=== PATIENT | male | born 1960 ===

== ENCOUNTER 2024-03-31 02:23 | Outpatient (BNV) | payer MEDICARE, MEDICAID, SELFPAY | END 2024-04-21 10:45 | PROVIDERS: Admitting Provider Psychiatry & Neurology Psychiatry; Visit Provider Radiology Diagnostic Radiology | DX: G44.309 Post-traumatic headache, unspecified, not intractable (principal) | CPT/HCPCS: 70450; 72125 ==

== ENCOUNTER 2024-03-31 02:23 | Inpatient (IN) | payer MEDICARE, MEDICAID, SELFPAY ==
--- NOTE | ~2024-03-31 | CT_ITS ---
EXAMINATION: CT HEAD WITHOUT CONTRAST CLINICAL INFORMATION: fall COMPARISON: None available. TECHNIQUE: Contiguous axial imaging was performed from the skull base to vertex without intravenous administration of contrast. This CT examination was performed using dose optimization techniques as appropriate, variously including the following: *Automated exposure control *Adjustment of mA and/or kV according to patient size (this includes techniques or standardized protocols for targeted exams where dose is matched to indication/reason for exam; i.e. extremities or head) *Use of iterative reconstruction technique DLP: 850 mGy-cm FINDINGS: Bony calvarium is intact. Skull base is intact. Probable old traumatic deformities, nasal bones. No acute intracranial hemorrhage, mass effect, midline shift, hydrocephalus or herniation. Heaton-white matter differentiation is normal. Posterior cranial fossa contents demonstrate no acute intracranial hemorrhage or mass effect. Bilateral multifocal patchy deep periventricular white matter hypodensities and slightly old appearing infarcts, basal ganglia, centrum semiovale and campbell radiata. Polypoid mucosal thickening, paranasal sinuses, more conspicuous on the right maxillary sinus. Increased density secretions, right maxillary sinus and right abnormal air cells. Tympanic cavities and mastoid air cells are aerated. CT/CT head/brain wo IV con IMPRESSION: No acute fracture, bony calvarium. No acute intracranial hemorrhage. Small vessel occlusive disease. Superimposed acute stroke/nonhemorrhagic ischemia cannot be excluded. Polypoid paranasal sinus disease. Blood products versus fungal infection, paranasal sinuses. Electronically signed by: Florencio Carrillo MD 04/21/2024 11:35 AM EDT
--- NOTE | ~2024-03-31 | XR_ITS ---
EXAMINATION: XR SHOULDER, RIGHT CLINICAL INFORMATION: Fall. Right shoulder pain COMPARISON: None available. TECHNIQUE: AP external rotation, Grashey, scapular Y, and axillary views of the right shoulder. FINDINGS: Diffuse osteopenia. Glenohumeral and acromioclavicular joint space and alignment are normal in appearance. Visualized right ribs and lung are normal in appearance. No dystrophic soft tissue calcifications. XR/XR shoulder RT min 2V IMPRESSION: No acute abnormalities. Electronically signed by: Jigar Benjamin MD 04/03/2024 07:30 AM EDT
--- NOTE | ~2024-03-31 | XR_ITS ---
EXAMINATION: XR CHEST CLINICAL INFORMATION: Chest pain and shortness of breath. COMPARISON: None available. TECHNIQUE: Frontal view of the chest was obtained. FINDINGS: Asymmetric elevation of the right hemidiaphragm. Mild subsegmental atelectasis in the right lower lung. No consolidation, pleural effusion or pneumothorax. Normal appearance of the cardiomediastinal silhouette. No acute osseous findings. XR/XR chest 1V IMPRESSION: Asymmetric elevation of the right hemidiaphragm with mild subsegmental atelectasis in the right lower lung. Electronically signed by: Keyanna Olea MD 04/13/2024 08:56 PM EDT
--- NOTE | ~2024-03-31 | CT_ITS ---
EXAMINATION: CT HEAD WITHOUT CONTRAST CLINICAL INFORMATION: Cognitive changes, hearing changes COMPARISON: None available. TECHNIQUE: Contiguous axial imaging was performed from the skull base to vertex without intravenous administration of contrast. This CT examination was performed using dose optimization techniques as appropriate, variously including the following: *Automated exposure control *Adjustment of mA and/or kV according to patient size (this includes techniques or standardized protocols for targeted exams where dose is matched to indication/reason for exam; i.e. extremities or head) *Use of iterative reconstruction technique DLP: 627 mGy-cm RESULTS: There is no evidence of acute intracranial hemorrhage, acute large vessel infarct, midline shift or mass effect. The braswell-white differentiation is preserved. There are patchy periventricular and subcortical white matter changes, which are nonspecific, but likely represent chronic microangiopathic change in a patient of this age. The ventricles and sulci are within normal limits in size and configuration. There is no evidence of hydrocephalus. There are no extraaxial collections. Osseous structures are intact. Paranasal sinuses and mastoid air cells are well aerated. CT/CT head/brain wo IV con IMPRESSION: 1. No acute intracranial pathology. 2. Mild chronic microangiopathic ischemic changes. Electronically signed by: Yanci Ramirez MD 04/15/2024 11:23 PM EDT
--- NOTE | ~2024-03-31 | CT_ITS ---
EXAMINATION: CT CERVICAL SPINE WITHOUT CONTRAST CLINICAL INFORMATION: Status post fall COMPARISON: None available. TECHNIQUE: Contiguous axial images from the skull base to the T1 using 2 mm collimation with bone and soft tissue algorithm. Sagittal and coronal reformatted images acquired. This CT examination was performed using dose optimization techniques as appropriate, variously including the following: *Automated exposure control *Adjustment of mA and/or kV according to patient size (this includes techniques or standardized protocols for targeted exams where dose is matched to indication/reason for exam; i.e. extremities or head) *Use of iterative reconstruction technique DLP: 374 mGy-cm FINDINGS: No acute cortical disruption or gross malalignment related to trauma. Marginal osteophyte formation, endplate sclerosis, subchondral cyst formation and decreased disc height C3 C7 more conspicuous at C5-6 and to a lesser extent C4-5. No prevertebral compartment hematoma. Degenerative changes in the periodontal C1 region. Grade 1 retrolisthesis C5-6 on a degenerative basis. Grade 1 anterolisthesis C3-4 on a degenerative basis. Vascular calcifications, carotid artery systems. There is a 9 mm soft tissue density in the midline of the infrahyoid thyrohyoid membrane. CT/CT cervical spine wo IV con IMPRESSION: Multilevel spondylosis without acute fracture or trauma-related listhesis. Thyroglossal duct cyst, infrahyoid. . Electronically signed by: Florencio Carrillo MD 04/21/2024 12:02 PM EDT
--- NOTE | ~2024-03-31 | XR_ITS ---
EXAMINATION: XR HIP, LEFT CLINICAL INFORMATION: Fall, left hip pain COMPARISON: None available. TECHNIQUE: Two views of the left hip. FINDINGS: No acetabular or pubic disruption seen. The femoral head and neck appear to be intact. No intertrochanteric disruption. Slight narrowing of the superior left hip joint space. XR/XR hip LT min 2V IMPRESSION: No acute fracture seen. Slight superior left hip joint space narrowing. Electronically signed by: Rocco Vila MD 04/21/2024 04:18 PM EDT
[2024-03-31 02:45] VITALS: BP 159/71; PULSE 82; RESP 16; TEMP 36.6; O2SAT 96
[2024-03-31] MEDS: traZODone HCL 50 MG TABLET PO ×2 (03:43→21:26)
[2024-03-31] MEDS: hydrOXYzine HCL 25 MG TABLET PO ×2 (03:43→21:27)
[2024-03-31 04:02] VITALS: BMI 28.0
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
[2024-03-31 08:00] VITALS: BP 140/85; PULSE 92; RESP 16; TEMP 36.6; O2SAT 98
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
[2024-03-31] MEDS: Acetaminophen 325 MG TABLET 650 MG PO (13:48)
[2024-03-31] MEDS: Famotidine 20 MG TABLET PO ×2 (16:21→21:16)
[2024-03-31] MEDS: Divalproex Sodium 250 MG TABLET.DR PO ×2 (16:22→21:16)
[2024-03-31 20:00] VITALS: BP 87/47; PULSE 101; RESP 16; TEMP 36.8; O2SAT 95
[2024-04-01] MEDS: OLANZapine 5 MG TABLET PO (01:31)
[2024-04-01] MEDS: Acetaminophen 325 MG TABLET 650 MG PO (01:31)
[2024-04-01] MEDS: traZODone HCL 50 MG TABLET PO (01:31)
[2024-04-01 08:00] VITALS: BP 112/70; PULSE 88; RESP 18; TEMP -12.3; TEMP 9.8; O2SAT 99
--- NOTE | 2024-04-01 09:04 | HO.PSYCHPN ---
Subjective Subjective Date of Service: 04/01/24 Reason For Visit: f32.A Subjective Notes: Conditional Voluntary Interim History: Reviewed with Dr. Rios. In bed most of shift. Patient declined to meet today due to feeling tired. Patient stated, I did not sleep well last night so I am just going to catch up on sleep. Can we meet tomorrow . Start: Melatonin 6mg PO bedtime Medication Compliance: Yes Side effects from medications: No Attending Groups: No Review of Systems Review of Systems Chronic hip, back, neck, shoulder pain Chronic nausea, no vomiting Chronic diffuse abd pain No acute medical complaints Constitutional: Reports as per HPI Eyes: Reports as per HPI Reports as per HPI Cardiovascular: Reports as per HPI Respiratory: Reports as per HPI Gastrointestinal: Reports as per HPI Genitourinary: Reports as per HPI Musculoskeletal: Reports as per HPI Skin/Breast: Reports as per HPI Reports as per HPI Psychiatric: Reports as per HPI Endocrine: Reports as per HPI Hematologic/Lymphatic: Reports as per HPI Allergic/Immunologic: Reports as per HPI Mental Status Exam Mental Status Exam Narrative: Pt is alert and oriented; behavior is cooperative and calm; dressed in casual attire; mood not assessed; eye contact appropriate; Speech is normal rate, volume and not pressured; thought process is organized; Thought content is on tx; SI/HI/AH/VH not expressed Diagnostics Vital Signs (24Hr): Vital Signs - 24 hr 03/31/24 20:00 Temperature 98.2 F Pulse Rate 101 H Respiratory Rate 16 Blood Pressure 87/47 L Pulse Oximetry 95 BMI result Body Mass Index 28.0 Labs 04/01/24 08:35 Medications Medications Current Medications Acetaminophen (Acetaminophen 325 Mg Tablet) 650 mg PO Q6H PRN PRN Reason: Headache/Pain Mild Scale (1-3) Last Admin: 04/01/24 01:31 Dose: 650 mg Al Hydroxide/Mg Hydroxide (Magnesium Hydrox/Alum Hydrox 30 Ml Oral.Susp) 30 ml PO Q6H PRN PRN Reason: Heartburn/Nausea Divalproex Sodium (Divalproex Sodium 250 Mg Tablet.) 250 mg PO BID [facility] Last Admin: 03/31/24 21:16 Dose: 250 mg Famotidine (Famotidine 20 Mg Tablet) 20 mg PO BID [facility] Last Admin: 03/31/24 21:16 Dose: 20 mg Hydroxyzine HCl (Hydroxyzine Hcl 25 Mg Tablet) 25 mg PO Q6H PRN PRN Reason: Anxiety Last Admin: 03/31/24 21:27 Dose: 25 mg Magnesium Hydroxide (Milk Of Magnesia 30 Ml Oral.Susp) 30 ml PO DAILY PRN PRN Reason: Constipation Nicotine Polacrilex (Nicotine Polacrilex 2 Mg Gum) 2 mg BUCCAL Q2H PRN PRN Reason: Nicotine Cravings Olanzapine (Olanzapine 5 Mg Tablet) 5 mg PO Q4H PRN PRN Reason: agitiation Last Admin: 04/01/24 01:31 Dose: 5 mg Ondansetron HCl (Ondansetron Odt 4 Mg Tab.Rapdis) 4 mg TRANSLINGU Q6H PRN PRN Reason: Nausea and Vomiting Trazodone HCl (Trazodone Hcl 50 Mg Tablet) 50 mg PO BEDTIME MRX1 PRN PRN Reason: Insomnia Last Admin: 04/01/24 01:31 Dose: 50 mg Allergies Allergies Allergy/AdvReac Type Severity Reaction Status Date / Time No Known Allergies Allergy Verified 03/31/24 03:15 Assessment & Plan Assessment & Plan (1) MDD (major depressive disorder), recurrent episode: Status: Acute Code(s): F33.9 - Major depressive disorder, recurrent, unspecified (2) PTSD (post-traumatic stress disorder): Status: Acute Code(s): F43.10 - Post-traumatic stress disorder, unspecified Plan Patient is a 63-year-old male who was brought in by ambulance to [facility] ER due to suicidal ideation and homicidal ideation secondary to getting into an argument with his roommate. Plan: CV 15 minute safety checks Start: Depakote 250mg PO BID Zyprexa 5mg PO Q4HR PRN Referral to outpatient psychiatric providers Encourage groups Discharge planning 04/01: In bed most of shift. Patient declined to meet today due to feeling tired. Patient stated, I did not sleep well last night so I am just going to catch up on sleep. Can we meet tomorrow . Start: Melatonin 6mg PO bedtime Patient educated on: medication risk/benefits Reason for continued inpatient stay Substantial Risk for: harm to self and med/psych decompensation Time Spent With Patient Time: Total time managing care of this patient today _15___ minutes.
[2024-04-01 09:09] LABS: Alanine Aminotransferase 48 U/L (0-40); Albumin Level 3.1 g/dL (3.5-5.0); Alkaline Phosphatase 70 U/L (39-117); Anion Gap 10 (12-20); Aspartate Amino Transferase 44 U/L (5-37); Bilirubin Total 0.4 mg/dL (0.0-1.0); Blood Urea Nitrogen 11 mg/dL (9-16); Calcium 8.6 mg/dL (8.4-10.2); Carbon Dioxide 26 mmol/L (22-29); Chloride 110 mmol/L (96-108); Cholesterol 120 mg/dL (<200); Creatinine Clr Calc Pharmacy 88.1; Estimated Glomerular Filt Rate > 60; Glucose Fasting 93 mg/dL (60-99); HDL Cholesterol 40 mg/dL (>40); Iron 180 mcg/dL (45-160); LDL Cholesterol Calculated 67 mg/dL (<100); Percent Iron Saturation 88 % (15-50); Potassium 3.4 mmol/L (3.3-5.1); Sodium 143 mmol/L (135-145); Total Iron Binding Capacity 205 mcg/dL (228-428); Triglycerides 67 mg/dL (<150); Unsaturated Iron Binding < 25 ug/dL
[2024-04-01 09:22] LABS: Thyroid Stimulating Hormone 1.98 uIU/mL (0.32-4.0)
[2024-04-01] MEDS: Famotidine 20 MG TABLET PO ×2 (09:25→22:21)
[2024-04-01] MEDS: Divalproex Sodium 250 MG TABLET.DR PO ×2 (09:25→22:21)
[2024-04-01 09:41] LABS: Folate 4.2 ng/mL (> or = 4.0); Vitamin B12 788 pg/mL (200-900)
[2024-04-01 20:00] VITALS: BP 117/71; PULSE 86; RESP 16; TEMP 36.5; O2SAT 98
[2024-04-01] MEDS: Melatonin 3 MG TABLET 6 MG PO (22:21)
[2024-04-02 08:15] VITALS: BP 112/60; PULSE 78; TEMP 36.4; O2SAT 96
--- NOTE | 2024-04-02 08:44 | P.PNPSI_ITS ---
Subjective Subjective Date of Service: 04/02/24 Reason For Visit: f32.A Subjective Notes: Conditional Voluntary Interim History: Reviewed with Dr. Rios. Pt continues to report depression and suicidal ideation. Pt stated, I'm still thinking about suicide. I would be more hopeful if I had somewhere safe to go after here . pt denies HI/VH/AH. Labs to be drawn tomorrow. Medication Compliance: Yes Side effects from medications: No Attending Groups: No Review of Systems Review of Systems Chronic hip, back, neck, shoulder pain Chronic nausea, no vomiting Chronic diffuse abd pain No acute medical complaints Constitutional: Reports as per HPI Eyes: Reports as per HPI Reports as per HPI Cardiovascular: Reports as per HPI Respiratory: Reports as per HPI Gastrointestinal: Reports as per HPI Genitourinary: Reports as per HPI Musculoskeletal: Reports as per HPI Skin/Breast: Reports as per HPI Reports as per HPI Psychiatric: Reports as per HPI Endocrine: Reports as per HPI Hematologic/Lymphatic: Reports as per HPI Allergic/Immunologic: Reports as per HPI Mental Status Exam Mental Status Exam Narrative: Pt is alert and oriented; behavior is cooperative and calm; dressed in casual attire; mood described as depressed ; eye contact appropriate; Speech is normal rate, volume and not pressured; thought process is organized; Thought content is on tx; denies HI/AH/VH. Pt reports suicidal ideation with no plan. Diagnostics Vital Signs (24Hr): Vital Signs - 24 hr 04/01/24 20:00 04/02/24 08:15 Temperature 97.7 F 97.6 F Pulse Rate 86 78 Respiratory Rate 16 Blood Pressure 117/71 112/60 Pulse Oximetry 98 96 Oxygen Delivery Method Room Air Room Air BMI result Body Mass Index 28.0 Labs 04/01/24 08:35 Labs: Laboratory Results - last 48 hr 04/01/24 08:35 Sodium 143 Potassium 3.4 Chloride 110 H Carbon Dioxide 26 Anion Gap 10 L BUN 11 Creatinine 0.68 Estim Creat Clear Calc 88.1 Estimated GFR > 60 Fasting Glucose 93 Calcium 8.6 Iron 180 H TIBC 205 L % Saturation 88 H Unsat Iron Binding < 25 Total Bilirubin 0.4 AST 44 H ALT 48 H Alkaline Phosphatase 70 Total Protein 5.0 L Albumin 3.1 L Triglycerides 67 Cholesterol 120 LDL Cholesterol, Calc 67 HDL Cholesterol 40 L Vitamin B12 788 Folate 4.2 TSH 1.98 Medications Medications Current Medications Acetaminophen (Acetaminophen 325 Mg Tablet) 650 mg PO Q6H PRN PRN Reason: Headache/Pain Mild Scale (1-3) Last Admin: 04/01/24 01:31 Dose: 650 mg Al Hydroxide/Mg Hydroxide (Magnesium Hydrox/Alum Hydrox 30 Ml Oral.Susp) 30 ml PO Q6H PRN PRN Reason: Heartburn/Nausea Divalproex Sodium (Divalproex Sodium 250 Mg Tablet.Dr) 250 mg PO BID [facility] Last Admin: 04/01/24 22:21 Dose: 250 mg Famotidine (Famotidine 20 Mg Tablet) 20 mg PO BID [facility] Last Admin: 04/01/24 22:21 Dose: 20 mg Hydroxyzine HCl (Hydroxyzine Hcl 25 Mg Tablet) 25 mg PO Q6H PRN PRN Reason: Anxiety Last Admin: 03/31/24 21:27 Dose: 25 mg Magnesium Hydroxide (Milk Of Magnesia 30 Ml Oral.Susp) 30 ml PO DAILY PRN PRN Reason: Constipation Melatonin (Melatonin 3 Mg Tablet) 6 mg PO BEDTIME [facility] Last Admin: 04/01/24 22:21 Dose: 6 mg Nicotine Polacrilex (Nicotine Polacrilex 2 Mg Gum) 2 mg BUCCAL Q2H PRN PRN Reason: Nicotine Cravings Olanzapine (Olanzapine 5 Mg Tablet) 5 mg PO Q4H PRN PRN Reason: agitiation Last Admin: 04/01/24 01:31 Dose: 5 mg Ondansetron HCl (Ondansetron Odt 4 Mg Tab.Rapdis) 4 mg TRANSLINGU Q6H PRN PRN Reason: Nausea and Vomiting Trazodone HCl (Trazodone Hcl 50 Mg Tablet) 50 mg PO BEDTIME MRX1 PRN PRN Reason: Insomnia Last Admin: 04/01/24 01:31 Dose: 50 mg Allergies Allergies Allergy/AdvReac Type Severity Reaction Status Date / Time No Known Allergies Allergy Verified 03/31/24 03:15 Assessment & Plan Assessment & Plan (1) MDD (major depressive disorder), recurrent episode: Status: Acute Code(s): F33.9 - Major depressive disorder, recurrent, unspecified (2) PTSD (post-traumatic stress disorder): Status: Acute Code(s): F43.10 - Post-traumatic stress disorder, unspecified Plan Patient is a 63-year-old male who was brought in by ambulance to [facility] due to suicidal ideation and homicidal ideation secondary to getting into an argument with his roommate. Plan: CV 15 minute safety checks Start: Depakote 250mg PO BID Zyprexa 5mg PO Q4HR PRN Referral to outpatient psychiatric providers Encourage groups Discharge planning 04/01: In bed most of shift. Patient declined to meet today due to feeling tired. Patient stated, I did not sleep well last night so I am just going to catch up on sleep. Can we meet tomorrow . Start: Melatonin 6mg PO bedtime 04/02: Pt continues to report depression and suicidal ideation. Pt stated, I'm still thinking about suicide. I would be more hopeful if I had somewhere safe to go after here . pt denies HI/VH/AH. Labs to be drawn tomorrow. Patient educated on: diagnosis, medication risk/benefits and therapeutic strategies Reason for continued inpatient stay Substantial Risk for: harm to self and med/psych decompensation Time Spent With Patient Time: Total time managing care of this patient today _20___ minutes.
[2024-04-02] MEDS: Famotidine 20 MG TABLET PO ×2 (09:54→21:44)
[2024-04-02] MEDS: Divalproex Sodium 250 MG TABLET.DR PO ×2 (09:54→21:44)
[2024-04-02 20:00] VITALS: BP 134/67; PULSE 88; TEMP 36.4; O2SAT 99
[2024-04-02] MEDS: Melatonin 3 MG TABLET 6 MG PO (21:44)
[2024-04-02] MEDS: Acetaminophen 325 MG TABLET 650 MG PO (21:49)
--- NOTE | 2024-04-03 00:14 | PC.NURSE ---
PT REPORTED THAT HE WAS PACING THE HALLWAY. PT HAS A WALKER BUT REFUSES TO USE IT. HE REPORTS LOSING HIS BALANCE AND SLIPPING. PT LANDED ON HIS RIGHT ARM. REPORTS 9/10 RIGHT SHOULDER PAIN AND IS HAVING DIFFICULTY MOVING HIS SHOULDER. PT REPORTS HE DID NOT HIT HIS HEAD. VITAL SIGNS 125/76, 78 BPM, 97% O2 SAT. ALERT AND ORIENTED X4. MD HANS MELGOZA CONTACTED AND ADVISED RN TO CONTACT HOSPITALIST. MD PULIDO NOTIFIED. XRAY OF RIGHT SHOULDER ORDERED.
[2024-04-03 00:15] VITALS: BP 125/76; PULSE 78; RESP 16; TEMP 36.8; O2SAT 97
[2024-04-03 08:00] VITALS: BP 120/67; PULSE 80; TEMP 36.9; O2SAT 99
[2024-04-03] MEDS: Acetaminophen 325 MG TABLET 650 MG PO ×3 (08:22→20:20)
[2024-04-03] MEDS: Famotidine 20 MG TABLET PO ×2 (08:23→20:20)
[2024-04-03] MEDS: Divalproex Sodium 250 MG TABLET.DR PO ×2 (08:23→20:20)
[2024-04-03] MEDS: OLANZapine 5 MG TABLET PO (08:24)
[2024-04-03 08:40] LABS: Ammonia 38 umol/L (13-55)
[2024-04-03 08:51] LABS: Alanine Aminotransferase 54 U/L (0-40); Albumin Level 3.8 g/dL (3.5-5.0); Alkaline Phosphatase 78 U/L (39-117); Aspartate Amino Transferase 43 U/L (5-37); Bilirubin Direct 0.1 mg/dL (0.0-0.5); Bilirubin Total 0.3 mg/dL (0.0-1.0); Total Protein 6.2 g/dL (6.5-8.0)
[2024-04-03 09:04] LABS: Valproate 50.2 mcg/mL (50.0-100.0)
--- NOTE | 2024-04-03 10:59 | HO.PSYCHPN ---
Subjective Subjective Date of Service: 04/03/24 Reason For Visit: f32.A Interim History: met with patient; discussed with team pt reports he's depressed and with SI (though not with active plan/intent)...he says he's in a real dark place. Discussed meds and he agrees to changes including increase of depakote Mental Status Exam Mental Status Exam Narrative: Pt is alert and oriented; behavior is cooperative and calm; dressed in casual attire; mood described as depressed ; eye contact appropriate; Speech is normal rate, volume and not pressured; thought process is organized; Thought content is on tx; denies HI/AH/VH. Pt reports suicidal ideation with no plan. Diagnostics Vital Signs (24Hr): Vital Signs - 24 hr 04/02/24 20:00 04/03/24 00:15 04/03/24 08:00 Temperature 97.6 F 98.2 F 98.4 F Pulse Rate 88 78 80 Respiratory Rate 16 Blood Pressure 134/67 125/76 120/67 Pulse Oximetry 99 97 99 Oxygen Delivery Method Room Air Room Air BMI result Body Mass Index 28.0 Labs 04/01/24 08:35 Labs: Laboratory Results - last 48 hr 04/03/24 08:20 Total Bilirubin 0.3 Direct Bilirubin 0.1 AST 43 H ALT 54 H Alkaline Phosphatase 78 Ammonia 38 Total Protein 6.2 L Albumin 3.8 Valproic Acid 50.2 Imaging Radiology Impressions: ITS Impressions Shoulder X-Ray 04/03/24 00:35 IMPRESSION: No acute abnormalities. Electronically signed by: Jigar Benjamin MD 04/03/2024 07:30 AM EDT Medications Medications Current Medications Acetaminophen (Acetaminophen 325 Mg Tablet) 650 mg PO Q6H PRN PRN Reason: Headache/Pain Mild Scale (1-3) Last Admin: 04/03/24 08:22 Dose: 650 mg Al Hydroxide/Mg Hydroxide (Magnesium Hydrox/Alum Hydrox 30 Ml Oral.Susp) 30 ml PO Q6H PRN PRN Reason: Heartburn/Nausea Divalproex Sodium (Divalproex Sodium 250 Mg Tablet.Dr) 250 mg PO BID [facility] Last Admin: 04/03/24 08:23 Dose: 250 mg Famotidine (Famotidine 20 Mg Tablet) 20 mg PO BID [facility] Last Admin: 04/03/24 08:23 Dose: 20 mg Hydroxyzine HCl (Hydroxyzine Hcl 25 Mg Tablet) 25 mg PO Q6H PRN PRN Reason: Anxiety Last Admin: 03/31/24 21:27 Dose: 25 mg Magnesium Hydroxide (Milk Of Magnesia 30 Ml Oral.Susp) 30 ml PO DAILY PRN PRN Reason: Constipation Melatonin (Melatonin 3 Mg Tablet) 6 mg PO BEDTIME [facility] Last Admin: 04/02/24 21:44 Dose: 6 mg Nicotine Polacrilex (Nicotine Polacrilex 2 Mg Gum) 2 mg BUCCAL Q2H PRN PRN Reason: Nicotine Cravings Olanzapine (Olanzapine 5 Mg Tablet) 5 mg PO Q4H PRN PRN Reason: agitiation Last Admin: 04/03/24 08:24 Dose: 5 mg Ondansetron HCl (Ondansetron Odt 4 Mg Tab.Rapdis) 4 mg TRANSLINGU Q6H PRN PRN Reason: Nausea and Vomiting Trazodone HCl (Trazodone Hcl 50 Mg Tablet) 50 mg PO BEDTIME MRX1 PRN PRN Reason: Insomnia Last Admin: 04/01/24 01:31 Dose: 50 mg Allergies Allergies Allergy/AdvReac Type Severity Reaction Status Date / Time No Known Allergies Allergy Verified 03/31/24 03:15 Assessment & Plan Assessment & Plan (1) MDD (major depressive disorder), recurrent episode: Status: Acute Code(s): F33.9 - Major depressive disorder, recurrent, unspecified (2) PTSD (post-traumatic stress disorder): Status: Acute Code(s): F43.10 - Post-traumatic stress disorder, unspecified Plan Patient is a 63-year-old male who was brought in by ambulance to [facility] ER due to suicidal ideation and homicidal ideation secondary to getting into an argument with his roommate. Plan: CV 15 minute safety checks Start: Depakote 250mg PO BID Zyprexa 5mg PO Q4HR PRN Referral to outpatient psychiatric providers Encourage groups Discharge planning 04/01: In bed most of shift. Patient declined to meet today due to feeling tired. Patient stated, I did not sleep well last night so I am just going to catch up on sleep. Can we meet tomorrow . Start: Melatonin 6mg PO bedtime 04/02: Pt continues to report depression and suicidal ideation. Pt stated, I'm still thinking about suicide. I would be more hopeful if I had somewhere safe to go after here . pt denies HI/VH/AH. Labs to be drawn tomorrow. 04/03 pt reports he's depressed and with SI (though not with active plan/intent)...he says he's in a real dark place. Discussed meds and he agrees to changes including increase of depakote -pt was started on Depakote for mood; he remains depressed and scientific writer considered increasing Depakote, however dx is MDD. Patient educated on: diagnosis and medication risk/benefits Informed Consent: understands, does not understand and further education needed Reason for continued inpatient stay Substantial Risk for: rapid decompensation Time Spent With Patient Time: Total time managing care of this patient today ____ minutes.
[2024-04-03 20:00] VITALS: BP 101/57; PULSE 73; RESP 16; TEMP 36.6; O2SAT 95
[2024-04-03] MEDS: Melatonin 3 MG TABLET 6 MG PO (20:20)
[2024-04-04 08:00] VITALS: BP 153/85; PULSE 66; RESP 18; TEMP 36.4; O2SAT 97
[2024-04-04] MEDS: Divalproex Sodium 250 MG TABLET.DR PO ×2 (08:17→21:08)
[2024-04-04] MEDS: Ibuprofen 600 MG TABLET PO ×2 (08:18→15:33)
[2024-04-04] MEDS: Famotidine 20 MG TABLET PO ×2 (08:18→21:08)
--- NOTE | 2024-04-04 15:22 | P.PNPSI_ITS ---
Subjective Subjective Date of Service: 04/04/24 Reason For Visit: f32.A Interim History: Met with patient; discussed with team Patient says that his mood is a little better. But he says it is because he is stoned on the medications he is on. He says he feels a little drowsy from them too. Mental Status Exam Mental Status Exam Narrative: Pt is alert and oriented; behavior is cooperative and calm; dressed in casual attire; mood described as little better ; eye contact appropriate; Speech is normal rate, volume and not pressured; thought process is organized; Thought content is on tx; denies HI/AH/VH. Pt reports suicidal ideation with no plan. Diagnostics Vital Signs (24Hr): Vital Signs - 24 hr 04/03/24 20:00 04/04/24 08:00 Temperature 97.9 F 97.6 F Pulse Rate 73 66 Respiratory Rate 16 18 Blood Pressure 101/57 L 153/85 H Pulse Oximetry 95 97 Oxygen Delivery Method Room Air Room Air BMI result Body Mass Index 28.0 Labs 04/01/24 08:35 Labs: Laboratory Results - last 48 hr 04/03/24 08:20 Total Bilirubin 0.3 Direct Bilirubin 0.1 AST 43 H ALT 54 H Alkaline Phosphatase 78 Ammonia 38 Total Protein 6.2 L Albumin 3.8 Valproic Acid 50.2 Imaging Radiology Impressions: ITS Impressions Shoulder X-Ray 04/03/24 00:35 IMPRESSION: No acute abnormalities. Electronically signed by: Jigar Benjamin MD 04/03/2024 07:30 AM EDT Medications Medications Current Medications Acetaminophen (Acetaminophen 325 Mg Tablet) 650 mg PO Q6H PRN PRN Reason: Headache/Pain Mild Scale (1-3) Last Admin: 04/03/24 20:20 Dose: 650 mg Al Hydroxide/Mg Hydroxide (Magnesium Hydrox/Alum Hydrox 30 Ml Oral.Susp) 30 ml PO Q6H PRN PRN Reason: Heartburn/Nausea Divalproex Sodium (Divalproex Sodium 250 Mg Tablet.Dr) 250 mg PO BID [facility] Last Admin: 04/04/24 08:17 Dose: 250 mg Famotidine (Famotidine 20 Mg Tablet) 20 mg PO BID [facility] Last Admin: 04/04/24 08:18 Dose: 20 mg Hydroxyzine HCl (Hydroxyzine Hcl 25 Mg Tablet) 25 mg PO Q6H PRN PRN Reason: Anxiety Last Admin: 03/31/24 21:27 Dose: 25 mg Ibuprofen (Ibuprofen 600 Mg Tablet) 600 mg PO Q6H PRN PRN Reason: moderate pain Last Admin: 04/04/24 08:18 Dose: 600 mg Magnesium Hydroxide (Milk Of Magnesia 30 Ml Oral.Susp) 30 ml PO DAILY PRN PRN Reason: Constipation Melatonin (Melatonin 3 Mg Tablet) 6 mg PO BEDTIME [facility] Last Admin: 04/03/24 20:20 Dose: 6 mg Nicotine Polacrilex (Nicotine Polacrilex 2 Mg Gum) 2 mg BUCCAL Q2H PRN PRN Reason: Nicotine Cravings Olanzapine (Olanzapine 5 Mg Tablet) 5 mg PO Q4H PRN PRN Reason: agitiation Last Admin: 04/03/24 08:24 Dose: 5 mg Ondansetron HCl (Ondansetron Odt 4 Mg Tab.Rapdis) 4 mg TRANSLINGU Q6H PRN PRN Reason: Nausea and Vomiting Trazodone HCl (Trazodone Hcl 50 Mg Tablet) 50 mg PO BEDTIME MRX1 PRN PRN Reason: Insomnia Last Admin: 04/01/24 01:31 Dose: 50 mg Allergies Allergies Allergy/AdvReac Type Severity Reaction Status Date / Time No Known Allergies Allergy Verified 03/31/24 03:15 Assessment & Plan Assessment & Plan (1) MDD (major depressive disorder), recurrent episode: Status: Acute Code(s): F33.9 - Major depressive disorder, recurrent, unspecified (2) PTSD (post-traumatic stress disorder): Status: Acute Code(s): F43.10 - Post-traumatic stress disorder, unspecified Plan Patient is a 63-year-old male who was brought in by ambulance to [facility] due to suicidal ideation and homicidal ideation secondary to getting into an argument with his roommate. Plan: CV 15 minute safety checks Start: Depakote 250mg PO BID Zyprexa 5mg PO Q4HR PRN Referral to outpatient psychiatric providers Encourage groups Discharge planning 04/01: In bed most of shift. Patient declined to meet today due to feeling tired. Patient stated, I did not sleep well last night so I am just going to catch up on sleep. Can we meet tomorrow . Start: Melatonin 6mg PO bedtime 04/02: Pt continues to report depression and suicidal ideation. Pt stated, I'm still thinking about suicide. I would be more hopeful if I had somewhere safe to go after here . pt denies HI/VH/AH. Labs to be drawn tomorrow. 04/03 pt reports he's depressed and with SI (though not with active plan/intent)...he says he's in a real dark place. 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 04/04 Patient says that his mood is a little better. But he says it is because he is stoned on the medications he is on. He says he feels a little drowsy from them too. -will defer medication management to returning provider Patient educated on: diagnosis and medication risk/benefits Informed Consent: understands, does not understand and further education needed Reason for continued inpatient stay Substantial Risk for: rapid decompensation Time Spent With Patient Time: Total time managing care of this patient today ____ minutes.
[2024-04-04 20:00] VITALS: BP 121/56; PULSE 75; RESP 16; TEMP 36.1
[2024-04-04] MEDS: Acetaminophen 325 MG TABLET 650 MG PO (21:07)
[2024-04-04] MEDS: Melatonin 3 MG TABLET 6 MG PO (21:08)
[2024-04-05 08:00] VITALS: BP 126/73; PULSE 74; RESP 16; TEMP 36.5; O2SAT 96
[2024-04-05] MEDS: Divalproex Sodium 250 MG TABLET.DR PO ×2 (08:16→22:04)
[2024-04-05] MEDS: OLANZapine 5 MG TABLET PO ×2 (08:16→23:41)
[2024-04-05] MEDS: Famotidine 20 MG TABLET PO ×2 (08:16→22:03)
[2024-04-05] MEDS: Ibuprofen 600 MG TABLET PO ×2 (08:16→22:04)
--- NOTE | 2024-04-05 11:00 | HO.PSYCHPN ---
Subjective Subjective Date of Service: 04/05/24 Reason For Visit: f32.A Subjective Notes: Conditional Voluntary Interim History: Reviewed with Dr. Rios. Pt reports feeling down and anxious d/t thinking about the future and not know what will happen. Pt reports suicidal ideation with no plan d/t not having anywhere to go . He feels medications are helping with his mood. denies HI/VH/AH. Medication Compliance: Yes Side effects from medications: No Review of Systems Review of Systems Chronic hip, back, neck, shoulder pain Chronic nausea, no vomiting Chronic diffuse abd pain No acute medical complaints Constitutional: Reports as per HPI Eyes: Reports as per HPI Reports as per HPI Cardiovascular: Reports as per HPI Respiratory: Reports as per HPI Gastrointestinal: Reports as per HPI Genitourinary: Reports as per HPI Musculoskeletal: Reports as per HPI Skin/Breast: Reports as per HPI Reports as per HPI Psychiatric: Reports as per HPI Endocrine: Reports as per HPI Hematologic/Lymphatic: Reports as per HPI Allergic/Immunologic: Reports as per HPI Mental Status Exam Mental Status Exam Narrative: Pt is alert and oriented; behavior is cooperative and calm; dressed in casual attire; mood described as little better ; eye contact appropriate; Speech is normal rate, volume and not pressured; thought process is organized; Thought content is on tx; denies HI/AH/VH. Pt reports suicidal ideation with no plan. Diagnostics Vital Signs (24Hr): Vital Signs - 24 hr 04/04/24 20:00 04/05/24 08:00 Temperature 97 F 97.7 F Pulse Rate 75 74 Respiratory Rate 16 16 Blood Pressure 121/56 L 126/73 Pulse Oximetry 96 Oxygen Delivery Method Room Air Room Air BMI result Body Mass Index 28.0 Labs 04/01/24 08:35 Imaging Radiology Impressions: ITS Impressions Shoulder X-Ray 04/03/24 00:35 IMPRESSION: No acute abnormalities. Electronically signed by: Jigar Benjamin MD 04/03/2024 07:30 AM EDT Medications Medications Current Medications Acetaminophen (Acetaminophen 325 Mg Tablet) 650 mg PO Q6H PRN PRN Reason: Headache/Pain Mild Scale (1-3) Last Admin: 04/04/24 21:07 Dose: 650 mg Al Hydroxide/Mg Hydroxide (Magnesium Hydrox/Alum Hydrox 30 Ml Oral.Susp) 30 ml PO Q6H PRN PRN Reason: Heartburn/Nausea Divalproex Sodium (Divalproex Sodium 250 Mg Tablet.Dr) 250 mg PO BID [facility] Last Admin: 04/05/24 08:16 Dose: 250 mg Famotidine (Famotidine 20 Mg Tablet) 20 mg PO BID [facility] Last Admin: 04/05/24 08:16 Dose: 20 mg Hydroxyzine HCl (Hydroxyzine Hcl 25 Mg Tablet) 25 mg PO Q6H PRN PRN Reason: Anxiety Last Admin: 03/31/24 21:27 Dose: 25 mg Ibuprofen (Ibuprofen 600 Mg Tablet) 600 mg PO Q6H PRN PRN Reason: moderate pain Last Admin: 04/05/24 08:16 Dose: 600 mg Magnesium Hydroxide (Milk Of Magnesia 30 Ml Oral.Susp) 30 ml PO DAILY PRN PRN Reason: Constipation Melatonin (Melatonin 3 Mg Tablet) 6 mg PO BEDTIME [facility] Last Admin: 04/04/24 21:08 Dose: 6 mg Nicotine Polacrilex (Nicotine Polacrilex 2 Mg Gum) 2 mg BUCCAL Q2H PRN PRN Reason: Nicotine Cravings Olanzapine (Olanzapine 5 Mg Tablet) 5 mg PO Q4H PRN PRN Reason: agitiation Last Admin: 04/05/24 08:16 Dose: 5 mg Ondansetron HCl (Ondansetron Odt 4 Mg Tab.Rapdis) 4 mg TRANSLINGU Q6H PRN PRN Reason: Nausea and Vomiting Trazodone HCl (Trazodone Hcl 50 Mg Tablet) 50 mg PO BEDTIME MRX1 PRN PRN Reason: Insomnia Last Admin: 04/01/24 01:31 Dose: 50 mg Allergies Allergies Allergy/AdvReac Type Severity Reaction Status Date / Time No Known Allergies Allergy Verified 03/31/24 03:15 Assessment & Plan Assessment & Plan (1) MDD (major depressive disorder), recurrent episode: Status: Acute Code(s): F33.9 - Major depressive disorder, recurrent, unspecified (2) PTSD (post-traumatic stress disorder): Status: Acute Code(s): F43.10 - Post-traumatic stress disorder, unspecified Plan Patient is a 63-year-old male who was brought in by ambulance to [facility] due to suicidal ideation and homicidal ideation secondary to getting into an argument with his roommate. Plan: CV 15 minute safety checks Start: Depakote 250mg PO BID Zyprexa 5mg PO Q4HR PRN Referral to outpatient psychiatric providers Encourage groups Discharge planning 04/01: In bed most of shift. Patient declined to meet today due to feeling tired. Patient stated, I did not sleep well last night so I am just going to catch up on sleep. Can we meet tomorrow . Start: Melatonin 6mg PO bedtime 04/02: Pt continues to report depression and suicidal ideation. Pt stated, I'm still thinking about suicide. I would be more hopeful if I had somewhere safe to go after here . pt denies HI/VH/AH. Labs to be drawn tomorrow. 04/03 pt reports he's depressed and with SI (though not with active plan/intent)...he says he's in a real dark place. 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 04/04 Patient says that his mood is a little better. But he says it is because he is stoned on the medications he is on. He says he feels a little drowsy from them too. -will defer medication management to returning provider 04/05: Pt reports feeling down and anxious d/t thinking about the future and not know what will happen. Pt reports suicidal ideation with no plan d/t not having anywhere to go . He feels medications are helping with his mood. denies HI/VH/AH. Patient educated on: diagnosis, medication risk/benefits and therapeutic strategies Reason for continued inpatient stay Substantial Risk for: harm to self and med/psych decompensation Time Spent With Patient Time: Total time managing care of this patient today _20___ minutes.
[2024-04-05 20:00] VITALS: BP 118/66; PULSE 86; TEMP 36.6; O2SAT 97
[2024-04-05] MEDS: traZODone HCL 50 MG TABLET PO (22:03)
[2024-04-05] MEDS: Melatonin 3 MG TABLET 6 MG PO (22:04)
[2024-04-05] MEDS: hydrOXYzine HCL 25 MG TABLET PO (23:41)
[2024-04-06 08:19] VITALS: BP 132/64; PULSE 79; TEMP 36.6; O2SAT 96
[2024-04-06] MEDS: Ibuprofen 600 MG TABLET PO ×2 (09:33→21:04)
[2024-04-06] MEDS: Divalproex Sodium 250 MG TABLET.DR PO ×2 (09:33→21:02)
[2024-04-06] MEDS: Famotidine 20 MG TABLET PO ×2 (09:33→21:02)
--- NOTE | 2024-04-06 14:01 | P.PNPSI_ITS ---
Subjective Subjective Date of Service: 04/06/24 Reason For Visit: f32.A Subjective Notes: Conditional Voluntary Interim History: Reviewed with Dr. Rios. Active on unit. pt reports feeling okay but anxious ; he continues to reports suicidal ideation with no plan. Pt stated, I'm worried I won't get into any where. I've been disappointed before with not getting placement . Pt reports difficulty sleeping. Start: Mirtazapine 7.5mg PO bedtime. denies HI/VH/AH. Medication Compliance: Yes Side effects from medications: No Attending Groups: No Review of Systems Review of Systems Chronic hip, back, neck, shoulder pain Chronic nausea, no vomiting Chronic diffuse abd pain No acute medical complaints Constitutional: Reports as per HPI Eyes: Reports as per HPI Reports as per HPI Cardiovascular: Reports as per HPI Respiratory: Reports as per HPI Gastrointestinal: Reports as per HPI Genitourinary: Reports as per HPI Musculoskeletal: Reports as per HPI Skin/Breast: Reports as per HPI Reports as per HPI Psychiatric: Reports as per HPI Endocrine: Reports as per HPI Hematologic/Lymphatic: Reports as per HPI Allergic/Immunologic: Reports as per HPI Mental Status Exam Mental Status Exam Narrative: Pt is alert and oriented; behavior is cooperative and calm; dressed in casual attire; mood described as little better ; eye contact appropriate; Speech is normal rate, volume and not pressured; thought process is organized; Thought content is on tx; denies HI/AH/VH. Pt reports suicidal ideation with no plan. Diagnostics Vital Signs (24Hr): Vital Signs - 24 hr 04/05/24 20:00 04/06/24 08:19 Temperature 97.9 F 97.8 F Pulse Rate 86 79 Blood Pressure 118/66 132/64 Pulse Oximetry 97 96 Oxygen Delivery Method Room Air Room Air BMI result Body Mass Index 28.0 Labs 04/01/24 08:35 Imaging Radiology Impressions: ITS Impressions Shoulder X-Ray 04/03/24 00:35 IMPRESSION: No acute abnormalities. Electronically signed by: Jigar Benjamin MD 04/03/2024 07:30 AM EDT Medications Medications Current Medications Acetaminophen (Acetaminophen 325 Mg Tablet) 650 mg PO Q6H PRN PRN Reason: Headache/Pain Mild Scale (1-3) Last Admin: 04/04/24 21:07 Dose: 650 mg Al Hydroxide/Mg Hydroxide (Magnesium Hydrox/Alum Hydrox 30 Ml Oral.Susp) 30 ml PO Q6H PRN PRN Reason: Heartburn/Nausea Divalproex Sodium (Divalproex Sodium 250 Mg Tablet.Dr) 250 mg PO BID [facility] Last Admin: 04/06/24 09:33 Dose: 250 mg Famotidine (Famotidine 20 Mg Tablet) 20 mg PO BID [facility] Last Admin: 04/06/24 09:33 Dose: 20 mg Hydroxyzine HCl (Hydroxyzine Hcl 25 Mg Tablet) 25 mg PO Q6H PRN PRN Reason: Anxiety Last Admin: 04/05/24 23:41 Dose: 25 mg Ibuprofen (Ibuprofen 600 Mg Tablet) 600 mg PO Q6H PRN PRN Reason: moderate pain Last Admin: 04/06/24 09:33 Dose: 600 mg Magnesium Hydroxide (Milk Of Magnesia 30 Ml Oral.Susp) 30 ml PO DAILY PRN PRN Reason: Constipation Melatonin (Melatonin 3 Mg Tablet) 6 mg PO BEDTIME [facility] Last Admin: 04/05/24 22:04 Dose: 6 mg Nicotine Polacrilex (Nicotine Polacrilex 2 Mg Gum) 2 mg BUCCAL Q2H PRN PRN Reason: Nicotine Cravings Olanzapine (Olanzapine 5 Mg Tablet) 5 mg PO Q4H PRN PRN Reason: agitiation Last Admin: 04/05/24 23:41 Dose: 5 mg Ondansetron HCl (Ondansetron Odt 4 Mg Tab.Rapdis) 4 mg TRANSLINGU Q6H PRN PRN Reason: Nausea and Vomiting Trazodone HCl (Trazodone Hcl 50 Mg Tablet) 50 mg PO BEDTIME MRX1 PRN PRN Reason: Insomnia Last Admin: 04/05/24 22:03 Dose: 50 mg Allergies Allergies Allergy/AdvReac Type Severity Reaction Status Date / Time No Known Allergies Allergy Verified 03/31/24 03:15 Assessment & Plan Assessment & Plan (1) MDD (major depressive disorder), recurrent episode: Status: Acute Code(s): F33.9 - Major depressive disorder, recurrent, unspecified (2) PTSD (post-traumatic stress disorder): Status: Acute Code(s): F43.10 - Post-traumatic stress disorder, unspecified Plan Patient is a 63-year-old male who was brought in by ambulance to [facility] due to suicidal ideation and homicidal ideation secondary to getting into an argument with his roommate. Plan: CV 15 minute safety checks Start: Depakote 250mg PO BID Zyprexa 5mg PO Q4HR PRN Referral to outpatient psychiatric providers Encourage groups Discharge planning 04/01: In bed most of shift. Patient declined to meet today due to feeling tired. Patient stated, I did not sleep well last night so I am just going to catch up on sleep. Can we meet tomorrow . Start: Melatonin 6mg PO bedtime 04/02: Pt continues to report depression and suicidal ideation. Pt stated, I'm still thinking about suicide. I would be more hopeful if I had somewhere safe to go after here . pt denies HI/VH/AH. Labs to be drawn tomorrow. 04/03 pt reports he's depressed and with SI (though not with active plan/intent)...he says he's in a real dark place. 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 04/04 Patient says that his mood is a little better. But he says it is because he is stoned on the medications he is on. He says he feels a little drowsy from them too. -will defer medication management to returning provider 04/05: Pt reports feeling down and anxious d/t thinking about the future and not know what will happen. Pt reports suicidal ideation with no plan d/t not having anywhere to go . He feels medications are helping with his mood. denies HI/VH/AH. 04/06:Active on unit. pt reports feeling okay but anxious ; he continues to reports suicidal ideation with no plan. Pt stated, I'm worried I won't get into any where. I've been disappointed before with not getting placement . Pt reports difficulty sleeping. Start: Mirtazapine 7.5mg PO bedtime. denies HI/VH/AH. Patient educated on: diagnosis, medication risk/benefits and therapeutic strategies Reason for continued inpatient stay Substantial Risk for: harm to self and med/psych decompensation Time Spent With Patient Time: Total time managing care of this patient today _20___ minutes.
[2024-04-06] MEDS: Acetaminophen 325 MG TABLET 650 MG PO (14:14)
[2024-04-06 20:00] VITALS: BP 138/77; PULSE 76; TEMP 36.4; O2SAT 99
[2024-04-06] MEDS: Mirtazapine 7.5 MG TABLET PO (21:02)
[2024-04-06] MEDS: Melatonin 3 MG TABLET 6 MG PO (21:02)
[2024-04-06] MEDS: hydrOXYzine HCL 25 MG TABLET PO (21:04)
[2024-04-07 08:03] VITALS: BP 114/59; PULSE 67; TEMP 36.6; O2SAT 98
[2024-04-07] MEDS: Divalproex Sodium 250 MG TABLET.DR PO ×2 (08:35→20:47)
[2024-04-07] MEDS: Famotidine 20 MG TABLET PO ×2 (08:35→20:46)
[2024-04-07] MEDS: Ibuprofen 600 MG TABLET PO ×2 (09:05→20:47)
--- NOTE | 2024-04-07 15:03 | HO.PSYCHPN ---
Subjective Subjective Date of Service: 04/07/24 Reason For Visit: f32.A Subjective Notes: Conditional Voluntary Interim History: Reviewed with Dr. Rios. pt reports feeling not great today; patient stated, I'm really missing my best friend today, who was like my brother. I don't have anything anymore . Patient continues to report suicidal ideation with no plan. Patient reports waking up a few times last night. denies HI/VH/AH. Continue current treatment plan. Medication Compliance: Yes Side effects from medications: No Review of Systems Review of Systems Chronic hip, back, neck, shoulder pain Chronic nausea, no vomiting Chronic diffuse abd pain No acute medical complaints Constitutional: Reports as per HPI Eyes: Reports as per HPI Reports as per HPI Cardiovascular: Reports as per HPI Respiratory: Reports as per HPI Gastrointestinal: Reports as per HPI Genitourinary: Reports as per HPI Musculoskeletal: Reports as per HPI Skin/Breast: Reports as per HPI Reports as per HPI Psychiatric: Reports as per HPI Endocrine: Reports as per HPI Hematologic/Lymphatic: Reports as per HPI Allergic/Immunologic: Reports as per HPI Mental Status Exam Mental Status Exam Narrative: Pt is alert and oriented; behavior is cooperative and calm; dressed in casual attire; mood described as sad ; eye contact appropriate; Speech is normal rate, volume and not pressured; thought process is organized; Thought content is on tx; denies HI/AH/VH. Pt reports suicidal ideation with no plan. Diagnostics Vital Signs (24Hr): Vital Signs - 24 hr 04/06/24 20:00 04/07/24 08:03 Temperature 97.6 F 97.8 F Pulse Rate 76 67 Blood Pressure 138/77 114/59 L Pulse Oximetry 99 98 Oxygen Delivery Method Room Air Room Air BMI result Body Mass Index 28.0 Labs 04/01/24 08:35 Imaging Radiology Impressions: ITS Impressions Shoulder X-Ray 04/03/24 00:35 IMPRESSION: No acute abnormalities. Electronically signed by: Jigar Benjamin MD 04/03/2024 07:30 AM EDT Medications Medications Current Medications Acetaminophen (Acetaminophen 325 Mg Tablet) 650 mg PO Q6H PRN PRN Reason: Headache/Pain Mild Scale (1-3) Last Admin: 04/06/24 14:14 Dose: 650 mg Al Hydroxide/Mg Hydroxide (Magnesium Hydrox/Alum Hydrox 30 Ml Oral.Susp) 30 ml PO Q6H PRN PRN Reason: Heartburn/Nausea Divalproex Sodium (Divalproex Sodium 250 Mg Tablet.Dr) 250 mg PO BID [facility] Last Admin: 04/07/24 08:35 Dose: 250 mg Famotidine (Famotidine 20 Mg Tablet) 20 mg PO BID [facility] Last Admin: 04/07/24 08:35 Dose: 20 mg Hydroxyzine HCl (Hydroxyzine Hcl 25 Mg Tablet) 25 mg PO Q6H PRN PRN Reason: Anxiety Last Admin: 04/06/24 21:04 Dose: 25 mg Ibuprofen (Ibuprofen 600 Mg Tablet) 600 mg PO Q6H PRN PRN Reason: moderate pain Last Admin: 04/07/24 09:05 Dose: 600 mg Magnesium Hydroxide (Milk Of Magnesia 30 Ml Oral.Susp) 30 ml PO DAILY PRN PRN Reason: Constipation Melatonin (Melatonin 3 Mg Tablet) 6 mg PO BEDTIME [facility] Last Admin: 04/06/24 21:02 Dose: 6 mg Mirtazapine (Mirtazapine 7.5 Mg Tablet) 7.5 mg PO BEDTIME [facility] Last Admin: 04/06/24 21:02 Dose: 7.5 mg Nicotine Polacrilex (Nicotine Polacrilex 2 Mg Gum) 2 mg BUCCAL Q2H PRN PRN Reason: Nicotine Cravings Olanzapine (Olanzapine 5 Mg Tablet) 5 mg PO Q4H PRN PRN Reason: agitiation Last Admin: 04/05/24 23:41 Dose: 5 mg Ondansetron HCl (Ondansetron Odt 4 Mg Tab.Rapdis) 4 mg TRANSLINGU Q6H PRN PRN Reason: Nausea and Vomiting Trazodone HCl (Trazodone Hcl 50 Mg Tablet) 50 mg PO BEDTIME MRX1 PRN PRN Reason: Insomnia Last Admin: 04/05/24 22:03 Dose: 50 mg Allergies Allergies Allergy/AdvReac Type Severity Reaction Status Date / Time No Known Allergies Allergy Verified 03/31/24 03:15 Assessment & Plan Assessment & Plan (1) MDD (major depressive disorder), recurrent episode: Status: Acute Code(s): F33.9 - Major depressive disorder, recurrent, unspecified (2) PTSD (post-traumatic stress disorder): Status: Acute Code(s): F43.10 - Post-traumatic stress disorder, unspecified Plan Patient is a 63-year-old male who was brought in by ambulance to [facility] ER due to suicidal ideation and homicidal ideation secondary to getting into an argument with his roommate. Plan: CV 15 minute safety checks Start: Depakote 250mg PO BID Zyprexa 5mg PO Q4HR PRN Referral to outpatient psychiatric providers Encourage groups Discharge planning 04/01: In bed most of shift. Patient declined to meet today due to feeling tired. Patient stated, I did not sleep well last night so I am just going to catch up on sleep. Can we meet tomorrow . Start: Melatonin 6mg PO bedtime 04/02: Pt continues to report depression and suicidal ideation. Pt stated, I'm still thinking about suicide. I would be more hopeful if I had somewhere safe to go after here . pt denies HI/VH/AH. Labs to be drawn tomorrow. 04/03 pt reports he's depressed and with SI (though not with active plan/intent)...he says he's in a real dark place. 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 04/04 Patient says that his mood is a little better. But he says it is because he is stoned on the medications he is on. He says he feels a little drowsy from them too. -will defer medication management to returning provider 04/05: Pt reports feeling down and anxious d/t thinking about the future and not know what will happen. Pt reports suicidal ideation with no plan d/t not having anywhere to go . He feels medications are helping with his mood. denies HI/VH/AH. 04/06:Active on unit. pt reports feeling okay but anxious ; he continues to reports suicidal ideation with no plan. Pt stated, I'm worried I won't get into any where. I've been disappointed before with not getting placement . Pt reports difficulty sleeping. Start: Mirtazapine 7.5mg PO bedtime. denies HI/VH/AH. 04/07: pt reports feeling not great today; patient stated, I'm really missing my best friend today, who was like my brother. I don't have anything anymore . Patient continues to report suicidal ideation with no plan. Patient reports waking up a few times last night. denies HI/VH/AH. Continue current treatment plan. Patient educated on: diagnosis, medication risk/benefits and therapeutic strategies Reason for continued inpatient stay Substantial Risk for: harm to self and med/psych decompensation Time Spent With Patient Time: Total time managing care of this patient today _20___ minutes.
[2024-04-07 20:00] VITALS: BP 116/59; PULSE 88; TEMP 36.6; O2SAT 98
[2024-04-07] MEDS: Melatonin 3 MG TABLET 6 MG PO (20:15)
[2024-04-07] MEDS: Mirtazapine 7.5 MG TABLET PO (20:46)
[2024-04-07] MEDS: traZODone HCL 50 MG TABLET PO (20:47)
[2024-04-07] MEDS: OLANZapine 5 MG TABLET PO (20:59)
[2024-04-08] MEDS: Ibuprofen 600 MG TABLET PO ×2 (06:18→18:25)
[2024-04-08 07:00] VITALS: BMI 31.1
[2024-04-08 08:00] VITALS: BP 132/62; PULSE 65; RESP 18; TEMP 36.6; O2SAT 97
[2024-04-08] MEDS: Famotidine 20 MG TABLET PO ×2 (08:42→20:21)
[2024-04-08] MEDS: Divalproex Sodium 250 MG TABLET.DR PO ×2 (08:42→20:21)
[2024-04-08] MEDS: OLANZapine 5 MG TABLET PO ×2 (08:52→18:28)
[2024-04-08] MEDS: hydrOXYzine HCL 25 MG TABLET PO ×2 (08:52→18:27)
--- NOTE | 2024-04-08 12:28 | P.PNPSI_ITS ---
Subjective Subjective Date of Service: 04/08/24 Reason For Visit: f32.A Subjective Notes: Conditional Voluntary Interim History: Reviewed with Dr. Rios. pt reports feeling okay today; patient stated, I'm waiting to see if I get to go to the [facility]. It seems like a good place . Patient reports passive suicidal ideation with no plan. he continues to reports waking up a few times last night. denies HI/VH/AH. Increase: Mirtazapine to 15mg PO bedtime Medication Compliance: Yes Side effects from medications: No Attending Groups: Intermittent Review of Systems Review of Systems Chronic hip, back, neck, shoulder pain Chronic nausea, no vomiting Chronic diffuse abd pain No acute medical complaints Constitutional: Reports as per HPI Eyes: Reports as per HPI Reports as per HPI Cardiovascular: Reports as per HPI Respiratory: Reports as per HPI Gastrointestinal: Reports as per HPI Genitourinary: Reports as per HPI Musculoskeletal: Reports as per HPI Skin/Breast: Reports as per HPI Reports as per HPI Psychiatric: Reports as per HPI Endocrine: Reports as per HPI Hematologic/Lymphatic: Reports as per HPI Allergic/Immunologic: Reports as per HPI Mental Status Exam Mental Status Exam Narrative: Pt is alert and oriented; behavior is cooperative and calm; dressed in casual attire; mood described as okay ; eye contact appropriate; Speech is normal rate, volume and not pressured; thought process is organized; Thought content is on tx; denies HI/AH/VH. Pt reports passive suicidal ideation with no plan. Diagnostics Vital Signs (24Hr): Vital Signs - 24 hr 04/07/24 20:00 04/08/24 08:00 Temperature 97.8 F 97.8 F Pulse Rate 88 65 Respiratory Rate 18 Blood Pressure 116/59 L 132/62 Pulse Oximetry 98 97 Oxygen Delivery Method Room Air Room Air BMI result Body Mass Index 28.0 Labs 04/01/24 08:35 Imaging Radiology Impressions: ITS Impressions Shoulder X-Ray 04/03/24 00:35 IMPRESSION: No acute abnormalities. Electronically signed by: Jigar Benjamin MD 04/03/2024 07:30 AM EDT Medications Medications Current Medications Acetaminophen (Acetaminophen 325 Mg Tablet) 650 mg PO Q6H PRN PRN Reason: Headache/Pain Mild Scale (1-3) Last Admin: 04/06/24 14:14 Dose: 650 mg Al Hydroxide/Mg Hydroxide (Magnesium Hydrox/Alum Hydrox 30 Ml Oral.Susp) 30 ml PO Q6H PRN PRN Reason: Heartburn/Nausea Divalproex Sodium (Divalproex Sodium 250 Mg Tablet.Dr) 250 mg PO BID [facility] Last Admin: 04/08/24 08:42 Dose: 250 mg Famotidine (Famotidine 20 Mg Tablet) 20 mg PO BID [facility] Last Admin: 04/08/24 08:42 Dose: 20 mg Hydroxyzine HCl (Hydroxyzine Hcl 25 Mg Tablet) 25 mg PO Q6H PRN PRN Reason: Anxiety Last Admin: 04/08/24 08:52 Dose: 25 mg Ibuprofen (Ibuprofen 600 Mg Tablet) 600 mg PO Q6H PRN PRN Reason: moderate pain Last Admin: 04/08/24 06:18 Dose: 600 mg Magnesium Hydroxide (Milk Of Magnesia 30 Ml Oral.Susp) 30 ml PO DAILY PRN PRN Reason: Constipation Melatonin (Melatonin 3 Mg Tablet) 6 mg PO BEDTIME [facility] Last Admin: 04/07/24 20:15 Dose: 6 mg Mirtazapine (Mirtazapine 7.5 Mg Tablet) 7.5 mg PO BEDTIME [facility] Last Admin: 04/07/24 20:46 Dose: 7.5 mg Nicotine Polacrilex (Nicotine Polacrilex 2 Mg Gum) 2 mg BUCCAL Q2H PRN PRN Reason: Nicotine Cravings Olanzapine (Olanzapine 5 Mg Tablet) 5 mg PO Q4H PRN PRN Reason: AH or agitiation Ondansetron HCl (Ondansetron Odt 4 Mg Tab.Rapdis) 4 mg TRANSLINGU Q6H PRN PRN Reason: Nausea and Vomiting Trazodone HCl (Trazodone Hcl 50 Mg Tablet) 50 mg PO BEDTIME MRX1 PRN PRN Reason: Insomnia Last Admin: 04/07/24 20:47 Dose: 50 mg Allergies Allergies Allergy/AdvReac Type Severity Reaction Status Date / Time No Known Allergies Allergy Verified 03/31/24 03:15 Assessment & Plan Assessment & Plan (1) MDD (major depressive disorder), recurrent episode: Status: Acute Code(s): F33.9 - Major depressive disorder, recurrent, unspecified (2) PTSD (post-traumatic stress disorder): Status: Acute Code(s): F43.10 - Post-traumatic stress disorder, unspecified Plan Patient is a 63-year-old male who was brought in by ambulance to [facility] ER due to suicidal ideation and homicidal ideation secondary to getting into an argument with his roommate. Plan: CV 15 minute safety checks Start: Depakote 250mg PO BID Zyprexa 5mg PO Q4HR PRN Referral to outpatient psychiatric providers Encourage groups Discharge planning 04/01: In bed most of shift. Patient declined to meet today due to feeling tired. Patient stated, I did not sleep well last night so I am just going to catch up on sleep. Can we meet tomorrow . Start: Melatonin 6mg PO bedtime 04/02: Pt continues to report depression and suicidal ideation. Pt stated, I'm still thinking about suicide. I would be more hopeful if I had somewhere safe to go after here . pt denies HI/VH/AH. Labs to be drawn tomorrow. 04/03 pt reports he's depressed and with SI (though not with active plan/intent)...he says he's in a real dark place. 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 04/04 Patient says that his mood is a little better. But he says it is because he is stoned on the medications he is on. He says he feels a little drowsy from them too. -will defer medication management to returning provider 04/05: Pt reports feeling down and anxious d/t thinking about the future and not know what will happen. Pt reports suicidal ideation with no plan d/t not having anywhere to go . He feels medications are helping with his mood. denies HI/VH/AH. 04/06:Active on unit. pt reports feeling okay but anxious ; he continues to reports suicidal ideation with no plan. Pt stated, I'm worried I won't get into any where. I've been disappointed before with not getting placement . Pt reports difficulty sleeping. Start: Mirtazapine 7.5mg PO bedtime. denies HI/VH/AH. 04/07: pt reports feeling not great today; patient stated, I'm really missing my best friend today, who was like my brother. I don't have anything anymore . Patient continues to report suicidal ideation with no plan. Patient reports waking up a few times last night. denies HI/VH/AH. Continue current treatment plan. 04/08: pt reports feeling okay today; patient stated, I'm waiting to see if I get to go to the [facility]. It seems like a good place . Patient reports passive suicidal ideation with no plan. he continues to reports waking up a few times last night. denies HI/VH/AH. Increase: Mirtazapine to 15mg PO bedtime Patient educated on: diagnosis, medication risk/benefits and therapeutic strategies Reason for continued inpatient stay Substantial Risk for: harm to self and med/psych decompensation Time Spent With Patient Time: Total time managing care of this patient today _20___ minutes.
[2024-04-08 19:44] VITALS: BP 142/81; PULSE 90; RESP 18; TEMP 36.8; O2SAT 97
[2024-04-08] MEDS: Melatonin 3 MG TABLET 6 MG PO (20:21)
[2024-04-08] MEDS: traZODone HCL 50 MG TABLET PO (20:21)
[2024-04-08] MEDS: Mirtazapine 15 MG TABLET PO (20:21)
[2024-04-09 08:31] VITALS: BP 156/70; PULSE 68; TEMP 36.5; O2SAT 97
[2024-04-09 09:45] LABS: Ammonia 35 umol/L (13-55)
[2024-04-09 09:52] LABS: Valproate 39.9 mcg/mL (50.0-100.0)
[2024-04-09 09:57] LABS: Alanine Aminotransferase 53 U/L (0-40); Albumin Level 3.7 g/dL (3.5-5.0); Alkaline Phosphatase 79 U/L (39-117); Aspartate Amino Transferase 44 U/L (5-37); Bilirubin Direct 0.2 mg/dL (0.0-0.5); Bilirubin Total 0.3 mg/dL (0.0-1.0); Total Protein 6.1 g/dL (6.5-8.0)
[2024-04-09] MEDS: Famotidine 20 MG TABLET PO ×2 (10:11→20:42)
[2024-04-09] MEDS: Divalproex Sodium 250 MG TABLET.DR PO ×2 (10:11→20:42)
[2024-04-09] MEDS: Ibuprofen 600 MG TABLET PO ×2 (12:04→20:53)
--- NOTE | 2024-04-09 12:54 | P.PNPSI_ITS ---
Subjective Subjective Date of Service: 04/09/24 Reason For Visit: f32.A Subjective Notes: Conditional Voluntary Interim History: Reviewed with Dr. Rios. pt reports feeling okay today. Pt reports he only woke up twice rather than 3 times last night . He reports chronic passive suicidal ideation; pt stated, I have always felt suicidal but I reach out for help before acting on it . denies HI/VH/AH. Medication Compliance: Yes Side effects from medications: No Attending Groups: Intermittent Review of Systems Review of Systems Chronic hip, back, neck, shoulder pain Chronic nausea, no vomiting Chronic diffuse abd pain No acute medical complaints Constitutional: Reports as per HPI Eyes: Reports as per HPI Reports as per HPI Cardiovascular: Reports as per HPI Respiratory: Reports as per HPI Gastrointestinal: Reports as per HPI Genitourinary: Reports as per HPI Musculoskeletal: Reports as per HPI Skin/Breast: Reports as per HPI Reports as per HPI Psychiatric: Reports as per HPI Endocrine: Reports as per HPI Hematologic/Lymphatic: Reports as per HPI Allergic/Immunologic: Reports as per HPI Mental Status Exam Mental Status Exam Narrative: Pt is alert and oriented; behavior is cooperative and calm; dressed in casual attire; mood described as okay ; eye contact appropriate; Speech is normal rate, volume and not pressured; thought process is organized; Thought content is on tx; denies HI/AH/VH. Pt reports chronic passive suicidal ideation with no plan. Diagnostics Vital Signs (24Hr): Vital Signs - 24 hr 04/08/24 19:44 04/09/24 08:31 Temperature 98.2 F 97.7 F Pulse Rate 90 68 Respiratory Rate 18 Blood Pressure 142/81 H 156/70 H Pulse Oximetry 97 97 Oxygen Delivery Method Room Air Room Air BMI result Body Mass Index 31.1 Labs 04/01/24 08:35 Labs: Laboratory Results - last 48 hr 04/09/24 08:49 Total Bilirubin 0.3 Direct Bilirubin 0.2 AST 44 H ALT 53 H Alkaline Phosphatase 79 Ammonia 35 Total Protein 6.1 L Albumin 3.7 Valproic Acid 39.9 L Imaging Radiology Impressions: ITS Impressions Shoulder X-Ray 04/03/24 00:35 IMPRESSION: No acute abnormalities. Electronically signed by: Jigar Benjamin MD 04/03/2024 07:30 AM EDT Medications Medications Current Medications Acetaminophen (Acetaminophen 325 Mg Tablet) 650 mg PO Q6H PRN PRN Reason: Headache/Pain Mild Scale (1-3) Last Admin: 04/06/24 14:14 Dose: 650 mg Al Hydroxide/Mg Hydroxide (Magnesium Hydrox/Alum Hydrox 30 Ml Oral.Susp) 30 ml PO Q6H PRN PRN Reason: Heartburn/Nausea Divalproex Sodium (Divalproex Sodium 250 Mg Tablet.Dr) 250 mg PO BID [facility] Last Admin: 04/09/24 10:11 Dose: 250 mg Famotidine (Famotidine 20 Mg Tablet) 20 mg PO BID [facility] Last Admin: 04/09/24 10:11 Dose: 20 mg Hydroxyzine HCl (Hydroxyzine Hcl 25 Mg Tablet) 25 mg PO Q6H PRN PRN Reason: Anxiety Last Admin: 04/08/24 18:27 Dose: 25 mg Ibuprofen (Ibuprofen 600 Mg Tablet) 600 mg PO Q6H PRN PRN Reason: moderate pain Last Admin: 04/09/24 12:04 Dose: 600 mg Magnesium Hydroxide (Milk Of Magnesia 30 Ml Oral.Susp) 30 ml PO DAILY PRN PRN Reason: Constipation Melatonin (Melatonin 3 Mg Tablet) 6 mg PO BEDTIME [facility] Last Admin: 04/08/24 20:21 Dose: 6 mg Mirtazapine (Mirtazapine 15 Mg Tablet) 15 mg PO BEDTIME [facility] Last Admin: 04/08/24 20:21 Dose: 15 mg Nicotine Polacrilex (Nicotine Polacrilex 2 Mg Gum) 2 mg BUCCAL Q2H PRN PRN Reason: Nicotine Cravings Olanzapine (Olanzapine 5 Mg Tablet) 5 mg PO Q4H PRN PRN Reason: AH or agitiation Last Admin: 04/08/24 18:28 Dose: 5 mg Ondansetron HCl (Ondansetron Odt 4 Mg Tab.Rapdis) 4 mg TRANSLINGU Q6H PRN PRN Reason: Nausea and Vomiting Trazodone HCl (Trazodone Hcl 50 Mg Tablet) 50 mg PO BEDTIME MRX1 PRN PRN Reason: Insomnia Last Admin: 04/08/24 20:21 Dose: 50 mg Allergies Allergies Allergy/AdvReac Type Severity Reaction Status Date / Time No Known Allergies Allergy Verified 03/31/24 03:15 Assessment & Plan Assessment & Plan (1) MDD (major depressive disorder), recurrent episode: Status: Acute Code(s): F33.9 - Major depressive disorder, recurrent, unspecified (2) PTSD (post-traumatic stress disorder): Status: Acute Code(s): F43.10 - Post-traumatic stress disorder, unspecified Plan Patient is a 63-year-old male who was brought in by ambulance to [facility] ER due to suicidal ideation and homicidal ideation secondary to getting into an argument with his roommate. Plan: CV 15 minute safety checks Start: Depakote 250mg PO BID Zyprexa 5mg PO Q4HR PRN Referral to outpatient psychiatric providers Encourage groups Discharge planning 04/01: In bed most of shift. Patient declined to meet today due to feeling tired. Patient stated, I did not sleep well last night so I am just going to catch up on sleep. Can we meet tomorrow . Start: Melatonin 6mg PO bedtime 04/02: Pt continues to report depression and suicidal ideation. Pt stated, I'm still thinking about suicide. I would be more hopeful if I had somewhere safe to go after here . pt denies HI/VH/AH. Labs to be drawn tomorrow. 04/03 pt reports he's depressed and with SI (though not with active plan/intent)...he says he's in a real dark place. Discussed meds and he agrees to changes including increase of depakote -pt was started on Depakote for mood; he remains depressed and proposal lead writer considered increasing Depakote, however dx is MDD. 04/04 Patient says that his mood is a little better. But he says it is because he is stoned on the medications he is on. He says he feels a little drowsy from them too. -will defer medication management to returning provider 04/05: Pt reports feeling down and anxious d/t thinking about the future and not know what will happen. Pt reports suicidal ideation with no plan d/t not having anywhere to go . He feels medications are helping with his mood. denies HI/VH/AH. 04/06:Active on unit. pt reports feeling okay but anxious ; he continues to reports suicidal ideation with no plan. Pt stated, I'm worried I won't get into any where. I've been disappointed before with not getting placement . Pt reports difficulty sleeping. Start: Mirtazapine 7.5mg PO bedtime. denies HI/VH/AH. 04/07: pt reports feeling not great today; patient stated, I'm really missing my best friend today, who was like my brother. I don't have anything anymore . Patient continues to report suicidal ideation with no plan. Patient reports waking up a few times last night. denies HI/VH/AH. Continue current treatment plan. 04/08: pt reports feeling okay today; patient stated, I'm waiting to see if I get to go to the [facility]. It seems like a good place . Patient reports passive suicidal ideation with no plan. he continues to reports waking up a few times last night. denies HI/VH/AH. Increase: Mirtazapine to 15mg PO bedtime 04/09: pt reports feeling okay today. Pt reports he only woke up twice rather than 3 times last night . He reports chronic passive suicidal ideation; pt stated, I have always felt suicidal but I reach out for help before acting on it . denies HI/VH/AH. Patient educated on: diagnosis and medication risk/benefits Reason for continued inpatient stay Substantial Risk for: med/psych decompensation Time Spent With Patient Time: Total time managing care of this patient today _20___ minutes.
[2024-04-09 14:25] VITALS: BP 120/64; PULSE 80
[2024-04-09 20:00] VITALS: BP 165/72; BP 177/85; PULSE 78; TEMP 36.8; O2SAT 97
[2024-04-09] MEDS: traZODone HCL 50 MG TABLET PO (20:42)
[2024-04-09] MEDS: Melatonin 3 MG TABLET 6 MG PO (20:43)
[2024-04-09] MEDS: Mirtazapine 15 MG TABLET PO (20:43)
[2024-04-10] MEDS: Acetaminophen 325 MG TABLET 650 MG PO ×2 (07:12→20:21)
[2024-04-10 09:03] VITALS: BP 119/60; PULSE 72; RESP 17; TEMP 35.9; O2SAT 97
[2024-04-10] MEDS: Divalproex Sodium 250 MG TABLET.DR PO ×2 (09:15→20:07)
[2024-04-10] MEDS: Famotidine 20 MG TABLET PO ×2 (09:15→20:07)
[2024-04-10] MEDS: OLANZapine 5 MG TABLET PO (09:15)
[2024-04-10] MEDS: hydrOXYzine HCL 25 MG TABLET PO ×2 (09:15→20:07)
[2024-04-10] MEDS: Ibuprofen 600 MG TABLET PO (16:53)
[2024-04-10 20:00] VITALS: BP 166/88; PULSE 88; RESP 16; TEMP 36.5; O2SAT 97
[2024-04-10] MEDS: Melatonin 3 MG TABLET 6 MG PO (20:07)
[2024-04-10] MEDS: Mirtazapine 15 MG TABLET PO (20:07)
[2024-04-11] MEDS: Acetaminophen 325 MG TABLET 650 MG PO (06:27)
[2024-04-11] MEDS: hydrOXYzine HCL 25 MG TABLET PO ×2 (08:34→21:46)
[2024-04-11] MEDS: Famotidine 20 MG TABLET PO ×2 (08:34→21:44)
[2024-04-11] MEDS: Divalproex Sodium 250 MG TABLET.DR PO ×2 (08:34→21:44)
[2024-04-11] MEDS: Milk of Magnesia 30 ML ORAL.SUSP PO (08:39)
[2024-04-11] MEDS: Ibuprofen 600 MG TABLET PO ×2 (08:39→21:45)
--- NOTE | 2024-04-11 08:53 | P.PNPSI_ITS ---
Subjective Subjective Date of Service: 04/10/24 Reason For Visit: f32.A Subjective Notes: Conditional Voluntary Interim History: Patient was seen and discussed in rounds today. Records and plans were reviewed. He has been doing a little better. He is isolative and withdrawn. Continues to endorse depression and anxiety. Passive SI. Sleeping a little better but still not great. No changes were made today Review of Systems Review of Systems Hearing impaired. Hip pain. Allergy symptoms Yes all other systems are reviewed and are negative Mental Status Exam Mental Status Exam Narrative: In today's visit he is alert, oriented and pleasant. Normal speech. Moderate eye contact. Affect is appropriate and constricted. Moderate anxiety present. No signs of psychosis. No AVH. Passive SI. Cognitively is grossly intact. Judgment is intact Diagnostics Vital Signs (24Hr): Vital Signs - 24 hr 04/10/24 09:03 04/10/24 20:00 Temperature 96.7 F L 97.7 F Pulse Rate 72 88 Respiratory Rate 17 16 Blood Pressure 119/60 166/88 H Pulse Oximetry 97 97 Oxygen Delivery Method Room Air Room Air BMI result Body Mass Index 31.1 Labs 04/01/24 08:35 Labs: Laboratory Results - last 48 hr 04/09/24 08:49 Total Bilirubin 0.3 Direct Bilirubin 0.2 AST 44 H ALT 53 H Alkaline Phosphatase 79 Ammonia 35 Total Protein 6.1 L Albumin 3.7 Valproic Acid 39.9 L Imaging Radiology Impressions: ITS Impressions Shoulder X-Ray 04/03/24 00:35 IMPRESSION: No acute abnormalities. Electronically signed by: Jigar Benjamin MD 04/03/2024 07:30 AM EDT Medications Medications Current Medications Acetaminophen (Acetaminophen 325 Mg Tablet) 650 mg PO Q6H PRN PRN Reason: Headache/Pain Mild Scale (1-3) Last Admin: 04/11/24 06:27 Dose: 650 mg Al Hydroxide/Mg Hydroxide (Magnesium Hydrox/Alum Hydrox 30 Ml Oral.Susp) 30 ml PO Q6H PRN PRN Reason: Heartburn/Nausea Divalproex Sodium (Divalproex Sodium 250 Mg Tablet.) 250 mg PO BID [facility] Last Admin: 04/11/24 08:34 Dose: 250 mg Famotidine (Famotidine 20 Mg Tablet) 20 mg PO BID [facility] Last Admin: 04/11/24 08:34 Dose: 20 mg Hydroxyzine HCl (Hydroxyzine Hcl 25 Mg Tablet) 25 mg PO Q6H PRN PRN Reason: Anxiety Last Admin: 04/11/24 08:34 Dose: 25 mg Ibuprofen (Ibuprofen 600 Mg Tablet) 600 mg PO Q6H PRN PRN Reason: moderate pain Last Admin: 04/11/24 08:39 Dose: 600 mg Magnesium Hydroxide (Milk Of Magnesia 30 Ml Oral.Susp) 30 ml PO DAILY PRN PRN Reason: Constipation Last Admin: 04/11/24 08:39 Dose: 30 ml Melatonin (Melatonin 3 Mg Tablet) 6 mg PO BEDTIME [facility] Last Admin: 04/10/24 20:07 Dose: 6 mg Mirtazapine (Mirtazapine 15 Mg Tablet) 15 mg PO BEDTIME [facility] Last Admin: 04/10/24 20:07 Dose: 15 mg Nicotine Polacrilex (Nicotine Polacrilex 2 Mg Gum) 2 mg BUCCAL Q2H PRN PRN Reason: Nicotine Cravings Olanzapine (Olanzapine 5 Mg Tablet) 5 mg PO Q4H PRN PRN Reason: AH or agitiation Last Admin: 04/10/24 09:15 Dose: 5 mg Ondansetron HCl (Ondansetron Odt 4 Mg Tab.Rapdis) 4 mg TRANSLINGU Q6H PRN PRN Reason: Nausea and Vomiting Trazodone HCl (Trazodone Hcl 50 Mg Tablet) 50 mg PO BEDTIME MRX1 PRN PRN Reason: Insomnia Last Admin: 04/09/24 20:42 Dose: 50 mg Allergies Allergies Allergy/AdvReac Type Severity Reaction Status Date / Time No Known Allergies Allergy Verified 03/31/24 03:15 Assessment & Plan Assessment & Plan (1) MDD (major depressive disorder), recurrent episode: Status: Acute Code(s): F33.9 - Major depressive disorder, recurrent, unspecified (2) PTSD (post-traumatic stress disorder): Status: Acute Code(s): F43.10 - Post-traumatic stress disorder, unspecified Plan Patient is a 63-year-old male who was brought in by ambulance to [facility] due to suicidal ideation and homicidal ideation secondary to getting into an argument with his roommate. Plan: CV 15 minute safety checks Start: Depakote 250mg PO BID Zyprexa 5mg PO Q4HR PRN Referral to outpatient psychiatric providers Encourage groups Discharge planning 04/01: In bed most of shift. Patient declined to meet today due to feeling tired. Patient stated, I did not sleep well last night so I am just going to catch up on sleep. Can we meet tomorrow . Start: Melatonin 6mg PO bedtime 04/02: Pt continues to report depression and suicidal ideation. Pt stated, I'm still thinking about suicide. I would be more hopeful if I had somewhere safe to go after here . pt denies HI/VH/AH. Labs to be drawn tomorrow. 04/03 pt reports he's depressed and with SI (though not with active plan/intent)...he says he's in a real dark place. Discussed meds and he agrees to changes including increase of depakote -pt was started on Depakote for mood; he remains depressed and grant writer considered increasing Depakote, however dx is MDD. 04/04 Patient says that his mood is a little better. But he says it is because he is stoned on the medications he is on. He says he feels a little drowsy from them too. -will defer medication management to returning provider 04/05: Pt reports feeling down and anxious d/t thinking about the future and not know what will happen. Pt reports suicidal ideation with no plan d/t not having anywhere to go . He feels medications are helping with his mood. denies HI/VH/AH. 04/06:Active on unit. pt reports feeling okay but anxious ; he continues to reports suicidal ideation with no plan. Pt stated, I'm worried I won't get into any where. I've been disappointed before with not getting placement . Pt reports difficulty sleeping. Start: Mirtazapine 7.5mg PO bedtime. denies HI/VH/AH. 04/07: pt reports feeling not great today; patient stated, I'm really missing my best friend today, who was like my brother. I don't have anything anymore . Patient continues to report suicidal ideation with no plan. Patient reports waking up a few times last night. denies HI/VH/AH. Continue current treatment plan. 04/08: pt reports feeling okay today; patient stated, I'm waiting to see if I get to go to the [facility]. It seems like a good place . Patient reports passive suicidal ideation with no plan. he continues to reports waking up a few times last night. denies HI/VH/AH. Increase: Mirtazapine to 15mg PO bedtime 04/09: pt reports feeling okay today. Pt reports he only woke up twice rather than 3 times last night . He reports chronic passive suicidal ideation; pt stated, I have always felt suicidal but I reach out for help before acting on it . denies HI/VH/AH. 04/10: Continue current regimen and plans Reason for continued inpatient stay Substantial Risk for: harm to self, rapid decompensation and med/psych decompensation Time Spent With Patient Time: Total time managing care of this patient today ____ minutes.
[2024-04-11] MEDS: Loratadine 10 MG TABLET PO (09:19)
[2024-04-11 09:32] VITALS: BP 134/64; PULSE 66; RESP 18; TEMP 36.2; O2SAT 96
--- NOTE | 2024-04-11 10:01 | P.PNPSI_ITS ---
Subjective Subjective Date of Service: 04/11/24 Reason For Visit: f32.A Subjective Notes: Conditional Voluntary Interim History: Patient was seen and discussed in rounds today. Records and plans were reviewed. He continues to be mostly in his room and not able to encourage him to attend groups. His hearing impediment is probably a draw back. Continues to have passive SI. He is complaining of allergies and hip pain. Claritin, Aspercreme and a nasal spray ordered. No SI. Review of Systems Review of Systems Allergy symptoms Yes all other systems are reviewed and are negative Mental Status Exam Mental Status Exam Narrative: In today's visit he is alert, oriented and pleasant. Normal speech. Moderate eye contact. Affect is appropriate and constricted. Moderate anxiety present. No signs of psychosis. No AVH. Passive SI. Cognitively is grossly intact. Judgment is intact Diagnostics Vital Signs (24Hr): Vital Signs - 24 hr 04/10/24 20:00 04/11/24 09:32 Temperature 97.7 F 97.2 F Pulse Rate 88 66 Respiratory Rate 16 18 Blood Pressure 166/88 H 134/64 Pulse Oximetry 97 96 Oxygen Delivery Method Room Air Room Air BMI result Body Mass Index 31.1 Labs 04/01/24 08:35 Imaging Radiology Impressions: ITS Impressions Shoulder X-Ray 04/03/24 00:35 IMPRESSION: No acute abnormalities. Electronically signed by: Jigar Benjamin MD 04/03/2024 07:30 AM EDT Medications Medications Current Medications Acetaminophen (Acetaminophen 325 Mg Tablet) 650 mg PO Q6H PRN PRN Reason: Headache/Pain Mild Scale (1-3) Last Admin: 04/11/24 06:27 Dose: 650 mg Al Hydroxide/Mg Hydroxide (Magnesium Hydrox/Alum Hydrox 30 Ml Oral.Susp) 30 ml PO Q6H PRN PRN Reason: Heartburn/Nausea Divalproex Sodium (Divalproex Sodium 250 Mg Tablet.) 250 mg PO BID [facility] Last Admin: 04/11/24 08:34 Dose: 250 mg Famotidine (Famotidine 20 Mg Tablet) 20 mg PO BID [facility] Last Admin: 04/11/24 08:34 Dose: 20 mg Hydroxyzine HCl (Hydroxyzine Hcl 25 Mg Tablet) 25 mg PO Q6H PRN PRN Reason: Anxiety Last Admin: 04/11/24 08:34 Dose: 25 mg Ibuprofen (Ibuprofen 600 Mg Tablet) 600 mg PO Q6H PRN PRN Reason: moderate pain Last Admin: 04/11/24 08:39 Dose: 600 mg Loratadine (Loratadine 10 Mg Tablet) 10 mg PO DAILY [facility] Last Admin: 04/11/24 09:19 Dose: 10 mg Magnesium Hydroxide (Milk Of Magnesia 30 Ml Oral.Susp) 30 ml PO DAILY PRN PRN Reason: Constipation Last Admin: 04/11/24 08:39 Dose: 30 ml Melatonin (Melatonin 3 Mg Tablet) 6 mg PO BEDTIME [facility] Last Admin: 04/10/24 20:07 Dose: 6 mg Mirtazapine (Mirtazapine 15 Mg Tablet) 15 mg PO BEDTIME [facility] Last Admin: 04/10/24 20:07 Dose: 15 mg Nicotine Polacrilex (Nicotine Polacrilex 2 Mg Gum) 2 mg BUCCAL Q2H PRN PRN Reason: Nicotine Cravings Olanzapine (Olanzapine 5 Mg Tablet) 5 mg PO Q4H PRN PRN Reason: AH or agitiation Last Admin: 04/10/24 09:15 Dose: 5 mg Ondansetron HCl (Ondansetron Odt 4 Mg Tab.Rapdis) 4 mg TRANSLINGU Q6H PRN PRN Reason: Nausea and Vomiting Sodium Chloride (Sodium Chloride 0.65 % Nasal 44 Ml Sprbtl) 1 spray NOSTRIL-B Q1H PRN PRN Reason: Shortness of Breath/Wheezing Trazodone HCl (Trazodone Hcl 50 Mg Tablet) 50 mg PO BEDTIME MRX1 PRN PRN Reason: Insomnia Last Admin: 04/09/24 20:42 Dose: 50 mg Trolamine Salicylate (Trolamine Salicylate 10 % Cream 85 Gm Tube) 1 appl TOPICAL BID PRN; Protocol PRN Reason: hip pain Allergies Allergies Allergy/AdvReac Type Severity Reaction Status Date / Time No Known Allergies Allergy Verified 03/31/24 03:15 Assessment & Plan Assessment & Plan (1) MDD (major depressive disorder), recurrent episode: Status: Acute Code(s): F33.9 - Major depressive disorder, recurrent, unspecified (2) PTSD (post-traumatic stress disorder): Status: Acute Code(s): F43.10 - Post-traumatic stress disorder, unspecified Plan Patient is a 63-year-old male who was brought in by ambulance to [facility] ER due to suicidal ideation and homicidal ideation secondary to getting into an argument with his roommate. Plan: CV 15 minute safety checks Start: Depakote 250mg PO BID Zyprexa 5mg PO Q4HR PRN Referral to outpatient psychiatric providers Encourage groups Discharge planning 04/01: In bed most of shift. Patient declined to meet today due to feeling tired. Patient stated, I did not sleep well last night so I am just going to catch up on sleep. Can we meet tomorrow . Start: Melatonin 6mg PO bedtime 04/02: Pt continues to report depression and suicidal ideation. Pt stated, I'm still thinking about suicide. I would be more hopeful if I had somewhere safe to go after here . pt denies HI/VH/AH. Labs to be drawn tomorrow. 04/03 pt reports he's depressed and with SI (though not with active plan/intent)...he says he's in a real dark place. Discussed meds and he agrees to changes including increase of depakote -pt was started on Depakote for mood; he remains depressed and technical proposal writer considered increasing Depakote, however dx is MDD. 04/04 Patient says that his mood is a little better. But he says it is because he is stoned on the medications he is on. He says he feels a little drowsy from them too. -will defer medication management to returning provider 04/05: Pt reports feeling down and anxious d/t thinking about the future and not know what will happen. Pt reports suicidal ideation with no plan d/t not having anywhere to go . He feels medications are helping with his mood. denies HI/VH/AH. 04/06:Active on unit. pt reports feeling okay but anxious ; he continues to reports suicidal ideation with no plan. Pt stated, I'm worried I won't get into any where. I've been disappointed before with not getting placement . Pt reports difficulty sleeping. Start: Mirtazapine 7.5mg PO bedtime. denies HI/VH/AH. 04/07: pt reports feeling not great today; patient stated, I'm really missing my best friend today, who was like my brother. I don't have anything anymore . Patient continues to report suicidal ideation with no plan. Patient reports waking up a few times last night. denies HI/VH/AH. Continue current treatment plan. 04/08: pt reports feeling okay today; patient stated, I'm waiting to see if I get to go to the [facility]. It seems like a good place . Patient reports passive suicidal ideation with no plan. he continues to reports waking up a few times last night. denies HI/VH/AH. Increase: Mirtazapine to 15mg PO bedtime 04/09: pt reports feeling okay today. Pt reports he only woke up twice rather than 3 times last night . He reports chronic passive suicidal ideation; pt stated, I have always felt suicidal but I reach out for help before acting on it . denies HI/VH/AH. 04/10: Continue current regimen and plans 04/11: Continue current regimen and plans. Claritin, Aspercreme/for hips and nasal spray ordered Patient educated on: medication risk/benefits Reason for continued inpatient stay Substantial Risk for: rapid decompensation Time Spent With Patient Time: Total time managing care of this patient today ____ minutes.
[2024-04-11] MEDS: Sodium Chloride 0.65 % Nasal 44 ML SPRBTL 1 SPRAY NOSTRIL-B (14:30)
[2024-04-11 19:58] VITALS: BP 125/65; PULSE 66; RESP 18; TEMP 36.7; O2SAT 98
[2024-04-11] MEDS: Melatonin 3 MG TABLET 6 MG PO (21:45)
[2024-04-11] MEDS: Mirtazapine 15 MG TABLET PO (21:45)
[2024-04-11] MEDS: OLANZapine 5 MG TABLET PO (21:46)
[2024-04-11] MEDS: traZODone HCL 50 MG TABLET PO (21:46)
[2024-04-12 08:08] VITALS: BP 124/65; PULSE 71; RESP 16; TEMP 36.4; O2SAT 95
[2024-04-12] MEDS: Famotidine 20 MG TABLET PO ×2 (08:51→20:30)
[2024-04-12] MEDS: Trolamine Salicylate 10 % Cream 141 gm Tube 1 APPL TOPICAL (08:51)
[2024-04-12] MEDS: Divalproex Sodium 250 MG TABLET.DR PO ×2 (08:51→20:30)
[2024-04-12] MEDS: Loratadine 10 MG TABLET PO (08:51)
--- NOTE | 2024-04-12 09:14 | HO.PSYCHPN ---
Subjective Subjective Date of Service: 04/12/24 Reason For Visit: f32.A Subjective Notes: Conditional Voluntary Interim History: Patient was seen and discussed in rounds today. Records and plans were reviewed. He is isolative and continues to endorse suicidal ideations but no plans or intent and feels safe here. Sleeping was interrupted last night. Atarax continues to be helpful for his anxiety. No side effects or complaints. No changes were made today Review of Systems Review of Systems Yes all other systems are reviewed and are negative Mental Status Exam Mental Status Exam Narrative: In today's visit he is alert, oriented and pleasant. Normal speech. Moderate eye contact. Affect is appropriate and constricted. Moderate anxiety present. No signs of psychosis. No AVH. Passive SI. Cognitively is grossly intact. Judgment is intact Diagnostics Vital Signs (24Hr): Vital Signs - 24 hr 04/11/24 09:32 04/11/24 19:58 04/12/24 08:08 Temperature 97.2 F 98.1 F 97.5 F Pulse Rate 66 66 71 Respiratory Rate 18 18 16 Blood Pressure 134/64 125/65 124/65 Pulse Oximetry 96 98 95 Oxygen Delivery Method Room Air Room Air Room Air BMI result Body Mass Index 31.1 Labs 04/01/24 08:35 Imaging Radiology Impressions: ITS Impressions Shoulder X-Ray 04/03/24 00:35 IMPRESSION: No acute abnormalities. Electronically signed by: Jigar Benjamin MD 04/03/2024 07:30 AM EDT Medications Medications Current Medications Acetaminophen (Acetaminophen 325 Mg Tablet) 650 mg PO Q6H PRN PRN Reason: Headache/Pain Mild Scale (1-3) Last Admin: 04/11/24 06:27 Dose: 650 mg Al Hydroxide/Mg Hydroxide (Magnesium Hydrox/Alum Hydrox 30 Ml Oral.Susp) 30 ml PO Q6H PRN PRN Reason: Heartburn/Nausea Divalproex Sodium (Divalproex Sodium 250 Mg Tablet.) 250 mg PO BID COUNT INCLUDES THE [facility] Last Admin: 04/12/24 08:51 Dose: 250 mg Famotidine (Famotidine 20 Mg Tablet) 20 mg PO BID COUNT INCLUDES THE [facility] Last Admin: 04/12/24 08:51 Dose: 20 mg Hydroxyzine HCl (Hydroxyzine Hcl 25 Mg Tablet) 25 mg PO Q6H PRN PRN Reason: Anxiety Last Admin: 04/11/24 21:46 Dose: 25 mg Ibuprofen (Ibuprofen 600 Mg Tablet) 600 mg PO Q6H PRN PRN Reason: moderate pain Last Admin: 04/11/24 21:45 Dose: 600 mg Loratadine (Loratadine 10 Mg Tablet) 10 mg PO DAILY [facility] Last Admin: 04/12/24 08:51 Dose: 10 mg Magnesium Hydroxide (Milk Of Magnesia 30 Ml Oral.Susp) 30 ml PO DAILY PRN PRN Reason: Constipation Last Admin: 04/11/24 08:39 Dose: 30 ml Melatonin (Melatonin 3 Mg Tablet) 6 mg PO BEDTIME [facility] Last Admin: 04/11/24 21:45 Dose: 6 mg Mirtazapine (Mirtazapine 15 Mg Tablet) 15 mg PO BEDTIME [facility] Last Admin: 04/11/24 21:45 Dose: 15 mg Nicotine Polacrilex (Nicotine Polacrilex 2 Mg Gum) 2 mg BUCCAL Q2H PRN PRN Reason: Nicotine Cravings Olanzapine (Olanzapine 5 Mg Tablet) 5 mg PO Q4H PRN PRN Reason: AH or agitiation Last Admin: 04/11/24 21:46 Dose: 5 mg Ondansetron HCl (Ondansetron Odt 4 Mg Tab.Rapdis) 4 mg TRANSLINGU Q6H PRN PRN Reason: Nausea and Vomiting Sodium Chloride (Sodium Chloride 0.65 % Nasal 44 Ml Sprbtl) 1 spray NOSTRIL-B Q1H PRN PRN Reason: Shortness of Breath/Wheezing Last Admin: 04/11/24 14:30 Dose: 1 spray Trazodone HCl (Trazodone Hcl 50 Mg Tablet) 50 mg PO BEDTIME MRX1 PRN PRN Reason: Insomnia Last Admin: 04/11/24 21:46 Dose: 50 mg Trolamine Salicylate (Trolamine Salicylate 10 % Cream 141 Gm Tube) 1 appl TOPICAL BID PRN; Protocol PRN Reason: hip pain Last Admin: 04/12/24 08:51 Dose: 1 appl Allergies Allergies Allergy/AdvReac Type Severity Reaction Status Date / Time No Known Allergies Allergy Verified 03/31/24 03:15 Assessment & Plan Assessment & Plan (1) MDD (major depressive disorder), recurrent episode: Status: Acute Code(s): F33.9 - Major depressive disorder, recurrent, unspecified (2) PTSD (post-traumatic stress disorder): Status: Acute Code(s): F43.10 - Post-traumatic stress disorder, unspecified Plan Patient is a 63-year-old male who was brought in by ambulance to [facility] ER due to suicidal ideation and homicidal ideation secondary to getting into an argument with his roommate. Plan: CV 15 minute safety checks Start: Depakote 250mg PO BID Zyprexa 5mg PO Q4HR PRN Referral to outpatient psychiatric providers Encourage groups Discharge planning 04/01: In bed most of shift. Patient declined to meet today due to feeling tired. Patient stated, I did not sleep well last night so I am just going to catch up on sleep. Can we meet tomorrow . Start: Melatonin 6mg PO bedtime 04/02: Pt continues to report depression and suicidal ideation. Pt stated, I'm still thinking about suicide. I would be more hopeful if I had somewhere safe to go after here . pt denies HI/VH/AH. Labs to be drawn tomorrow. 04/03 pt reports he's depressed and with SI (though not with active plan/intent)...he says he's in a real dark place. 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 04/04 Patient says that his mood is a little better. But he says it is because he is stoned on the medications he is on. He says he feels a little drowsy from them too. -will defer medication management to returning provider 04/05: Pt reports feeling down and anxious d/t thinking about the future and not know what will happen. Pt reports suicidal ideation with no plan d/t not having anywhere to go . He feels medications are helping with his mood. denies HI/VH/AH. 04/06:Active on unit. pt reports feeling okay but anxious ; he continues to reports suicidal ideation with no plan. Pt stated, I'm worried I won't get into any where. I've been disappointed before with not getting placement . Pt reports difficulty sleeping. Start: Mirtazapine 7.5mg PO bedtime. denies HI/VH/AH. 04/07: pt reports feeling not great today; patient stated, I'm really missing my best friend today, who was like my brother. I don't have anything anymore . Patient continues to report suicidal ideation with no plan. Patient reports waking up a few times last night. denies HI/VH/AH. Continue current treatment plan. 04/08: pt reports feeling okay today; patient stated, I'm waiting to see if I get to go to the [facility] [place]. It seems like a good place . Patient reports passive suicidal ideation with no plan. he continues to reports waking up a few times last night. denies HI/VH/AH. Increase: Mirtazapine to 15mg PO bedtime 04/09: pt reports feeling okay today. Pt reports he only woke up twice rather than 3 times last night . He reports chronic passive suicidal ideation; pt stated, I have always felt suicidal but I reach out for help before acting on it . denies HI/VH/AH. 04/10: Continue current regimen and plans 04/11: Continue current regimen and plans. Claritin, Aspercreme/for hips and nasal spray ordered 04/12: Continue current plans and regimen Reason for continued inpatient stay Substantial Risk for: harm to self and rapid decompensation Time Spent With Patient Time: Total time managing care of this patient today ____ minutes.
[2024-04-12] MEDS: Sodium Chloride 0.65 % Nasal 44 ML SPRBTL 1 SPRAY NOSTRIL-B (16:24)
[2024-04-12 20:00] VITALS: BP 144/91; PULSE 85; RESP 15; TEMP 36.4; O2SAT 98
[2024-04-12] MEDS: Melatonin 3 MG TABLET 6 MG PO (20:30)
[2024-04-12] MEDS: Mirtazapine 15 MG TABLET PO (20:30)
--- NOTE | 2024-04-13 | ECG_ITS ---
Test Reason : chest pain Blood Pressure : / mmHG Vent. Rate : 087 BPM Atrial Rate : 087 BPM P-R Int : 150 ms QRS Dur : 078 ms QT Int : 352 ms P-R-T Axes : 042 045 054 degrees QTc Int : 423 ms Normal sinus rhythm Normal ECG No previous ECGs available Referred By: Sebas Galarza Electronically Signed By:KAREN IGLESIAS
[2024-04-13] MEDS: Ibuprofen 600 MG TABLET PO ×2 (00:55→17:16)
[2024-04-13 08:00] VITALS: BP 148/71; PULSE 81; RESP 17; TEMP 34.7; O2SAT 97
[2024-04-13] MEDS: Acetaminophen 325 MG TABLET 650 MG PO (08:09)
[2024-04-13] MEDS: Divalproex Sodium 250 MG TABLET.DR PO ×2 (09:07→20:33)
[2024-04-13] MEDS: Trolamine Salicylate 10 % Cream 141 gm Tube 1 APPL TOPICAL ×2 (09:08→17:17)
[2024-04-13] MEDS: Loratadine 10 MG TABLET PO (09:08)
[2024-04-13] MEDS: Famotidine 20 MG TABLET PO ×2 (09:08→20:33)
--- NOTE | 2024-04-13 15:24 | P.PNPSI_ITS ---
Subjective Subjective Date of Service: 04/13/24 Reason For Visit: f32.A Subjective Notes: Conditional Voluntary Interim History: Reviewed with Dr. Rios. Active on unit. medication compliant. Per elementary school social worker, [facility] [email or web address]; pt notified. Pt reports he believes medications are not working for sleep ; however per nursing, pt slept 7 hours last night. Pt continues to report passive suicidal ideation with no plan. denies HI/VH/AH. Pt hoping for placement soon. Medication Compliance: Yes Side effects from medications: No Attending Groups: Yes Review of Systems Constitutional: Reports as per HPI Eyes: Reports as per HPI Reports as per HPI Cardiovascular: Reports as per HPI Respiratory: Reports as per HPI Gastrointestinal: Reports as per HPI Genitourinary: Reports as per HPI Musculoskeletal: Reports as per HPI Skin/Breast: Reports as per HPI Reports as per HPI Psychiatric: Reports as per HPI Endocrine: Reports as per HPI Hematologic/Lymphatic: Reports as per HPI Allergic/Immunologic: Reports as per HPI Mental Status Exam Mental Status Exam Narrative: Pt is alert and oriented; behavior is cooperative and calm; dressed in casual attire; mood described as okay ; eye contact appropriate; Speech is normal rate, volume and not pressured; thought process is organized; Thought content is on tx; denies HI/AH/VH. Pt reports chronic passive suicidal ideation with no plan Diagnostics Vital Signs (24Hr): Vital Signs - 24 hr 04/12/24 20:00 04/13/24 08:00 Temperature 97.5 F 94.5 F L Pulse Rate 85 81 Respiratory Rate 15 17 Blood Pressure 144/91 H 148/71 H Pulse Oximetry 98 97 Oxygen Delivery Method Room Air BMI result Body Mass Index 31.1 Labs 04/01/24 08:35 Imaging Radiology Impressions: ITS Impressions Shoulder X-Ray 04/03/24 00:35 IMPRESSION: No acute abnormalities. Electronically signed by: Jigar Benjamin MD 04/03/2024 07:30 AM EDT Medications Medications Current Medications Acetaminophen (Acetaminophen 325 Mg Tablet) 650 mg PO Q6H PRN PRN Reason: Headache/Pain Mild Scale (1-3) Last Admin: 04/13/24 08:09 Dose: 650 mg Al Hydroxide/Mg Hydroxide (Magnesium Hydrox/Alum Hydrox 30 Ml Oral.Susp) 30 ml PO Q6H PRN PRN Reason: Heartburn/Nausea Divalproex Sodium (Divalproex Sodium 250 Mg Tablet.Dr) 250 mg PO BID [facility] Last Admin: 04/13/24 09:07 Dose: 250 mg Famotidine (Famotidine 20 Mg Tablet) 20 mg PO BID [facility] Last Admin: 04/13/24 09:08 Dose: 20 mg Hydroxyzine HCl (Hydroxyzine Hcl 25 Mg Tablet) 25 mg PO Q6H PRN PRN Reason: Anxiety Last Admin: 04/11/24 21:46 Dose: 25 mg Ibuprofen (Ibuprofen 600 Mg Tablet) 600 mg PO Q6H PRN PRN Reason: moderate pain Last Admin: 04/13/24 00:55 Dose: 600 mg Loratadine (Loratadine 10 Mg Tablet) 10 mg PO DAILY [facility] Last Admin: 04/13/24 09:08 Dose: 10 mg Magnesium Hydroxide (Milk Of Magnesia 30 Ml Oral.Susp) 30 ml PO DAILY PRN PRN Reason: Constipation Last Admin: 04/11/24 08:39 Dose: 30 ml Melatonin (Melatonin 3 Mg Tablet) 6 mg PO BEDTIME [facility] Last Admin: 04/12/24 20:30 Dose: 6 mg Mirtazapine (Mirtazapine 15 Mg Tablet) 15 mg PO BEDTIME [facility] Last Admin: 04/12/24 20:30 Dose: 15 mg Nicotine Polacrilex (Nicotine Polacrilex 2 Mg Gum) 2 mg BUCCAL Q2H PRN PRN Reason: Nicotine Cravings Olanzapine (Olanzapine 5 Mg Tablet) 5 mg PO Q4H PRN PRN Reason: AH or agitiation Last Admin: 04/11/24 21:46 Dose: 5 mg Ondansetron HCl (Ondansetron Odt 4 Mg Tab.Rapdis) 4 mg TRANSLINGU Q6H PRN PRN Reason: Nausea and Vomiting Sodium Chloride (Sodium Chloride 0.65 % Nasal 44 Ml Sprbtl) 1 spray NOSTRIL-B Q1H PRN PRN Reason: Shortness of Breath/Wheezing Last Admin: 04/12/24 16:24 Dose: 1 spray Trazodone HCl (Trazodone Hcl 50 Mg Tablet) 50 mg PO BEDTIME MRX1 PRN PRN Reason: Insomnia Last Admin: 04/11/24 21:46 Dose: 50 mg Trolamine Salicylate (Trolamine Salicylate 10 % Cream 141 Gm Tube) 1 appl TOPICAL BID PRN; Protocol PRN Reason: hip pain Last Admin: 04/13/24 09:08 Dose: 1 appl Allergies Allergies Allergy/AdvReac Type Severity Reaction Status Date / Time No Known Allergies Allergy Verified 03/31/24 03:15 Assessment & Plan Assessment & Plan (1) MDD (major depressive disorder), recurrent episode: Status: Acute Code(s): F33.9 - Major depressive disorder, recurrent, unspecified (2) PTSD (post-traumatic stress disorder): Status: Acute Code(s): F43.10 - Post-traumatic stress disorder, unspecified Plan Patient is a 63-year-old male who was brought in by ambulance to [facility] ER due to suicidal ideation and homicidal ideation secondary to getting into an argument with his roommate. Plan: CV 15 minute safety checks Start: Depakote 250mg PO BID Zyprexa 5mg PO Q4HR PRN Referral to outpatient psychiatric providers Encourage groups Discharge planning 04/01: In bed most of shift. Patient declined to meet today due to feeling tired. Patient stated, I did not sleep well last night so I am just going to catch up on sleep. Can we meet tomorrow . Start: Melatonin 6mg PO bedtime 04/02: Pt continues to report depression and suicidal ideation. Pt stated, I'm still thinking about suicide. I would be more hopeful if I had somewhere safe to go after here . pt denies HI/VH/AH. Labs to be drawn tomorrow. 04/03 pt reports he's depressed and with SI (though not with active plan/intent)...he says he's in a real dark place. 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 04/04 Patient says that his mood is a little better. But he says it is because he is stoned on the medications he is on. He says he feels a little drowsy from them too. -will defer medication management to returning provider 04/05: Pt reports feeling down and anxious d/t thinking about the future and not know what will happen. Pt reports suicidal ideation with no plan d/t not having anywhere to go . He feels medications are helping with his mood. denies HI/VH/AH. 04/06:Active on unit. pt reports feeling okay but anxious ; he continues to reports suicidal ideation with no plan. Pt stated, I'm worried I won't get into any where. I've been disappointed before with not getting placement . Pt reports difficulty sleeping. Start: Mirtazapine 7.5mg PO bedtime. denies HI/VH/AH. 04/07: pt reports feeling not great today; patient stated, I'm really missing my best friend today, who was like my brother. I don't have anything anymore . Patient continues to report suicidal ideation with no plan. Patient reports waking up a few times last night. denies HI/VH/AH. Continue current treatment plan. 04/08: pt reports feeling okay today; patient stated, I'm waiting to see if I get to go to the [facility]. It seems like a good place . Patient reports passive suicidal ideation with no plan. he continues to reports waking up a few times last night. denies HI/VH/AH. Increase: Mirtazapine to 15mg PO bedtime 04/09: pt reports feeling okay today. Pt reports he only woke up twice rather than 3 times last night . He reports chronic passive suicidal ideation; pt stated, I have always felt suicidal but I reach out for help before acting on it . denies HI/VH/AH. 04/10: Continue current regimen and plans 04/11: Continue current regimen and plans. Claritin, Aspercreme/for hips and nasal spray ordered 04/12: Continue current plans and regimen 04/13: Active on unit. medication compliant. Per elementary school social worker, pt was declined from [facility]; pt notified. Pt reports he believes medications are not working for sleep ; however per nursing, pt slept 7 hours last night. Pt continues to report passive suicidal ideation with no plan. denies HI/VH/AH. Pt hoping for placement soon. Patient educated on: diagnosis, medication risk/benefits and therapeutic strategies Reason for continued inpatient stay Substantial Risk for: harm to self and med/psych decompensation Time Spent With Patient Time: Total time managing care of this patient today _20___ minutes.
[2024-04-13] MEDS: hydrOXYzine HCL 25 MG TABLET PO (17:17)
[2024-04-13 18:35] VITALS: BP 179/81; PULSE 86; RESP 20; TEMP 36.5; O2SAT 97
--- NOTE | 2024-04-13 18:49 | PM.EVENT ---
Event Note Date of Service: 04/13/24 Event Note: c/o CP, radiating to arm; Hypertensive and tachypneic; ordered stat EKG/Trops/labs and contacted hospitalist; pt then reported dizziness, SOB and rapid response called Time Spent With Patient Time: Total time managing care of this patient today ____ minutes.
[2024-04-13] MEDS: Ondansetron ODT 4 MG TAB.RAPDIS TRANSLINGU (19:01)
[2024-04-13 19:05] LABS: Alanine Aminotransferase 68 U/L (0-40); Albumin Level 3.9 g/dL (3.5-5.0); Alkaline Phosphatase 94 U/L (39-117); Anion Gap 14 (12-20); Aspartate Amino Transferase 51 U/L (5-37); Bilirubin Total 0.3 mg/dL (0.0-1.0); Blood Urea Nitrogen 20 mg/dL (9-16); Calcium 9.6 mg/dL (8.4-10.2); Carbon Dioxide 28 mmol/L (22-29); Chloride 104 mmol/L (96-108); Estimated Glomerular Filt Rate > 60; Glucose Random 113 mg/dL (60-115); Potassium 4.8 mmol/L (3.3-5.1); Sodium 141 mmol/L (135-145); Total Protein 6.5 g/dL (6.5-8.0)
[2024-04-13 19:12] LABS: Troponin-I High Sensitivity < 2.7 ng/L (<3.5-35.0)
[2024-04-13 19:20] VITALS: BP 177/80; PULSE 86; O2SAT 96
[2024-04-13 19:24] VITALS: BP 177/81
[2024-04-13] MEDS: amLODIPine Besylate 5 MG TABLET PO (19:24)
[2024-04-13] MEDS: Aspirin 325 MG TABLET PO (19:32)
--- NOTE | 2024-04-13 19:45 | PC.NURSE ---
Addendum entered by Sara Colon RN 04/13/24 20:00: Pt reported sob in addition to below symptoms Original Note: 1834 pt vitals taken and hypertensive at 181/77, 177/70. Upon further questioning he reported having CP on the left center of chest? described as pressing in nature and constant with radiating to the left arm, nauseated, reported fatigue, and dizziness. orthopedically impaired teacher psych MD Galarza informed and stat EKG and labs ordered/performed. Rapid response called at 184. INTERN up on the unit to evaluate. CRX also performed and examined by a hospitalist. Pt vitals repeated and 177/91, pulse 86, sating 97% on RA, RR 21, pt reporting ?I don?t feel like myself? and pale, nauseated and given zofran with no relief. Medicated with Amlodipine 5 mg po and aspirin 325 mg once at 1931. Pt in kitchen area resting with head down then went to his bed to lay down, checked back in and he reports CP is pressing and constant on left side, rating it >10/10, stating it feels like I broke a rib or something and noted to be slightly diaphoretic.. Troponin back at <2.7, and BUN, AST, ALT elevated.?Nitroglycerin ordered prn CP but unable to administer on this unit as it requires telemetry. TW spoke with nursing precipitator supervisor and will discuss with hospitalist about need for transfer to higher level of care. Report passed onto night RN.
[2024-04-13 20:00] VITALS: BP 158/78; PULSE 92; RESP 18; TEMP 36.4; O2SAT 96
[2024-04-13] MEDS: Mirtazapine 15 MG TABLET PO (20:33)
[2024-04-13] MEDS: Melatonin 3 MG TABLET 6 MG PO (20:33)
--- NOTE | 2024-04-13 21:04 | PC.NURSE ---
3rd trop collected at pt bedside by phleb at this time.
[2024-04-13 21:34] LABS: Troponin-I High Sensitivity < 2.7 ng/L (<3.5-35.0)
--- NOTE | 2024-04-13 21:52 | PM.EVENT ---
Event Note Date of Service: 04/13/24 Event Note: Rapid response was called for 63-year-old male patient on [facility] who was experiencing left-sided nonradiating chest pain. Patient is a rather poor and imprecise historian, but reports he has been experiencing intermittent chest pain since earlier this morning. Unable to further clarify symptoms as either sharp, stabbing, dull, or a pressure. Pain worsens with deep breathing and with movement. States symptoms have occurred intermittently for the past few years, but he does not ?pay much attention to it?. Has not seen a PCP or clinician in many years. Also complains of nausea and lightheadedness. Upon physical examination, patient has tenderness to palpation of anterior and lateral left-sided chest wall. Lungs CTA. Heart RRR. Workup reassuring: EKG x2 showing normal sinus rhythm without ischemic changes. BMP unremarkable and at baseline for patient. No significant electrolyte abnormalities. Serial troponins negative and undetectable. CXR showing mild subsegmental atelectasis in right lower lung, but no consolidation, pneumothorax, or pleural effusion. Given negative initial workup including EKG and troponins, as well as the fact patient's chest pain is reproducible and positional, little concern patient's symptoms are cardiogenic in nature. Will treat symptomatically with ondansetron for nausea and Motrin for pain. Will sign off for now. If patient's symptoms persist and/or worsen, please re-consult and/or consider cardiology consult. Time Spent With Patient Time: Total time managing care of this patient today ____ minutes.
[2024-04-14] MEDS: Ibuprofen 600 MG TABLET PO ×2 (05:14→17:10)
[2024-04-14] MEDS: OLANZapine 5 MG TABLET PO ×2 (06:55→18:38)
[2024-04-14 08:23] VITALS: BP 142/94; PULSE 83; TEMP 36.4; O2SAT 100
[2024-04-14 09:30] VITALS: BP 142/94
[2024-04-14] MEDS: Loratadine 10 MG TABLET PO (09:30)
[2024-04-14] MEDS: Divalproex Sodium 250 MG TABLET.DR PO ×2 (09:30→20:30)
[2024-04-14] MEDS: amLODIPine Besylate 5 MG TABLET PO (09:30)
[2024-04-14] MEDS: Aspirin 81 MG TAB.CHEW PO (09:30)
[2024-04-14] MEDS: Famotidine 20 MG TABLET PO ×2 (09:31→20:30)
--- NOTE | 2024-04-14 16:51 | HO.PSYCHPN ---
Subjective Subjective Date of Service: 04/14/24 Reason For Visit: f32.A Subjective Notes: Conditional Voluntary Healthcare Proxy: No Guardianship: No Medical Problems Affecting Mental Status: No Interim History: Team reports pt attended his first group. Last evening reported chest pain/abdominal pain with rapid response called and negative eval. Slept 7 hours. Pt sleeping today and declined to meet to discuss current needs and plan of care. Tells team he continues with depression/SI and active sx of exacerbated PTSD. Medication Compliance: Yes Side effects from medications: No Attending Groups: Yes Review of Systems Acute medical concerns: No Medical Review of Systems: unchanged Review of Systems Review of Systems Yes Unobtainable due to mental status Mental Status Exam Mental Status Exam Patient Behavior: Asleep Diagnostics Vital Signs (24Hr): Vital Signs - 24 hr 04/13/24 18:35 04/13/24 19:20 04/13/24 19:24 Temperature 97.7 F Pulse Rate 86 86 Respiratory Rate 20 Blood Pressure 179/81 H 177/80 H 177/81 H Pulse Oximetry 97 96 Oxygen Delivery Method Room Air Room Air 04/13/24 20:00 04/14/24 08:23 04/14/24 09:30 Temperature 97.6 F 97.5 F Pulse Rate 92 83 Respiratory Rate 18 Blood Pressure 158/78 H 142/94 H 142/94 H Pulse Oximetry 96 100 Oxygen Delivery Method Room Air Room Air BMI result Body Mass Index 31.1 Labs 04/13/24 18:45 Labs: Laboratory Results - last 48 hr 04/13/24 04/13/24 18:45 21:03 Sodium 141 Potassium 4.8 D Chloride 104 Carbon Dioxide 28 Anion Gap 14 BUN 20 H Creatinine 0.84 Estim Creat Clear Calc 75.0 Estimated GFR > 60 Random Glucose 113 Calcium 9.6 D Total Bilirubin 0.3 AST 51 H ALT 68 H Alkaline Phosphatase 94 Troponin I High Sens < 2.7 < 2.7 Total Protein 6.5 Albumin 3.9 Imaging Radiology Impressions: ITS Impressions Shoulder X-Ray 04/03/24 00:35 IMPRESSION: No acute abnormalities. Electronically signed by: Jigar Benjamin MD 04/03/2024 07:30 AM EDT Chest X-Ray 04/13/24 19:10 IMPRESSION: Asymmetric elevation of the right hemidiaphragm with mild subsegmental atelectasis in the right lower lung. Electronically signed by: Keyanna Olea MD 04/13/2024 08:56 PM EDT RP Medications Medications Current Medications Acetaminophen (Acetaminophen 325 Mg Tablet) 650 mg PO Q6H PRN PRN Reason: Headache/Pain Mild Scale (1-3) Last Admin: 04/13/24 08:09 Dose: 650 mg Al Hydroxide/Mg Hydroxide (Magnesium Hydrox/Alum Hydrox 30 Ml Oral.Susp) 30 ml PO Q6H PRN PRN Reason: Heartburn/Nausea Albuterol Sulfate (Albuterol Sulfate 90 Mcg 8 Gm Inhaler) 2 puff INHALE RQ4H PRN PRN Reason: Shortness of Breath Amlodipine Besylate (Amlodipine Besylate 5 Mg Tablet) 5 mg PO DAILY [facility]; Protocol Last Admin: 04/14/24 09:30 Dose: 5 mg Aspirin (Aspirin 81 Mg Tab.Chew) 81 mg PO DAILY [facility] Last Admin: 04/14/24 09:30 Dose: 81 mg Divalproex Sodium (Divalproex Sodium 250 Mg Tablet.Dr) 250 mg PO BID [facility] Last Admin: 04/14/24 09:30 Dose: 250 mg Famotidine (Famotidine 20 Mg Tablet) 20 mg PO BID [facility] Last Admin: 04/14/24 09:31 Dose: 20 mg Hydroxyzine HCl (Hydroxyzine Hcl 25 Mg Tablet) 25 mg PO Q6H PRN PRN Reason: Anxiety Last Admin: 04/13/24 17:17 Dose: 25 mg Ibuprofen (Ibuprofen 600 Mg Tablet) 600 mg PO Q6H PRN PRN Reason: moderate pain Last Admin: 04/14/24 05:14 Dose: 600 mg Loratadine (Loratadine 10 Mg Tablet) 10 mg PO DAILY [facility] Last Admin: 04/14/24 09:30 Dose: 10 mg Magnesium Hydroxide (Milk Of Magnesia 30 Ml Oral.Susp) 30 ml PO DAILY PRN PRN Reason: Constipation Last Admin: 04/11/24 08:39 Dose: 30 ml Melatonin (Melatonin 3 Mg Tablet) 6 mg PO BEDTIME [facility] Last Admin: 04/13/24 20:33 Dose: 6 mg Mirtazapine (Mirtazapine 15 Mg Tablet) 15 mg PO BEDTIME [facility] Last Admin: 04/13/24 20:33 Dose: 15 mg Nicotine Polacrilex (Nicotine Polacrilex 2 Mg Gum) 2 mg BUCCAL Q2H PRN PRN Reason: Nicotine Cravings Olanzapine (Olanzapine 5 Mg Tablet) 5 mg PO Q4H PRN PRN Reason: AH or agitiation Last Admin: 04/14/24 06:55 Dose: 5 mg Ondansetron HCl (Ondansetron Odt 4 Mg Tab.Rapdis) 4 mg TRANSLINGU Q6H PRN PRN Reason: Nausea and Vomiting Last Admin: 04/13/24 19:01 Dose: 4 mg Sodium Chloride (Sodium Chloride 0.65 % Nasal 44 Ml Sprbtl) 1 spray NOSTRIL-B Q1H PRN PRN Reason: Shortness of Breath/Wheezing Last Admin: 04/12/24 16:24 Dose: 1 spray Trazodone HCl (Trazodone Hcl 50 Mg Tablet) 50 mg PO BEDTIME MRX1 PRN PRN Reason: Insomnia Last Admin: 04/11/24 21:46 Dose: 50 mg Trolamine Salicylate (Trolamine Salicylate 10 % Cream 141 Gm Tube) 1 appl TOPICAL BID PRN; Protocol PRN Reason: hip pain Last Admin: 04/13/24 17:17 Dose: 1 appl Allergies Allergies Allergy/AdvReac Type Severity Reaction Status Date / Time No Known Allergies Allergy Verified 03/31/24 03:15 Assessment & Plan Assessment & Plan (1) MDD (major depressive disorder), recurrent episode: Status: Acute Code(s): F33.9 - Major depressive disorder, recurrent, unspecified (2) PTSD (post-traumatic stress disorder): Status: Acute Code(s): F43.10 - Post-traumatic stress disorder, unspecified Plan Patient is a 63-year-old male who was brought in by ambulance to [facility] due to suicidal ideation and homicidal ideation secondary to getting into an argument with his roommate. Plan: CV 15 minute safety checks Start: Depakote 250mg PO BID Zyprexa 5mg PO Q4HR PRN Referral to outpatient psychiatric providers Encourage groups Discharge planning 04/01: In bed most of shift. Patient declined to meet today due to feeling tired. Patient stated, I did not sleep well last night so I am just going to catch up on sleep. Can we meet tomorrow . Start: Melatonin 6mg PO bedtime 04/02: Pt continues to report depression and suicidal ideation. Pt stated, I'm still thinking about suicide. I would be more hopeful if I had somewhere safe to go after here . pt denies HI/VH/AH. Labs to be drawn tomorrow. 04/03 pt reports he's depressed and with SI (though not with active plan/intent)...he says he's in a real dark place. Discussed meds and he agrees to changes including increase of depakote -pt was started on Depakote for mood; he remains depressed and chief writer considered increasing Depakote, however dx is MDD. 04/04 Patient says that his mood is a little better. But he says it is because he is stoned on the medications he is on. He says he feels a little drowsy from them too. -will defer medication management to returning provider 04/05: Pt reports feeling down and anxious d/t thinking about the future and not know what will happen. Pt reports suicidal ideation with no plan d/t not having anywhere to go . He feels medications are helping with his mood. denies HI/VH/AH. 04/06:Active on unit. pt reports feeling okay but anxious ; he continues to reports suicidal ideation with no plan. Pt stated, I'm worried I won't get into any where. I've been disappointed before with not getting placement . Pt reports difficulty sleeping. Start: Mirtazapine 7.5mg PO bedtime. denies HI/VH/AH. 04/07: pt reports feeling not great today; patient stated, I'm really missing my best friend today, who was like my brother. I don't have anything anymore . Patient continues to report suicidal ideation with no plan. Patient reports waking up a few times last night. denies HI/VH/AH. Continue current treatment plan. 04/08: pt reports feeling okay today; patient stated, I'm waiting to see if I get to go to the [facility]. It seems like a good place . Patient reports passive suicidal ideation with no plan. he continues to reports waking up a few times last night. denies HI/VH/AH. Increase: Mirtazapine to 15mg PO bedtime 04/09: pt reports feeling okay today. Pt reports he only woke up twice rather than 3 times last night . He reports chronic passive suicidal ideation; pt stated, I have always felt suicidal but I reach out for help before acting on it . denies HI/VH/AH. 04/10: Continue current regimen and plans 04/11: Continue current regimen and plans. Claritin, Aspercreme/for hips and nasal spray ordered 04/12: Continue current plans and regimen 04/13: Active on unit. medication compliant. Per social media executive, pt was declined from [facility]; pt notified. Pt reports he believes medications are not working for sleep ; however per nursing, pt slept 7 hours last night. Pt continues to report passive suicidal ideation with no plan. denies HI/VH/AH. Pt hoping for placement soon. 04/14: Continue treatment. Reason for continued inpatient stay Substantial Risk for: rapid decompensation and med/psych decompensation Time Spent With Patient Time: Total time managing care of this patient today ____ minutes.
[2024-04-14] MEDS: Sodium Chloride 0.65 % Nasal 44 ML SPRBTL 1 SPRAY NOSTRIL-B (17:10)
[2024-04-14] MEDS: Acetaminophen 325 MG TABLET 650 MG PO (17:49)
[2024-04-14 20:00] VITALS: BP 136/67; PULSE 80; RESP 16; TEMP 36.4; O2SAT 98
[2024-04-14] MEDS: Melatonin 3 MG TABLET 6 MG PO (20:30)
[2024-04-14] MEDS: Mirtazapine 15 MG TABLET PO (20:30)
[2024-04-15] MEDS: hydrOXYzine HCL 25 MG TABLET PO ×2 (00:44→11:10)
[2024-04-15] MEDS: Ibuprofen 600 MG TABLET PO ×2 (00:44→11:10)
[2024-04-15] MEDS: Acetaminophen 325 MG TABLET 650 MG PO (04:56)
[2024-04-15 07:00] VITALS: BMI 30.1
[2024-04-15 08:24] VITALS: BP 118/59; PULSE 77; RESP 19; TEMP 36.4; O2SAT 93
[2024-04-15] MEDS: Sodium Chloride 0.65 % Nasal 44 ML SPRBTL 1 SPRAY NOSTRIL-B (09:20)
[2024-04-15] MEDS: Trolamine Salicylate 10 % Cream 141 gm Tube 1 APPL TOPICAL (09:20)
[2024-04-15] MEDS: Famotidine 20 MG TABLET PO ×2 (09:21→20:16)
[2024-04-15] MEDS: amLODIPine Besylate 5 MG TABLET PO (09:21)
[2024-04-15] MEDS: Aspirin 81 MG TAB.CHEW PO (09:21)
[2024-04-15] MEDS: Divalproex Sodium 250 MG TABLET.DR PO ×2 (09:21→20:16)
[2024-04-15] MEDS: Loratadine 10 MG TABLET PO (09:21)
[2024-04-15] MEDS: OLANZapine 5 MG TABLET PO ×2 (14:23→20:17)
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
[2024-04-15 18:05] VITALS: BMI 30.1
[2024-04-15 20:00] VITALS: BP 124/56; PULSE 90; TEMP 36.4; O2SAT 97
[2024-04-15] MEDS: Melatonin 3 MG TABLET 6 MG PO (20:17)
[2024-04-15] MEDS: Mirtazapine 15 MG TABLET PO (20:17)
[2024-04-15] MEDS: traZODone HCL 50 MG TABLET PO (20:17)
[2024-04-16] MEDS: Ibuprofen 600 MG TABLET PO ×2 (06:28→16:46)
[2024-04-16 08:53] VITALS: BP 122/62; PULSE 77; TEMP 36.4; O2SAT 96
[2024-04-16] MEDS: Folic Acid 1 MG TABLET PO (08:55)
[2024-04-16] MEDS: Loratadine 10 MG TABLET PO (08:55)
[2024-04-16] MEDS: Divalproex Sodium 250 MG TABLET.DR PO ×2 (08:55→20:54)
[2024-04-16] MEDS: Multivitamin TABLET 1 TAB PO (08:55)
[2024-04-16] MEDS: Famotidine 20 MG TABLET PO ×2 (08:55→20:54)
[2024-04-16] MEDS: Ferrous Sulfate 324 MG TABLET.DR PO (08:55)
[2024-04-16] MEDS: amLODIPine Besylate 5 MG TABLET PO (08:56)
[2024-04-16] MEDS: Aspirin 81 MG TAB.CHEW PO (08:56)
[2024-04-16] MEDS: Sodium Chloride 0.65 % Nasal 44 ML SPRBTL 1 SPRAY NOSTRIL-B ×3 (10:46→20:53)
[2024-04-16] MEDS: OLANZapine 5 MG TABLET PO ×2 (12:54→20:54)
--- NOTE | 2024-04-16 17:04 | P.PNPSI_ITS ---
Subjective Subjective Date of Service: 04/16/24 Reason For Visit: f32.A Subjective Notes: Conditional Voluntary Healthcare Proxy: No Guardianship: No Medical Problems Affecting Mental Status: No Interim History: Discussed CAT scan results. Pt reports Olanzapine helped with sleep and decreased fear last evening, appears more relaxed today. [place] [facility] [place] Medication Compliance: Yes Side effects from medications: No Attending Groups: No Review of Systems Acute medical concerns: No Medical Review of Systems: unchanged Review of Systems Review of Systems Hearing deficit Mental Status Exam Mental Status Exam Patient Appearance: Appropriate Patient Orientation: Person, Place, Time and Situation Level of Consciousness: Alert Patient Behavior: Talkative and Good Eye Contact Mood Description: Depressed Affect Description: Flat Patient Cognition Impaired: No Ability to Follow Directions: Good Speech Pattern: Spontaneous Speech Hallucinations: None Delusions: Paranoid Ideation Perceptual Disturbances: Depersonalization and Derealization Thought Content: positive for Perseveration Depressive Symptoms: Thoughts of /Suicide Judgement: Fair Diagnostics Vital Signs (24Hr): Vital Signs - 24 hr 04/15/24 20:00 04/16/24 08:53 Temperature 97.5 F 97.6 F Pulse Rate 90 77 Blood Pressure 124/56 L 122/62 Pulse Oximetry 97 96 Oxygen Delivery Method Room Air Room Air BMI result Body Mass Index 30.1 Labs 04/13/24 18:45 Imaging Radiology Impressions: ITS Impressions Shoulder X-Ray 04/03/24 00:35 IMPRESSION: No acute abnormalities. Electronically signed by: Jigar Benjamin MD 04/03/2024 07:30 AM EDT RP Chest X-Ray 04/13/24 19:10 IMPRESSION: Asymmetric elevation of the right hemidiaphragm with mild subsegmental atelectasis in the right lower lung. Electronically signed by: Keyanna Olea MD 04/13/2024 08:56 PM EDT RP Head CT 04/15/24 18:47 IMPRESSION: 1. No acute intracranial pathology. 2. Mild chronic microangiopathic ischemic changes. Electronically signed by: Yanci Ramirez MD 04/15/2024 11:23 PM EDT RP Medications Medications Current Medications Acetaminophen (Acetaminophen 325 Mg Tablet) 650 mg PO Q6H PRN PRN Reason: Headache/Pain Mild Scale (1-3) Last Admin: 04/15/24 04:56 Dose: 650 mg Al Hydroxide/Mg Hydroxide (Magnesium Hydrox/Alum Hydrox 30 Ml Oral.Susp) 30 ml PO Q6H PRN PRN Reason: Heartburn/Nausea Albuterol Sulfate (Albuterol Sulfate 90 Mcg 8 Gm Inhaler) 2 puff INHALE RQ4H PRN PRN Reason: Shortness of Breath Amlodipine Besylate (Amlodipine Besylate 5 Mg Tablet) 5 mg PO DAILY [facility]; Protocol Last Admin: 04/16/24 08:56 Dose: 5 mg Aspirin (Aspirin 81 Mg Tab.Chew) 81 mg PO DAILY [facility] Last Admin: 04/16/24 08:56 Dose: 81 mg Divalproex Sodium (Divalproex Sodium 250 Mg Tablet.Dr) 250 mg PO BID [facility] Last Admin: 04/16/24 08:55 Dose: 250 mg Famotidine (Famotidine 20 Mg Tablet) 20 mg PO BID [facility] Last Admin: 04/16/24 08:55 Dose: 20 mg Ferrous Sulfate (Ferrous Sulfate 324 Mg Tablet.) 324 mg PO DAILY [facility] Last Admin: 04/16/24 08:55 Dose: 324 mg Folic Acid (Folic Acid 1 Mg Tablet) 1 mg PO DAILY [facility] Last Admin: 04/16/24 08:55 Dose: 1 mg Hydroxyzine HCl (Hydroxyzine Hcl 25 Mg Tablet) 25 mg PO Q6H PRN PRN Reason: Anxiety Last Admin: 04/15/24 11:10 Dose: 25 mg Ibuprofen (Ibuprofen 600 Mg Tablet) 600 mg PO Q6H PRN PRN Reason: moderate pain Last Admin: 04/16/24 16:46 Dose: 600 mg Loratadine (Loratadine 10 Mg Tablet) 10 mg PO DAILY [facility] Last Admin: 04/16/24 08:55 Dose: 10 mg Magnesium Hydroxide (Milk Of Magnesia 30 Ml Oral.Susp) 30 ml PO DAILY PRN PRN Reason: Constipation Last Admin: 04/11/24 08:39 Dose: 30 ml Melatonin (Melatonin 3 Mg Tablet) 6 mg PO BEDTIME [facility] Last Admin: 04/15/24 20:17 Dose: 6 mg Mirtazapine (Mirtazapine 15 Mg Tablet) 15 mg PO BEDTIME [facility] Last Admin: 04/15/24 20:17 Dose: 15 mg Multivitamins/Vitamin C (Multivitamin Tablet) 1 tab PO DAILY [facility] Last Admin: 04/16/24 08:55 Dose: 1 tab Nicotine Polacrilex (Nicotine Polacrilex 2 Mg Gum) 2 mg BUCCAL Q2H PRN PRN Reason: Nicotine Cravings Olanzapine (Olanzapine 5 Mg Tablet) 5 mg PO Q4H PRN PRN Reason: AH or agitiation Last Admin: 04/16/24 12:54 Dose: 5 mg Olanzapine (Olanzapine 5 Mg Tablet) 5 mg PO BEDTIME [facility] Last Admin: 04/15/24 20:17 Dose: 5 mg Ondansetron HCl (Ondansetron Odt 4 Mg Tab.Rapdis) 4 mg TRANSLINGU Q6H PRN PRN Reason: Nausea and Vomiting Last Admin: 04/13/24 19:01 Dose: 4 mg Sodium Chloride (Sodium Chloride 0.65 % Nasal 44 Ml Sprbtl) 1 spray NOSTRIL-B Q1H PRN PRN Reason: Shortness of Breath/Wheezing Last Admin: 04/16/24 15:21 Dose: 1 spray Trazodone HCl (Trazodone Hcl 50 Mg Tablet) 50 mg PO BEDTIME MRX1 PRN PRN Reason: Insomnia Last Admin: 04/15/24 20:17 Dose: 50 mg Trolamine Salicylate (Trolamine Salicylate 10 % Cream 141 Gm Tube) 1 appl TOPICAL BID PRN; Protocol PRN Reason: hip pain Last Admin: 04/15/24 09:20 Dose: 1 appl Allergies Allergies Allergy/AdvReac Type Severity Reaction Status Date / Time No Known Allergies Allergy Verified 03/31/24 03:15 Assessment & Plan Assessment & Plan (1) MDD (major depressive disorder), recurrent episode: Status: Acute Code(s): F33.9 - Major depressive disorder, recurrent, unspecified (2) PTSD (post-traumatic stress disorder): Status: Acute Code(s): F43.10 - Post-traumatic stress disorder, unspecified Plan Patient is a 63-year-old male who was brought in by ambulance to [facility] ER due to suicidal ideation and homicidal ideation secondary to getting into an argument with his roommate. Plan: CV 15 minute safety checks Start: Depakote 250mg PO BID Zyprexa 5mg PO Q4HR PRN Referral to outpatient psychiatric providers Encourage groups Discharge planning 04/01: In bed most of shift. Patient declined to meet today due to feeling tired. Patient stated, I did not sleep well last night so I am just going to catch up on sleep. Can we meet tomorrow . Start: Melatonin 6mg PO bedtime 04/02: Pt continues to report depression and suicidal ideation. Pt stated, I'm still thinking about suicide. I would be more hopeful if I had somewhere safe to go after here . pt denies HI/VH/AH. Labs to be drawn tomorrow. 04/03 pt reports he's depressed and with SI (though not with active plan/intent)...he says he's in a real dark place. 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 04/04 Patient says that his mood is a little better. But he says it is because he is stoned on the medications he is on. He says he feels a little drowsy from them too. -will defer medication management to returning provider 04/05: Pt reports feeling down and anxious d/t thinking about the future and not know what will happen. Pt reports suicidal ideation with no plan d/t not having anywhere to go . He feels medications are helping with his mood. denies HI/VH/AH. 04/06:Active on unit. pt reports feeling okay but anxious ; he continues to reports suicidal ideation with no plan. Pt stated, I'm worried I won't get into any where. I've been disappointed before with not getting placement . Pt reports difficulty sleeping. Start: Mirtazapine 7.5mg PO bedtime. denies HI/VH/AH. 04/07: pt reports feeling not great today; patient stated, I'm really missing my best friend today, who was like my brother. I don't have anything anymore . Patient continues to report suicidal ideation with no plan. Patient reports waking up a few times last night. denies HI/VH/AH. Continue current treatment plan. 04/08: pt reports feeling okay today; patient stated, I'm waiting to see if I get to go to the [facility]. It seems like a good place . Patient reports passive suicidal ideation with no plan. he continues to reports waking up a few times last night. denies HI/VH/AH. Increase: Mirtazapine to 15mg PO bedtime 04/09: pt reports feeling okay today. Pt reports he only woke up twice rather than 3 times last night . He reports chronic passive suicidal ideation; pt stated, I have always felt suicidal but I reach out for help before acting on it . denies HI/VH/AH. 04/10: Continue current regimen and plans 04/11: Continue current regimen and plans. Claritin, Aspercreme/for hips and nasal spray ordered 04/12: Continue current plans and regimen 04/13: Active on unit. medication compliant. Per social work manager, pt was declined from [facility]; pt notified. Pt reports he believes medications are not working for sleep ; however per nursing, pt slept 7 hours last night. Pt continues to report passive suicidal ideation with no plan. denies HI/VH/AH. Pt hoping for placement soon. 04/14: Continue treatment. 04/15 CAT Head- reports cognitive, hearing changes Olanzapine 5 mg HS- reports increased trigger response with increase in fear Folic Acid 1 mg daily -initial level low Ferrous Sulfate 325 mg daily MVI i tab daily Message left to discuss [place] [facility] [place] 04/16: Continue tx. Reason for continued inpatient stay Substantial Risk for: rapid decompensation and med/psych decompensation Time Spent With Patient Time: Total time managing care of this patient today ____ minutes.
[2024-04-16 20:00] VITALS: BP 132/68; PULSE 81; TEMP 36.6; O2SAT 97
[2024-04-16] MEDS: Mirtazapine 15 MG TABLET PO (20:54)
[2024-04-16] MEDS: Melatonin 3 MG TABLET 6 MG PO (20:54)
[2024-04-16] MEDS: traZODone HCL 50 MG TABLET PO (20:54)
[2024-04-17] MEDS: Ibuprofen 600 MG TABLET PO ×2 (04:49→18:38)
[2024-04-17] MEDS: Sodium Chloride 0.65 % Nasal 44 ML SPRBTL 1 SPRAY NOSTRIL-B ×5 (04:50→20:32)
[2024-04-17 08:48] VITALS: BP 156/81; PULSE 87; TEMP 36.3; O2SAT 98
[2024-04-17] MEDS: Famotidine 20 MG TABLET PO ×2 (08:53→20:32)
[2024-04-17] MEDS: Divalproex Sodium 250 MG TABLET.DR PO ×2 (08:53→20:32)
[2024-04-17] MEDS: Folic Acid 1 MG TABLET PO (08:54)
[2024-04-17] MEDS: Ferrous Sulfate 324 MG TABLET.DR PO (08:54)
[2024-04-17] MEDS: Multivitamin TABLET 1 TAB PO (08:54)
[2024-04-17] MEDS: amLODIPine Besylate 5 MG TABLET PO (08:54)
[2024-04-17] MEDS: Loratadine 10 MG TABLET PO (08:54)
[2024-04-17] MEDS: Aspirin 81 MG TAB.CHEW PO (08:55)
--- NOTE | 2024-04-17 08:56 | HO.PSYCHPN ---
Subjective Subjective Date of Service: 04/17/24 Reason For Visit: f32.A Interim History: Pt reports fair sleep last evening. Continues to report a decrease in anxiety, fear Tolerating med changes without adverse effects. Medication Compliance: Yes Side effects from medications: No Attending Groups: Intermittent Review of Systems Acute medical concerns: No Review of Systems Review of Systems hearing impaired Mental Status Exam Mental Status Exam Patient Appearance: Appropriate Patient Orientation: Person, Place, Time and Situation Level of Consciousness: Alert Patient Behavior: Talkative and Good Eye Contact Mood Description: Depressed Affect Description: Flat Patient Cognition Impaired: No Ability to Follow Directions: Good Speech Pattern: Spontaneous Speech Hallucinations: None Delusions: Paranoid Ideation Perceptual Disturbances: Depersonalization and Derealization Thought Content: positive for Perseveration Depressive Symptoms: Thoughts of /Suicide Judgement: Fair Diagnostics Vital Signs (24Hr): Vital Signs - 24 hr 04/16/24 20:00 04/17/24 08:48 Temperature 97.8 F 97.3 F Pulse Rate 81 87 Blood Pressure 132/68 156/81 H Pulse Oximetry 97 98 Oxygen Delivery Method Room Air Room Air BMI result Body Mass Index 30.1 Labs 04/13/24 18:45 Imaging Radiology Impressions: ITS Impressions Shoulder X-Ray 04/03/24 00:35 IMPRESSION: No acute abnormalities. Electronically signed by: Jigar Benjamin MD 04/03/2024 07:30 AM EDT RP Chest X-Ray 04/13/24 19:10 IMPRESSION: Asymmetric elevation of the right hemidiaphragm with mild subsegmental atelectasis in the right lower lung. Electronically signed by: Keyanna Olea MD 04/13/2024 08:56 PM EDT RP Head CT 04/15/24 18:47 IMPRESSION: 1. No acute intracranial pathology. 2. Mild chronic microangiopathic ischemic changes. Electronically signed by: Yanci Ramirez MD 04/15/2024 11:23 PM EDT RP Medications Medications Current Medications Acetaminophen (Acetaminophen 325 Mg Tablet) 650 mg PO Q6H PRN PRN Reason: Headache/Pain Mild Scale (1-3) Last Admin: 04/15/24 04:56 Dose: 650 mg Al Hydroxide/Mg Hydroxide (Magnesium Hydrox/Alum Hydrox 30 Ml Oral.Susp) 30 ml PO Q6H PRN PRN Reason: Heartburn/Nausea Albuterol Sulfate (Albuterol Sulfate 90 Mcg 8 Gm Inhaler) 2 puff INHALE RQ4H PRN PRN Reason: Shortness of Breath Amlodipine Besylate (Amlodipine Besylate 5 Mg Tablet) 5 mg PO DAILY [facility]; Protocol Last Admin: 04/16/24 08:56 Dose: 5 mg Aspirin (Aspirin 81 Mg Tab.Chew) 81 mg PO DAILY [facility] Last Admin: 04/16/24 08:56 Dose: 81 mg Divalproex Sodium (Divalproex Sodium 250 Mg Tablet.Dr) 250 mg PO BID [facility] Last Admin: 04/16/24 20:54 Dose: 250 mg Famotidine (Famotidine 20 Mg Tablet) 20 mg PO BID [facility] Last Admin: 04/16/24 20:54 Dose: 20 mg Ferrous Sulfate (Ferrous Sulfate 324 Mg Tablet.) 324 mg PO DAILY [facility] Last Admin: 04/16/24 08:55 Dose: 324 mg Folic Acid (Folic Acid 1 Mg Tablet) 1 mg PO DAILY [facility] Last Admin: 04/16/24 08:55 Dose: 1 mg Hydroxyzine HCl (Hydroxyzine Hcl 25 Mg Tablet) 25 mg PO Q6H PRN PRN Reason: Anxiety Last Admin: 04/15/24 11:10 Dose: 25 mg Ibuprofen (Ibuprofen 600 Mg Tablet) 600 mg PO Q6H PRN PRN Reason: moderate pain Last Admin: 04/17/24 04:49 Dose: 600 mg Loratadine (Loratadine 10 Mg Tablet) 10 mg PO DAILY [facility] Last Admin: 04/16/24 08:55 Dose: 10 mg Magnesium Hydroxide (Milk Of Magnesia 30 Ml Oral.Susp) 30 ml PO DAILY PRN PRN Reason: Constipation Last Admin: 04/11/24 08:39 Dose: 30 ml Melatonin (Melatonin 3 Mg Tablet) 6 mg PO BEDTIME [facility] Last Admin: 04/16/24 20:54 Dose: 6 mg Mirtazapine (Mirtazapine 15 Mg Tablet) 15 mg PO BEDTIME [facility] Last Admin: 04/16/24 20:54 Dose: 15 mg Multivitamins/Vitamin C (Multivitamin Tablet) 1 tab PO DAILY [facility] Last Admin: 04/16/24 08:55 Dose: 1 tab Nicotine Polacrilex (Nicotine Polacrilex 2 Mg Gum) 2 mg BUCCAL Q2H PRN PRN Reason: Nicotine Cravings Olanzapine (Olanzapine 5 Mg Tablet) 5 mg PO Q4H PRN PRN Reason: AH or agitiation Last Admin: 04/16/24 12:54 Dose: 5 mg Olanzapine (Olanzapine 5 Mg Tablet) 5 mg PO BEDTIME [facility] Last Admin: 04/16/24 20:54 Dose: 5 mg Ondansetron HCl (Ondansetron Odt 4 Mg Tab.Rapdis) 4 mg TRANSLINGU Q6H PRN PRN Reason: Nausea and Vomiting Last Admin: 04/13/24 19:01 Dose: 4 mg Sodium Chloride (Sodium Chloride 0.65 % Nasal 44 Ml Sprbtl) 1 spray NOSTRIL-B Q1H PRN PRN Reason: Shortness of Breath/Wheezing Last Admin: 04/17/24 04:50 Dose: 1 spray Trazodone HCl (Trazodone Hcl 50 Mg Tablet) 50 mg PO BEDTIME MRX1 PRN PRN Reason: Insomnia Last Admin: 04/16/24 20:54 Dose: 50 mg Trolamine Salicylate (Trolamine Salicylate 10 % Cream 141 Gm Tube) 1 appl TOPICAL BID PRN; Protocol PRN Reason: hip pain Last Admin: 04/15/24 09:20 Dose: 1 appl Allergies Allergies Allergy/AdvReac Type Severity Reaction Status Date / Time No Known Allergies Allergy Verified 03/31/24 03:15 Assessment & Plan Assessment & Plan (1) MDD (major depressive disorder), recurrent episode: Status: Acute Code(s): F33.9 - Major depressive disorder, recurrent, unspecified (2) PTSD (post-traumatic stress disorder): Status: Acute Code(s): F43.10 - Post-traumatic stress disorder, unspecified Plan Patient is a 63-year-old male who was brought in by ambulance to [facility] ER due to suicidal ideation and homicidal ideation secondary to getting into an argument with his roommate. Plan: CV 15 minute safety checks Start: Depakote 250mg PO BID Zyprexa 5mg PO Q4HR PRN Referral to outpatient psychiatric providers Encourage groups Discharge planning 04/01: In bed most of shift. Patient declined to meet today due to feeling tired. Patient stated, I did not sleep well last night so I am just going to catch up on sleep. Can we meet tomorrow . Start: Melatonin 6mg PO bedtime 04/02: Pt continues to report depression and suicidal ideation. Pt stated, I'm still thinking about suicide. I would be more hopeful if I had somewhere safe to go after here . pt denies HI/VH/AH. Labs to be drawn tomorrow. 04/03 pt reports he's depressed and with SI (though not with active plan/intent)...he says he's in a real dark place. 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 04/04 Patient says that his mood is a little better. But he says it is because he is stoned on the medications he is on. He says he feels a little drowsy from them too. -will defer medication management to returning provider 04/05: Pt reports feeling down and anxious d/t thinking about the future and not know what will happen. Pt reports suicidal ideation with no plan d/t not having anywhere to go . He feels medications are helping with his mood. denies HI/VH/AH. 04/06:Active on unit. pt reports feeling okay but anxious ; he continues to reports suicidal ideation with no plan. Pt stated, I'm worried I won't get into any where. I've been disappointed before with not getting placement . Pt reports difficulty sleeping. Start: Mirtazapine 7.5mg PO bedtime. denies HI/VH/AH. 04/07: pt reports feeling not great today; patient stated, I'm really missing my best friend today, who was like my brother. I don't have anything anymore . Patient continues to report suicidal ideation with no plan. Patient reports waking up a few times last night. denies HI/VH/AH. Continue current treatment plan. 04/08: pt reports feeling okay today; patient stated, I'm waiting to see if I get to go to the [facility]. It seems like a good place . Patient reports passive suicidal ideation with no plan. he continues to reports waking up a few times last night. denies HI/VH/AH. Increase: Mirtazapine to 15mg PO bedtime 10/11: pt reports feeling okay today. Pt reports he only woke up twice rather than 3 times last night . He reports chronic passive suicidal ideation; pt stated, I have always felt suicidal but I reach out for help before acting on it . denies HI/VH/AH. 04/10: Continue current regimen and plans 04/11: Continue current regimen and plans. Claritin, Aspercreme/for hips and nasal spray ordered 04/12: Continue current plans and regimen 04/13: Active on unit. medication compliant. Per professor of social work, pt was declined from [facility]; pt notified. Pt reports he believes medications are not working for sleep ; however per nursing, pt slept 7 hours last night. Pt continues to report passive suicidal ideation with no plan. denies HI/VH/AH. Pt hoping for placement soon. 04/14: Continue treatment. 04/15 CAT Head- reports cognitive, hearing changes Olanzapine 5 mg HS- reports increased trigger response with increase in fear Folic Acid 1 mg daily -initial level low Ferrous Sulfate 325 mg daily MVI i tab daily Message left to discuss hearing eval with [facility] [place]. 04/16: Continue tx. 04/27: Continue tx Reason for continued inpatient stay Substantial Risk for: rapid decompensation Time Spent With Patient Time: Total time managing care of this patient today ____ minutes.
[2024-04-17] MEDS: OLANZapine 5 MG TABLET PO ×2 (13:11→20:32)
[2024-04-17] MEDS: Acetaminophen 325 MG TABLET 650 MG PO (15:08)
[2024-04-17 20:00] VITALS: BP 114/88; PULSE 89; TEMP 36.8; O2SAT 96
[2024-04-17] MEDS: traZODone HCL 50 MG TABLET PO (20:32)
[2024-04-17] MEDS: Melatonin 3 MG TABLET 6 MG PO (20:32)
[2024-04-17] MEDS: Mirtazapine 15 MG TABLET PO (20:33)
--- NOTE | 2024-04-17 23:33 | PC.NURSE ---
Patient requested Motrin for c/o generalized pain at 1130 . Will continue to monitor for efficacy.
[2024-04-18] MEDS: Sodium Chloride 0.65 % Nasal 44 ML SPRBTL 1 SPRAY NOSTRIL-B ×2 (07:42→13:03)
[2024-04-18] MEDS: Ibuprofen 600 MG TABLET PO ×3 (07:42→21:19)
[2024-04-18 08:40] VITALS: BP 154/84; PULSE 86; TEMP 36.4; O2SAT 96
--- NOTE | 2024-04-18 09:04 | HO.PSYCHPN ---
Subjective Subjective Date of Service: 04/18/24 Reason For Visit: f32.A Subjective Notes: Conditional Voluntary Interim History: Pt reports two hours of sleep and increase in anxiety. Reports hearing is good and bad believes some of his ability to hear is returning. Reports no change in depressive symptoms. Team reports right ankle rash- will trial cortisone cream prn. Visable and interactive in milieu, with team and peers. Less isolative than when we first met him. Less time in bed during the day. Medication Compliance: Yes Side effects from medications: No Attending Groups: Intermittent Review of Systems Acute medical concerns: No Review of Systems Review of Systems R ankle rash hearing is up and down Mental Status Exam Mental Status Exam Patient Appearance: Appropriate Patient Orientation: Person, Place, Time and Situation Level of Consciousness: Alert Patient Behavior: Talkative and Good Eye Contact Mood Description: Depressed Affect Description: Flat Patient Cognition Impaired: No Ability to Follow Directions: Good Speech Pattern: Spontaneous Speech Hallucinations: None Delusions: Paranoid Ideation Perceptual Disturbances: Depersonalization and Derealization Thought Content: positive for Perseveration Depressive Symptoms: Thoughts of /Suicide Judgement: Fair Diagnostics Vital Signs (24Hr): Vital Signs - 24 hr 04/17/24 20:00 04/18/24 08:40 Temperature 98.2 F 97.5 F Pulse Rate 89 86 Blood Pressure 114/88 154/84 H Pulse Oximetry 96 96 Oxygen Delivery Method Room Air Room Air BMI result Body Mass Index 30.1 Labs 04/13/24 18:45 Imaging Radiology Impressions: ITS Impressions Shoulder X-Ray 04/03/24 00:35 IMPRESSION: No acute abnormalities. Electronically signed by: Jigar Benjamin MD 04/03/2024 07:30 AM EDT RP Chest X-Ray 04/13/24 19:10 IMPRESSION: Asymmetric elevation of the right hemidiaphragm with mild subsegmental atelectasis in the right lower lung. Electronically signed by: Keyanna Olea MD 04/13/2024 08:56 PM EDT RP Head CT 04/15/24 18:47 IMPRESSION: 1. No acute intracranial pathology. 2. Mild chronic microangiopathic ischemic changes. Electronically signed by: Yanci Ramirez MD 04/15/2024 11:23 PM EDT RP Medications Medications Current Medications Acetaminophen (Acetaminophen 325 Mg Tablet) 650 mg PO Q6H PRN PRN Reason: Headache/Pain Mild Scale (1-3) Last Admin: 04/17/24 15:08 Dose: 650 mg Al Hydroxide/Mg Hydroxide (Magnesium Hydrox/Alum Hydrox 30 Ml Oral.Susp) 30 ml PO Q6H PRN PRN Reason: Heartburn/Nausea Albuterol Sulfate (Albuterol Sulfate 90 Mcg 8 Gm Inhaler) 2 puff INHALE RQ4H PRN PRN Reason: Shortness of Breath Amlodipine Besylate (Amlodipine Besylate 5 Mg Tablet) 5 mg PO DAILY [facility]; Protocol Last Admin: 04/17/24 08:54 Dose: 5 mg Aspirin (Aspirin 81 Mg Tab.Chew) 81 mg PO DAILY [facility] Last Admin: 04/17/24 08:55 Dose: 81 mg Divalproex Sodium (Divalproex Sodium 250 Mg Tablet.) 250 mg PO BID [facility] Last Admin: 04/17/24 20:32 Dose: 250 mg Famotidine (Famotidine 20 Mg Tablet) 20 mg PO BID [facility] Last Admin: 04/17/24 20:32 Dose: 20 mg Ferrous Sulfate (Ferrous Sulfate 324 Mg Tablet.) 324 mg PO DAILY [facility] Last Admin: 04/17/24 08:54 Dose: 324 mg Folic Acid (Folic Acid 1 Mg Tablet) 1 mg PO DAILY [facility] Last Admin: 04/17/24 08:54 Dose: 1 mg Hydroxyzine HCl (Hydroxyzine Hcl 25 Mg Tablet) 25 mg PO Q6H PRN PRN Reason: Anxiety Last Admin: 04/15/24 11:10 Dose: 25 mg Ibuprofen (Ibuprofen 600 Mg Tablet) 600 mg PO Q6H PRN PRN Reason: moderate pain Last Admin: 04/18/24 07:42 Dose: 600 mg Loratadine (Loratadine 10 Mg Tablet) 10 mg PO DAILY [facility] Last Admin: 04/17/24 08:54 Dose: 10 mg Magnesium Hydroxide (Milk Of Magnesia 30 Ml Oral.Susp) 30 ml PO DAILY PRN PRN Reason: Constipation Last Admin: 04/11/24 08:39 Dose: 30 ml Melatonin (Melatonin 3 Mg Tablet) 6 mg PO BEDTIME [facility] Last Admin: 04/17/24 20:32 Dose: 6 mg Mirtazapine (Mirtazapine 15 Mg Tablet) 15 mg PO BEDTIME [facility] Last Admin: 04/17/24 20:33 Dose: 15 mg Multivitamins/Vitamin C (Multivitamin Tablet) 1 tab PO DAILY [facility] Last Admin: 04/17/24 08:54 Dose: 1 tab Nicotine Polacrilex (Nicotine Polacrilex 2 Mg Gum) 2 mg BUCCAL Q2H PRN PRN Reason: Nicotine Cravings Olanzapine (Olanzapine 5 Mg Tablet) 5 mg PO Q4H PRN PRN Reason: AH or agitiation Last Admin: 04/17/24 13:11 Dose: 5 mg Olanzapine (Olanzapine 5 Mg Tablet) 5 mg PO BEDTIME [facility] Last Admin: 04/17/24 20:32 Dose: 5 mg Ondansetron HCl (Ondansetron Odt 4 Mg Tab.Rapdis) 4 mg TRANSLINGU Q6H PRN PRN Reason: Nausea and Vomiting Last Admin: 04/13/24 19:01 Dose: 4 mg Sodium Chloride (Sodium Chloride 0.65 % Nasal 44 Ml Sprbtl) 1 spray NOSTRIL-B Q1H PRN PRN Reason: Shortness of Breath/Wheezing Last Admin: 04/18/24 07:42 Dose: 1 spray Trazodone HCl (Trazodone Hcl 50 Mg Tablet) 50 mg PO BEDTIME MRX1 PRN PRN Reason: Insomnia Last Admin: 04/17/24 20:32 Dose: 50 mg Trolamine Salicylate (Trolamine Salicylate 10 % Cream 141 Gm Tube) 1 appl TOPICAL BID PRN; Protocol PRN Reason: hip pain Last Admin: 04/15/24 09:20 Dose: 1 appl Allergies Allergies Allergy/AdvReac Type Severity Reaction Status Date / Time No Known Allergies Allergy Verified 03/31/24 03:15 Assessment & Plan Assessment & Plan (1) MDD (major depressive disorder), recurrent episode: Status: Acute Code(s): F33.9 - Major depressive disorder, recurrent, unspecified (2) PTSD (post-traumatic stress disorder): Status: Acute Code(s): F43.10 - Post-traumatic stress disorder, unspecified Plan Patient is a 63-year-old male who was brought in by ambulance to [facility] ER due to suicidal ideation and homicidal ideation secondary to getting into an argument with his roommate. Plan: CV 15 minute safety checks Start: Depakote 250mg PO BID Zyprexa 5mg PO Q4HR PRN Referral to outpatient psychiatric providers Encourage groups Discharge planning 04/01: In bed most of shift. Patient declined to meet today due to feeling tired. Patient stated, I did not sleep well last night so I am just going to catch up on sleep. Can we meet tomorrow . Start: Melatonin 6mg PO bedtime 04/02: Pt continues to report depression and suicidal ideation. Pt stated, I'm still thinking about suicide. I would be more hopeful if I had somewhere safe to go after here . pt denies HI/VH/AH. Labs to be drawn tomorrow. 04/03 pt reports he's depressed and with SI (though not with active plan/intent)...he says he's in a real dark place. Discussed meds and he agrees to changes including increase of depakote -pt was started on Depakote for mood; he remains depressed and play writer considered increasing Depakote, however dx is MDD. 04/04 Patient says that his mood is a little better. But he says it is because he is stoned on the medications he is on. He says he feels a little drowsy from them too. -will defer medication management to returning provider 04/05: Pt reports feeling down and anxious d/t thinking about the future and not know what will happen. Pt reports suicidal ideation with no plan d/t not having anywhere to go . He feels medications are helping with his mood. denies HI/VH/AH. 04/06:Active on unit. pt reports feeling okay but anxious ; he continues to reports suicidal ideation with no plan. Pt stated, I'm worried I won't get into any where. I've been disappointed before with not getting placement . Pt reports difficulty sleeping. Start: Mirtazapine 7.5mg PO bedtime. denies HI/VH/AH. 04/07: pt reports feeling not great today; patient stated, I'm really missing my best friend today, who was like my brother. I don't have anything anymore . Patient continues to report suicidal ideation with no plan. Patient reports waking up a few times last night. denies HI/VH/AH. Continue current treatment plan. 04/08: pt reports feeling okay today; patient stated, I'm waiting to see if I get to go to the [facility]. It seems like a good place . Patient reports passive suicidal ideation with no plan. he continues to reports waking up a few times last night. denies HI/VH/AH. Increase: Mirtazapine to 15mg PO bedtime 04/09: pt reports feeling okay today. Pt reports he only woke up twice rather than 3 times last night . He reports chronic passive suicidal ideation; pt stated, I have always felt suicidal but I reach out for help before acting on it . denies HI/VH/AH. 04/10: Continue current regimen and plans 04/11: Continue current regimen and plans. Claritin, Aspercreme/for hips and nasal spray ordered 04/12: Continue current plans and regimen 04/13: Active on unit. medication compliant. Per aids social worker, pt was declined from [facility] [employer] [employer]; pt notified. Pt reports he believes medications are not working for sleep ; however per nursing, pt slept 7 hours last night. Pt continues to report passive suicidal ideation with no plan. denies HI/VH/AH. Pt hoping for placement soon. 04/14: Continue treatment. 04/15 CAT Head- reports cognitive, hearing changes Olanzapine 5 mg HS- reports increased trigger response with increase in fear Folic Acid 1 mg daily -initial level low Ferrous Sulfate 325 mg daily MVI i tab daily Message left to discuss hearing eval with [facility]. 04/16: Continue tx. 04/17: Continue tx 04/18: Cortisone Cream prn to R ankle rash Increase Olanzapine to 10 mg HS Increase Mirtazapine to 22.5 mg HS Reason for continued inpatient stay Substantial Risk for: rapid decompensation and med/psych decompensation Time Spent With Patient Time: Total time managing care of this patient today ____ minutes.
[2024-04-18 09:20] VITALS: BP 154/84
[2024-04-18] MEDS: Loratadine 10 MG TABLET PO (09:20)
[2024-04-18] MEDS: amLODIPine Besylate 5 MG TABLET PO (09:20)
[2024-04-18] MEDS: Folic Acid 1 MG TABLET PO (09:20)
[2024-04-18] MEDS: Famotidine 20 MG TABLET PO ×2 (09:20→21:20)
[2024-04-18] MEDS: Ferrous Sulfate 324 MG TABLET.DR PO (09:20)
[2024-04-18] MEDS: Multivitamin TABLET 1 TAB PO (09:20)
[2024-04-18] MEDS: Divalproex Sodium 250 MG TABLET.DR PO ×2 (09:20→21:20)
[2024-04-18] MEDS: Aspirin 81 MG TAB.CHEW PO (09:21)
[2024-04-18] MEDS: OLANZapine 5 MG TABLET PO (13:02)
[2024-04-18 20:00] VITALS: BP 127/71; PULSE 93; TEMP 36.6; O2SAT 98
[2024-04-18] MEDS: Mirtazapine 7.5 MG TABLET 22.5 MG PO (21:21)
[2024-04-18] MEDS: Melatonin 3 MG TABLET 6 MG PO (21:21)
[2024-04-18] MEDS: OLANZapine 10 MG TABLET PO (21:21)
[2024-04-19] MEDS: Ibuprofen 600 MG TABLET PO ×3 (04:55→23:28)
[2024-04-19] MEDS: Famotidine 20 MG TABLET PO (09:09)
[2024-04-19] MEDS: Ferrous Sulfate 324 MG TABLET.DR PO (09:09)
[2024-04-19] MEDS: Multivitamin TABLET 1 TAB PO (09:09)
[2024-04-19] MEDS: Divalproex Sodium 250 MG TABLET.DR PO ×2 (09:09→20:22)
[2024-04-19] MEDS: Folic Acid 1 MG TABLET PO (09:09)
[2024-04-19 09:10] VITALS: BP 124/66
[2024-04-19] MEDS: amLODIPine Besylate 5 MG TABLET PO (09:10)
[2024-04-19] MEDS: Aspirin 81 MG TAB.CHEW PO (09:10)
[2024-04-19] MEDS: Loratadine 10 MG TABLET PO (09:10)
[2024-04-19 10:09] VITALS: BP 124/66; PULSE 80; TEMP 36.6; O2SAT 96
[2024-04-19] MEDS: OLANZapine 5 MG TABLET PO (13:20)
[2024-04-19] MEDS: hydrOXYzine HCL 25 MG TABLET PO (14:10)
[2024-04-19] MEDS: Sodium Chloride 0.65 % Nasal 44 ML SPRBTL 1 SPRAY NOSTRIL-B ×3 (14:49→20:26)
--- NOTE | 2024-04-19 15:16 | P.PNPSI_ITS ---
Subjective Subjective Date of Service: 04/19/24 Reason For Visit: f32.A Subjective Notes: Conditional Voluntary Interim History: Reviewed with Dr. Rios. Pt continues to report feeling depressed. Pt stated, I'm not good because I keep getting rejected from every where . Pt reports he is not attending groups d/t not being able to hear what they are saying . He continues to report suicidal ideation; per nursing staff, pt turning in ripped pieces of fabric that he thought of hurting himself with; placed on 5 minute safety checks. He denies HI/VH/AH. Medication Compliance: Yes Side effects from medications: No Review of Systems Review of Systems R ankle rash hearing is up and down Mental Status Exam Mental Status Exam Narrative: Pt is alert and oriented; behavior is cooperative and calm; dressed in casual attire; mood described as depressed ; eye contact appropriate; Speech is normal rate, volume and not pressured; thought process is organized; Thought content is on tx; denies HI/AH/VH. Pt reports chronic passive suicidal ideation Diagnostics Vital Signs (24Hr): Vital Signs - 24 hr 04/18/24 20:00 04/19/24 09:10 04/19/24 10:09 Temperature 97.9 F 97.9 F Pulse Rate 93 80 Blood Pressure 127/71 124/66 124/66 Pulse Oximetry 98 96 Oxygen Delivery Method Room Air Room Air BMI result Body Mass Index 30.1 Labs 04/13/24 18:45 Imaging Radiology Impressions: ITS Impressions Shoulder X-Ray 04/03/24 00:35 IMPRESSION: No acute abnormalities. Electronically signed by: Jigar Benjamin MD 04/03/2024 07:30 AM EDT RP Chest X-Ray 04/13/24 19:10 IMPRESSION: Asymmetric elevation of the right hemidiaphragm with mild subsegmental atelectasis in the right lower lung. Electronically signed by: Keyanna Olea MD 04/13/2024 08:56 PM EDT RP Head CT 04/15/24 18:47 IMPRESSION: 1. No acute intracranial pathology. 2. Mild chronic microangiopathic ischemic changes. Electronically signed by: Yanci Ramirez MD 04/15/2024 11:23 PM EDT RP Medications Medications Current Medications Acetaminophen (Acetaminophen 325 Mg Tablet) 650 mg PO Q6H PRN PRN Reason: Headache/Pain Mild Scale (1-3) Last Admin: 04/17/24 15:08 Dose: 650 mg Al Hydroxide/Mg Hydroxide (Magnesium Hydrox/Alum Hydrox 30 Ml Oral.Susp) 30 ml PO Q6H PRN PRN Reason: Heartburn/Nausea Albuterol Sulfate (Albuterol Sulfate 90 Mcg 8 Gm Inhaler) 2 puff INHALE RQ4H PRN PRN Reason: Shortness of Breath Amlodipine Besylate (Amlodipine Besylate 5 Mg Tablet) 5 mg PO DAILY [facility]; Protocol Last Admin: 04/19/24 09:10 Dose: 5 mg Aspirin (Aspirin 81 Mg Tab.Chew) 81 mg PO DAILY [facility] Last Admin: 04/19/24 09:10 Dose: 81 mg Divalproex Sodium (Divalproex Sodium 250 Mg Tablet.) 250 mg PO BID [facility] Last Admin: 04/19/24 09:09 Dose: 250 mg Famotidine (Famotidine 20 Mg Tablet) 20 mg PO BID [facility] Last Admin: 04/19/24 09:09 Dose: 20 mg Ferrous Sulfate (Ferrous Sulfate 324 Mg Tablet.) 324 mg PO DAILY [facility] Last Admin: 04/19/24 09:09 Dose: 324 mg Folic Acid (Folic Acid 1 Mg Tablet) 1 mg PO DAILY [facility] Last Admin: 04/19/24 09:09 Dose: 1 mg Hydrocortisone (Hydrocortisone 1 % Cream 28.35 Gm Tube) 1 appl TOPICAL BID PRN; Protocol PRN Reason: ankle rash Hydroxyzine HCl (Hydroxyzine Hcl 25 Mg Tablet) 25 mg PO Q6H PRN PRN Reason: Anxiety Last Admin: 04/19/24 14:10 Dose: 25 mg Ibuprofen (Ibuprofen 600 Mg Tablet) 600 mg PO Q6H PRN PRN Reason: moderate pain Last Admin: 04/19/24 04:55 Dose: 600 mg Loratadine (Loratadine 10 Mg Tablet) 10 mg PO DAILY [facility] Last Admin: 04/19/24 09:10 Dose: 10 mg Magnesium Hydroxide (Milk Of Magnesia 30 Ml Oral.Susp) 30 ml PO DAILY PRN PRN Reason: Constipation Last Admin: 04/11/24 08:39 Dose: 30 ml Melatonin (Melatonin 3 Mg Tablet) 6 mg PO BEDTIME [facility] Last Admin: 04/18/24 21:21 Dose: 6 mg Mirtazapine (Mirtazapine 7.5 Mg Tablet) 22.5 mg PO BEDTIME [facility] Last Admin: 04/18/24 21:21 Dose: 22.5 mg Multivitamins/Vitamin C (Multivitamin Tablet) 1 tab PO DAILY [facility] Last Admin: 04/19/24 09:09 Dose: 1 tab Nicotine Polacrilex (Nicotine Polacrilex 2 Mg Gum) 2 mg BUCCAL Q2H PRN PRN Reason: Nicotine Cravings Olanzapine (Olanzapine 5 Mg Tablet) 5 mg PO Q4H PRN PRN Reason: AH or agitiation Last Admin: 04/19/24 13:20 Dose: 5 mg Olanzapine (Olanzapine 10 Mg Tablet) 10 mg PO BEDTIME [facility] Last Admin: 04/18/24 21:21 Dose: 10 mg Ondansetron HCl (Ondansetron Odt 4 Mg Tab.Rapdis) 4 mg TRANSLINGU Q6H PRN PRN Reason: Nausea and Vomiting Last Admin: 04/13/24 19:01 Dose: 4 mg Sodium Chloride (Sodium Chloride 0.65 % Nasal 44 Ml Sprbtl) 1 spray NOSTRIL-B Q1H PRN PRN Reason: Shortness of Breath/Wheezing Last Admin: 04/19/24 14:49 Dose: 1 spray Trazodone HCl (Trazodone Hcl 50 Mg Tablet) 50 mg PO BEDTIME MRX1 PRN PRN Reason: Insomnia Last Admin: 04/17/24 20:32 Dose: 50 mg Trolamine Salicylate (Trolamine Salicylate 10 % Cream 141 Gm Tube) 1 appl TOPICAL BID PRN; Protocol PRN Reason: hip pain Last Admin: 04/15/24 09:20 Dose: 1 appl Allergies Allergies Allergy/AdvReac Type Severity Reaction Status Date / Time No Known Allergies Allergy Verified 03/31/24 03:15 Assessment & Plan Assessment & Plan (1) MDD (major depressive disorder), recurrent episode: Status: Acute Code(s): F33.9 - Major depressive disorder, recurrent, unspecified (2) PTSD (post-traumatic stress disorder): Status: Acute Code(s): F43.10 - Post-traumatic stress disorder, unspecified Plan Patient is a 63-year-old male who was brought in by ambulance to [facility] due to suicidal ideation and homicidal ideation secondary to getting into an argument with his roommate. Plan: CV 15 minute safety checks Start: Depakote 250mg PO BID Zyprexa 5mg PO Q4HR PRN Referral to outpatient psychiatric providers Encourage groups Discharge planning 04/01: In bed most of shift. Patient declined to meet today due to feeling tired. Patient stated, I did not sleep well last night so I am just going to catch up on sleep. Can we meet tomorrow . Start: Melatonin 6mg PO bedtime 04/02: Pt continues to report depression and suicidal ideation. Pt stated, I'm still thinking about suicide. I would be more hopeful if I had somewhere safe to go after here . pt denies HI/VH/AH. Labs to be drawn tomorrow. 04/03 pt reports he's depressed and with SI (though not with active plan/intent)...he says he's in a real dark place. Discussed meds and he agrees to changes including increase of depakote -pt was started on Depakote for mood; he remains depressed and teletypewriter installer considered increasing Depakote, however dx is MDD. 04/04 Patient says that his mood is a little better. But he says it is because he is stoned on the medications he is on. He says he feels a little drowsy from them too. -will defer medication management to returning provider 04/05: Pt reports feeling down and anxious d/t thinking about the future and not know what will happen. Pt reports suicidal ideation with no plan d/t not having anywhere to go . He feels medications are helping with his mood. denies HI/VH/AH. 04/06:Active on unit. pt reports feeling okay but anxious ; he continues to reports suicidal ideation with no plan. Pt stated, I'm worried I won't get into any where. I've been disappointed before with not getting placement . Pt reports difficulty sleeping. Start: Mirtazapine 7.5mg PO bedtime. denies HI/VH/AH. 04/07: pt reports feeling not great today; patient stated, I'm really missing my best friend today, who was like my brother. I don't have anything anymore . Patient continues to report suicidal ideation with no plan. Patient reports waking up a few times last night. denies HI/VH/AH. Continue current treatment plan. 04/08: pt reports feeling okay today; patient stated, I'm waiting to see if I get to go to the [email or web address]. It seems like a good place . Patient reports passive suicidal ideation with no plan. he continues to reports waking up a few times last night. denies HI/VH/AH. Increase: Mirtazapine to 15mg PO bedtime 04/09: pt reports feeling okay today. Pt reports he only woke up twice rather than 3 times last night . He reports chronic passive suicidal ideation; pt stated, I have always felt suicidal but I reach out for help before acting on it . denies HI/VH/AH. 04/10: Continue current regimen and plans 04/11: Continue current regimen and plans. Claritin, Aspercreme/for hips and nasal spray ordered 04/12: Continue current plans and regimen 04/13: Active on unit. medication compliant. Per social secretary, pt was declined from [facility]; pt notified. Pt reports he believes medications are not working for sleep ; however per nursing, pt slept 7 hours last night. Pt continues to report passive suicidal ideation with no plan. denies HI/VH/AH. Pt hoping for placement soon. 04/14: Continue treatment. 04/15 CAT Head- reports cognitive, hearing changes Olanzapine 5 mg HS- reports increased trigger response with increase in fear Folic Acid 1 mg daily -initial level low Ferrous Sulfate 325 mg daily MVI i tab daily Message left to discuss hearing eval [place] [facility]. 04/16: Continue tx. 04/17: Continue tx 04/18: Cortisone Cream prn to R ankle rash Increase Olanzapine to 10 mg HS Increase Mirtazapine to 22.5 mg HS 04/19: Pt continues to report feeling depressed. Pt stated, I'm not good because I keep getting rejected from every where . Pt reports he is not attending groups d/t not being able to hear what they are saying . He continues to report suicidal ideation; per nursing staff, pt turning in ripped pieces of fabric that he thought of hurting himself with; placed on 5 minute safety checks. He denies HI/VH/AH. Patient educated on: diagnosis and medication risk/benefits Reason for continued inpatient stay Substantial Risk for: harm to self and med/psych decompensation Time Spent With Patient Time: Total time managing care of this patient today _20___ minutes.
[2024-04-19] MEDS: Magnesium Hydrox/Alum Hydrox 30 ML ORAL.SUSP PO (15:35)
--- NOTE | 2024-04-19 17:47 | PC.NURSE ---
Pt. approached this entry writer at 1:20pm to request a PRN for anxiety. I commented that he looked very sad, to which he responded, I will be okay. At approximately 2:05 the patient handed in a noose that he made from ripping up a sheet to an [facility]. This entry writer was informed of this via tiger text by the charge nurse at 2:10pm (I had been at lunch). He was placed on 5 minute checks and I immediately went to his room to check in. Kai said he had, Just tried to commit suicide. When I asked him to tell me what he was feeling and what preceded this, he said that the only person who ever loved him was his mother, he was alone in the world and he was going to be discharged to the streets and would rather . He did calm with contact and agreed to not act on his impulses but does continue to endorse suicidal thoughts.
[2024-04-19 19:44] VITALS: BP 111/68; PULSE 89; TEMP 36.4; O2SAT 95
[2024-04-19] MEDS: Melatonin 3 MG TABLET 6 MG PO (20:22)
[2024-04-19] MEDS: Mirtazapine 7.5 MG TABLET 22.5 MG PO (20:22)
[2024-04-19] MEDS: traZODone HCL 50 MG TABLET PO ×2 (20:22→23:28)
[2024-04-19] MEDS: OLANZapine 10 MG TABLET PO (20:22)
[2024-04-20 08:56] VITALS: BP 111/69; PULSE 77; RESP 16; TEMP 36.4; O2SAT 97
[2024-04-20] MEDS: Divalproex Sodium 250 MG TABLET.DR PO ×2 (08:57→20:52)
[2024-04-20] MEDS: Ferrous Sulfate 324 MG TABLET.DR PO (08:57)
[2024-04-20] MEDS: Loratadine 10 MG TABLET PO (08:57)
[2024-04-20] MEDS: Folic Acid 1 MG TABLET PO (08:57)
[2024-04-20] MEDS: amLODIPine Besylate 5 MG TABLET PO (08:57)
[2024-04-20] MEDS: Famotidine 20 MG TABLET PO ×2 (08:57→20:52)
[2024-04-20] MEDS: Multivitamin TABLET 1 TAB PO (08:57)
[2024-04-20] MEDS: Aspirin 81 MG TAB.CHEW PO (08:57)
[2024-04-20] MEDS: Sodium Chloride 0.65 % Nasal 44 ML SPRBTL 1 SPRAY NOSTRIL-B ×4 (09:17→19:08)
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
[2024-04-20] MEDS: OLANZapine 5 MG TABLET PO (12:51)
[2024-04-20] MEDS: Trolamine Salicylate 10 % Cream 141 gm Tube 1 APPL TOPICAL (15:43)
[2024-04-20 20:00] VITALS: BP 141/75; PULSE 91; TEMP 36.4; O2SAT 97
[2024-04-20] MEDS: Ibuprofen 600 MG TABLET PO (20:51)
[2024-04-20] MEDS: Melatonin 3 MG TABLET 6 MG PO (20:52)
[2024-04-20] MEDS: traZODone HCL 50 MG TABLET PO (20:52)
[2024-04-20] MEDS: QUEtiapine Fumarate 25 MG TABLET 75 MG PO (20:52)
[2024-04-21] MEDS: Ibuprofen 600 MG TABLET PO ×2 (06:36→15:54)
[2024-04-21 08:31] VITALS: BP 112/61; PULSE 76; RESP 16; TEMP 36.4; O2SAT 96
[2024-04-21] MEDS: amLODIPine Besylate 5 MG TABLET PO (08:43)
[2024-04-21] MEDS: Divalproex Sodium 250 MG TABLET.DR PO ×2 (08:44→21:57)
[2024-04-21] MEDS: Aspirin 81 MG TAB.CHEW PO (08:44)
[2024-04-21] MEDS: Sertraline HCL 25 MG TABLET PO (08:44)
[2024-04-21] MEDS: Sodium Chloride 0.65 % Nasal 44 ML SPRBTL 1 SPRAY NOSTRIL-B ×2 (08:45→15:56)
[2024-04-21] MEDS: Loratadine 10 MG TABLET PO (08:45)
[2024-04-21] MEDS: Multivitamin TABLET 1 TAB PO (08:45)
[2024-04-21] MEDS: Ferrous Sulfate 324 MG TABLET.DR PO (08:45)
[2024-04-21] MEDS: Famotidine 20 MG TABLET PO ×2 (08:45→21:57)
[2024-04-21] MEDS: Folic Acid 1 MG TABLET PO (08:45)
[2024-04-21 10:30] VITALS: BP 148/75; PULSE 68; RESP 14; TEMP 36.7; O2SAT 98
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
[2024-04-21 10:36] LABS: Glucose, Whole Blood 131 mg/dL (60-115)
--- NOTE | 2024-04-21 11:45 | PC.NURSE ---
pt was found laying in doorway to room. Pt reports slipping on water in the bathroom and crawling to doorway to seek help. rapid response called. Pt taken to xray and CT scan. reports pending. Pt is back on the unit, currently in Group room A with staff, on a stretcher w/ cervical collar. MD Spicer contacted via tiger text to see if pt can return to bed. awaiting orders
[2024-04-21] MEDS: Acetaminophen 325 MG TABLET 650 MG PO ×2 (12:01→21:57)
--- NOTE | 2024-04-21 13:11 | PC.NURSE ---
Pt removed c collar and left bed despite education regarding pending hip xray. MD Spicer notified via tiger text.
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
[2024-04-21 20:00] VITALS: BP 128/96; PULSE 100; RESP 16; TEMP 36.8; O2SAT 97
[2024-04-21] MEDS: QUEtiapine Fumarate 25 MG TABLET 75 MG PO (21:57)
[2024-04-21] MEDS: Melatonin 3 MG TABLET 6 MG PO (21:57)
[2024-04-21] MEDS: traZODone HCL 50 MG TABLET PO (21:57)
[2024-04-22] MEDS: Ibuprofen 600 MG TABLET PO (06:16)
[2024-04-22] MEDS: hydrOXYzine HCL 25 MG TABLET PO ×2 (06:18→21:04)
[2024-04-22 08:04] VITALS: BP 125/71; PULSE 78; TEMP 36.3; O2SAT 94
[2024-04-22] MEDS: Sertraline HCL 25 MG TABLET PO (09:02)
[2024-04-22] MEDS: Famotidine 20 MG TABLET PO ×2 (09:02→21:03)
[2024-04-22] MEDS: Multivitamin TABLET 1 TAB PO (09:02)
[2024-04-22] MEDS: Divalproex Sodium 250 MG TABLET.DR PO ×2 (09:02→21:03)
[2024-04-22] MEDS: Ferrous Sulfate 324 MG TABLET.DR PO (09:03)
[2024-04-22] MEDS: Loratadine 10 MG TABLET PO (09:03)
[2024-04-22] MEDS: Folic Acid 1 MG TABLET PO (09:03)
[2024-04-22] MEDS: amLODIPine Besylate 5 MG TABLET PO (09:04)
[2024-04-22] MEDS: Aspirin 81 MG TAB.CHEW PO (09:04)
[2024-04-22] MEDS: Sodium Chloride 0.65 % Nasal 44 ML SPRBTL 1 SPRAY NOSTRIL-B ×2 (09:44→11:45)
[2024-04-22 10:32] VITALS: BMI 30.7
[2024-04-22] MEDS: OLANZapine 5 MG TABLET PO ×2 (11:44→21:03)
[2024-04-22] MEDS: Acetaminophen 325 MG TABLET 650 MG PO (13:51)
[2024-04-22 14:00] VITALS: BP 132/87; PULSE 85
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
[2024-04-22 19:44] VITALS: BP 123/60; PULSE 88; RESP 18; TEMP 36.6; O2SAT 95
[2024-04-22] MEDS: traZODone HCL 50 MG TABLET PO (21:03)
[2024-04-22] MEDS: QUEtiapine Fumarate 25 MG TABLET 75 MG PO (21:03)
[2024-04-22] MEDS: Melatonin 3 MG TABLET 6 MG PO (21:03)
[2024-04-23] MEDS: Ibuprofen 600 MG TABLET PO (03:50)
[2024-04-23 08:46] VITALS: BP 119/72; PULSE 104; TEMP 36.8; O2SAT 96
[2024-04-23] MEDS: Divalproex Sodium 250 MG TABLET.DR PO ×2 (08:46→20:31)
[2024-04-23] MEDS: Multivitamin TABLET 1 TAB PO (08:46)
[2024-04-23] MEDS: Folic Acid 1 MG TABLET PO (08:46)
[2024-04-23] MEDS: amLODIPine Besylate 5 MG TABLET PO (08:46)
[2024-04-23] MEDS: Aspirin 81 MG TAB.CHEW PO (08:46)
[2024-04-23] MEDS: Loratadine 10 MG TABLET PO (08:46)
[2024-04-23] MEDS: Sertraline HCL 25 MG TABLET PO (08:46)
[2024-04-23] MEDS: Famotidine 20 MG TABLET PO ×2 (08:46→20:31)
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
[2024-04-23] MEDS: hydrOXYzine HCL 25 MG TABLET PO ×2 (10:34→20:42)
[2024-04-23] MEDS: Sodium Chloride 0.65 % Nasal 44 ML SPRBTL 1 SPRAY NOSTRIL-B (14:11)
[2024-04-23] MEDS: OLANZapine 5 MG TABLET PO (14:13)
[2024-04-23] MEDS: Acetaminophen 325 MG TABLET 650 MG PO (16:26)
[2024-04-23 20:00] VITALS: BP 149/78; PULSE 78; RESP 15; TEMP 36.8; O2SAT 96
[2024-04-23] MEDS: QUEtiapine Fumarate 25 MG TABLET 75 MG PO (20:30)
[2024-04-23] MEDS: Melatonin 3 MG TABLET 6 MG PO (20:31)
[2024-04-23] MEDS: traZODone HCL 50 MG TABLET PO (20:42)
[2024-04-24] MEDS: Ibuprofen 600 MG TABLET PO ×3 (02:13→21:14)
[2024-04-24] MEDS: Sodium Chloride 0.65 % Nasal 44 ML SPRBTL 1 SPRAY NOSTRIL-B ×3 (05:35→16:45)
[2024-04-24 06:38] VITALS: BP 131/68; BP 156/77; PULSE 71; PULSE 80; O2SAT 95
[2024-04-24 06:40] VITALS: BP 156/77; PULSE 80
[2024-04-24 08:19] VITALS: BP 127/78; PULSE 82; RESP 16; TEMP 36.4; O2SAT 95
[2024-04-24] MEDS: Sertraline HCL 25 MG TABLET PO (09:23)
[2024-04-24] MEDS: Aspirin 81 MG TAB.CHEW PO (09:23)
[2024-04-24] MEDS: Loratadine 10 MG TABLET PO (09:24)
[2024-04-24] MEDS: Famotidine 20 MG TABLET PO ×2 (09:24→21:09)
[2024-04-24] MEDS: amLODIPine Besylate 5 MG TABLET PO (09:24)
[2024-04-24] MEDS: Folic Acid 1 MG TABLET PO (09:24)
[2024-04-24] MEDS: Multivitamin TABLET 1 TAB PO (09:24)
[2024-04-24] MEDS: Divalproex Sodium 250 MG TABLET.DR PO ×2 (09:24→21:08)
[2024-04-24] MEDS: hydrOXYzine HCL 25 MG TABLET PO ×2 (10:52→21:08)
--- NOTE | 2024-04-24 11:03 | P.PNPSI_ITS ---
Subjective Subjective Date of Service: 04/24/24 Reason For Visit: f32.A Interim History: Met with pt. He reports poor sleep last night. Mood OK I guess. Denies SI. Continues to utilize the walker. He is more optimistic about potential of going to [facility]. Review of Systems Review of Systems R ankle rash hearing is up and down Yes all other systems are reviewed and are negative and Unobtainable due to mental status Constitutional: Reports as per HPI Eyes: Reports as per HPI Reports as per HPI Cardiovascular: Reports as per HPI Respiratory: Reports as per HPI Gastrointestinal: Reports as per HPI Genitourinary: Reports as per HPI Musculoskeletal: Reports as per HPI Skin/Breast: Reports as per HPI Reports as per HPI Psychiatric: Reports as per HPI Endocrine: Reports as per HPI Hematologic/Lymphatic: Reports as per HPI Allergic/Immunologic: Reports as per HPI Mental Status Exam Mental Status Exam Narrative: Pt is alert and oriented; behavior is cooperative and calm; dressed in casual attire; mood described as depressed ; eye contact appropriate; Speech is normal rate, volume and not pressured; thought process is organized; Thought content is on tx; denies HI/AH/VH. Pt reports chronic passive suicidal ideation Patient Appearance: Appropriate Patient Orientation: Person, Place, Time and Situation Level of Consciousness: Alert Patient Behavior: Talkative and Good Eye Contact Mood Description: Appropriate Affect Description: Appropriate Patient Cognition Impaired: No Ability to Follow Directions: Good Speech Pattern: Spontaneous Speech Diagnostics Vital Signs (24Hr): Vital Signs - 24 hr 04/23/24 20:00 04/24/24 06:38 04/24/24 06:38 Temperature 98.2 F Pulse Rate 78 71 80 Respiratory Rate 15 Blood Pressure 149/78 H 131/68 156/77 H Pulse Oximetry 96 95 Oxygen Delivery Method 04/24/24 06:40 04/24/24 08:19 Temperature 97.6 F Pulse Rate 80 82 Respiratory Rate 16 Blood Pressure 156/77 H 127/78 Pulse Oximetry 95 Oxygen Delivery Method Room Air BMI result Body Mass Index 30.7 Labs 04/13/24 18:45 Imaging Radiology Impressions: ITS Impressions Shoulder X-Ray 04/03/24 00:35 IMPRESSION: No acute abnormalities. Electronically signed by: Jigar Benjamin MD 04/03/2024 07:30 AM EDT RP Chest X-Ray 04/13/24 19:10 IMPRESSION: Asymmetric elevation of the right hemidiaphragm with mild subsegmental atelectasis in the right lower lung. Electronically signed by: Keyanna Olea MD 04/13/2024 08:56 PM EDT RP Head CT 04/15/24 18:47 IMPRESSION: 1. No acute intracranial pathology. 2. Mild chronic microangiopathic ischemic changes. Electronically signed by: Yanci Ramirez MD 04/15/2024 11:23 PM EDT RP Cervical Spine CT 04/21/24 10:45 IMPRESSION: Multilevel spondylosis without acute fracture or trauma-related listhesis. Thyroglossal duct cyst, infrahyoid. . Electronically signed by: Florencio Carrillo MD 04/21/2024 12:02 PM EDT RP Head CT 04/21/24 10:45 IMPRESSION: No acute fracture, bony calvarium. No acute intracranial hemorrhage. Small vessel occlusive disease. Superimposed acute stroke/nonhemorrhagic ischemia cannot be excluded. Polypoid paranasal sinus disease. Blood products versus fungal infection, paranasal sinuses. Electronically signed by: Florencio Carrillo MD 04/21/2024 11:35 AM EDT RP Hip X-Ray 04/21/24 10:50 IMPRESSION: No acute fracture seen. Slight superior left hip joint space narrowing. Electronically signed by: Rocco Vila MD 04/21/2024 04:18 PM EDT RP Medications Medications Current Medications Acetaminophen (Acetaminophen 325 Mg Tablet) 650 mg PO Q6H PRN PRN Reason: Headache/Pain Mild Scale (1-3) Last Admin: 04/23/24 16:26 Dose: 650 mg Al Hydroxide/Mg Hydroxide (Magnesium Hydrox/Alum Hydrox 30 Ml Oral.Susp) 30 ml PO Q6H PRN PRN Reason: Heartburn/Nausea Last Admin: 04/19/24 15:35 Dose: 30 ml Albuterol Sulfate (Albuterol Sulfate 90 Mcg 8 Gm Inhaler) 2 puff INHALE RQ4H PRN PRN Reason: Shortness of Breath Amlodipine Besylate (Amlodipine Besylate 5 Mg Tablet) 5 mg PO DAILY CASSI; Protocol Last Admin: 04/24/24 09:24 Dose: 5 mg Aspirin (Aspirin 81 Mg Tab.Chew) 81 mg PO DAILY [facility] Last Admin: 04/24/24 09:23 Dose: 81 mg Divalproex Sodium (Divalproex Sodium 250 Mg Tablet.Dr) 250 mg PO BID [facility] Last Admin: 04/24/24 09:24 Dose: 250 mg Famotidine (Famotidine 20 Mg Tablet) 20 mg PO BID [facility] Last Admin: 04/24/24 09:24 Dose: 20 mg Folic Acid (Folic Acid 1 Mg Tablet) 1 mg PO DAILY [facility] Last Admin: 04/24/24 09:24 Dose: 1 mg Hydrocortisone (Hydrocortisone 1 % Cream 28.35 Gm Tube) 1 appl TOPICAL BID PRN; Protocol PRN Reason: ankle rash Hydroxyzine HCl (Hydroxyzine Hcl 25 Mg Tablet) 25 mg PO Q6H PRN PRN Reason: Anxiety Last Admin: 04/24/24 10:52 Dose: 25 mg Ibuprofen (Ibuprofen 600 Mg Tablet) 600 mg PO Q6H PRN PRN Reason: moderate pain Last Admin: 04/24/24 02:13 Dose: 600 mg Loratadine (Loratadine 10 Mg Tablet) 10 mg PO DAILY [facility] Last Admin: 04/24/24 09:24 Dose: 10 mg Magnesium Hydroxide (Milk Of Magnesia 30 Ml Oral.Susp) 30 ml PO DAILY PRN PRN Reason: Constipation Last Admin: 04/11/24 08:39 Dose: 30 ml Melatonin (Melatonin 3 Mg Tablet) 6 mg PO BEDTIME [facility] Last Admin: 04/23/24 20:31 Dose: 6 mg Multivitamins/Vitamin C (Multivitamin Tablet) 1 tab PO DAILY [facility] Last Admin: 04/24/24 09:24 Dose: 1 tab Nicotine Polacrilex (Nicotine Polacrilex 2 Mg Gum) 2 mg BUCCAL Q2H PRN PRN Reason: Nicotine Cravings Olanzapine (Olanzapine 5 Mg Tablet) 5 mg PO Q4H PRN PRN Reason: AH or agitiation Last Admin: 04/23/24 14:13 Dose: 5 mg Ondansetron HCl (Ondansetron Odt 4 Mg Tab.Rapdis) 4 mg TRANSLINGU Q6H PRN PRN Reason: Nausea and Vomiting Last Admin: 04/13/24 19:01 Dose: 4 mg Quetiapine Fumarate (Quetiapine Fumarate 25 Mg Tablet) 75 mg PO BEDTIME CASSI Last Admin: 04/23/24 20:30 Dose: 75 mg Sertraline HCl (Sertraline Hcl 25 Mg Tablet) 25 mg PO DAILY [facility]SI Last Admin: 04/24/24 09:23 Dose: 25 mg Sodium Chloride (Sodium Chloride 0.65 % Nasal 44 Ml Sprbtl) 1 spray NOSTRIL-B Q1H PRN PRN Reason: Shortness of Breath/Wheezing Last Admin: 04/24/24 09:24 Dose: 1 spray Trazodone HCl (Trazodone Hcl 50 Mg Tablet) 50 mg PO BEDTIME MRX1 PRN PRN Reason: Insomnia Last Admin: 04/23/24 20:42 Dose: 50 mg Trolamine Salicylate (Trolamine Salicylate 10 % Cream 141 Gm Tube) 1 appl TOPICAL BID PRN; Protocol PRN Reason: hip pain Last Admin: 04/20/24 15:43 Dose: 1 appl Allergies Allergies Allergy/AdvReac Type Severity Reaction Status Date / Time No Known Allergies Allergy Verified 03/31/24 03:15 Assessment & Plan Assessment & Plan (1) MDD (major depressive disorder), recurrent episode: Status: Acute Code(s): F33.9 - Major depressive disorder, recurrent, unspecified (2) PTSD (post-traumatic stress disorder): Status: Acute Code(s): F43.10 - Post-traumatic stress disorder, unspecified Plan Patient is a 63-year-old male who was brought in by ambulance to [facility] ER due to suicidal ideation and homicidal ideation secondary to getting into an argument with his roommate. Plan: CV 15 minute safety checks Start: Depakote 250mg PO BID Zyprexa 5mg PO Q4HR PRN Referral to outpatient psychiatric providers Encourage groups Discharge planning 04/01: In bed most of shift. Patient declined to meet today due to feeling tired. Patient stated, I did not sleep well last night so I am just going to catch up on sleep. Can we meet tomorrow . Start: Melatonin 6mg PO bedtime 04/02: Pt continues to report depression and suicidal ideation. Pt stated, I'm still thinking about suicide. I would be more hopeful if I had somewhere safe to go after here . pt denies HI/VH/AH. Labs to be drawn tomorrow. 04/03 pt reports he's depressed and with SI (though not with active plan/intent)...he says he's in a real dark place. Discussed meds and he agrees to changes including increase of depakote -pt was started on Depakote for mood; he remains depressed and curriculum writer considered increasing Depakote, however dx is MDD. 04/04 Patient says that his mood is a little better. But he says it is because he is stoned on the medications he is on. He says he feels a little drowsy from them too. -will defer medication management to returning provider 04/05: Pt reports feeling down and anxious d/t thinking about the future and not know what will happen. Pt reports suicidal ideation with no plan d/t not having anywhere to go . He feels medications are helping with his mood. denies HI/VH/AH. 04/06:Active on unit. pt reports feeling okay but anxious ; he continues to reports suicidal ideation with no plan. Pt stated, I'm worried I won't get into any where. I've been disappointed before with not getting placement . Pt reports difficulty sleeping. Start: Mirtazapine 7.5mg PO bedtime. denies HI/VH/AH. 04/07: pt reports feeling not great today; patient stated, I'm really missing my best friend today, who was like my brother. I don't have anything anymore . Patient continues to report suicidal ideation with no plan. Patient reports waking up a few times last night. denies HI/VH/AH. Continue current treatment plan. 04/08: pt reports feeling okay today; patient stated, I'm waiting to see if I get to go to the [facility]. It seems like a good place . Patient reports passive suicidal ideation with no plan. he continues to reports waking up a few times last night. denies HI/VH/AH. Increase: Mirtazapine to 15mg PO bedtime 04/09: pt reports feeling okay today. Pt reports he only woke up twice rather than 3 times last night . He reports chronic passive suicidal ideation; pt stated, I have always felt suicidal but I reach out for help before acting on it . denies HI/VH/AH. 04/10: Continue current regimen and plans 04/11: Continue current regimen and plans. Claritin, Aspercreme/for hips and nasal spray ordered 04/12: Continue current plans and regimen 04/13: Active on unit. medication compliant. Per long term care social worker, pt was declined from [facility]; pt notified. Pt reports he believes medications are not working for sleep ; however per nursing, pt slept 7 hours last night. Pt continues to report passive suicidal ideation with no plan. denies HI/VH/AH. Pt hoping for placement soon. 04/14: Continue treatment. 04/15 CAT Head- reports cognitive, hearing changes Olanzapine 5 mg HS- reports increased trigger response with increase in fear Folic Acid 1 mg daily -initial level low Ferrous Sulfate 325 mg daily MVI i tab daily Message left to discuss hearing eval with [facility]. 04/16: Continue tx. 04/17: Continue tx 04/18: Cortisone Cream prn to R ankle rash Increase Olanzapine to 10 mg HS Increase Mirtazapine to 22.5 mg HS 04/19: Pt continues to report feeling depressed. Pt stated, I'm not good because I keep getting rejected from every where . Pt reports he is not attending groups d/t not being able to hear what they are saying . He continues to report suicidal ideation; per nursing staff, pt turning in ripped pieces of fabric that he thought of hurting himself with; placed on 5 minute safety checks. He denies HI/VH/AH. 04/21: Continue current plan. 04/23: Tentative acceptance to [facility] for next week. 04/24: Continue current management and treatment plan. Reason for continued inpatient stay Substantial Risk for: harm to self, inability to function and rapid decompensation Time Spent With Patient Time: Total time managing care of this patient today ____ minutes.
[2024-04-24 14:00] VITALS: BP 133/62; PULSE 86
[2024-04-24 20:00] VITALS: BP 138/67; PULSE 89; RESP 15; TEMP 36.7; O2SAT 95
[2024-04-24] MEDS: QUEtiapine Fumarate 25 MG TABLET 75 MG PO (21:08)
[2024-04-24] MEDS: Melatonin 3 MG TABLET 6 MG PO (21:08)
[2024-04-24] MEDS: traZODone HCL 50 MG TABLET PO (21:09)
[2024-04-25] MEDS: Sodium Chloride 0.65 % Nasal 44 ML SPRBTL 1 SPRAY NOSTRIL-B ×4 (07:28→17:50)
[2024-04-25] MEDS: Acetaminophen 325 MG TABLET 650 MG PO ×2 (07:29→17:50)
[2024-04-25 08:00] VITALS: BP 119/67; PULSE 85; RESP 20; TEMP 36.3; O2SAT 94
[2024-04-25] MEDS: Multivitamin TABLET 1 TAB PO (08:53)
[2024-04-25] MEDS: Sertraline HCL 25 MG TABLET PO (08:53)
[2024-04-25] MEDS: Aspirin 81 MG TAB.CHEW PO (08:53)
[2024-04-25] MEDS: Ibuprofen 600 MG TABLET PO ×2 (08:53→20:24)
[2024-04-25] MEDS: Divalproex Sodium 250 MG TABLET.DR PO ×2 (08:53→20:25)
[2024-04-25] MEDS: amLODIPine Besylate 5 MG TABLET PO (08:53)
[2024-04-25] MEDS: Folic Acid 1 MG TABLET PO (08:53)
[2024-04-25] MEDS: Famotidine 20 MG TABLET PO ×2 (08:53→20:25)
[2024-04-25] MEDS: Loratadine 10 MG TABLET PO (08:54)
[2024-04-25] MEDS: hydrOXYzine HCL 25 MG TABLET PO ×2 (08:55→20:24)
[2024-04-25] MEDS: Trolamine Salicylate 10 % Cream 141 gm Tube 1 APPL TOPICAL (08:56)
--- NOTE | 2024-04-25 11:31 | P.PNPSI_ITS ---
Subjective Subjective Date of Service: 04/25/24 Reason For Visit: f32.A Interim History: Met with pt. Discussed with RN. He remains on 5 min checks due to using a walker. Mood OK Denies SI. He is more optimistic about potential of going to [facility]. Review of Systems Review of Systems R ankle rash hearing is up and down Yes all other systems are reviewed and are negative and Unobtainable due to mental status Constitutional: Reports as per HPI Eyes: Reports as per HPI Reports as per HPI Cardiovascular: Reports as per HPI Respiratory: Reports as per HPI Gastrointestinal: Reports as per HPI Genitourinary: Reports as per HPI Musculoskeletal: Reports as per HPI Skin/Breast: Reports as per HPI Reports as per HPI Psychiatric: Reports as per HPI Endocrine: Reports as per HPI Hematologic/Lymphatic: Reports as per HPI Allergic/Immunologic: Reports as per HPI Mental Status Exam Mental Status Exam Narrative: Pt is alert and oriented; behavior is cooperative and calm; dressed in casual attire; mood described as depressed ; eye contact appropriate; Speech is normal rate, volume and not pressured; thought process is organized; Thought content is on tx; denies HI/AH/VH. Pt reports chronic passive suicidal ideation Patient Appearance: Appropriate Patient Orientation: Person, Place, Time and Situation Level of Consciousness: Alert Patient Behavior: Talkative and Good Eye Contact Mood Description: Appropriate Affect Description: Appropriate Patient Cognition Impaired: No Ability to Follow Directions: Good Speech Pattern: Spontaneous Speech Diagnostics Vital Signs (24Hr): Vital Signs - 24 hr 04/24/24 14:00 04/24/24 20:00 04/25/24 08:00 Temperature 98.0 F 97.4 F Pulse Rate 86 89 85 Respiratory Rate 15 20 Blood Pressure 133/62 138/67 119/67 Pulse Oximetry 95 94 Oxygen Delivery Method Room Air BMI result Body Mass Index 30.7 Labs 04/13/24 18:45 Imaging Radiology Impressions: ITS Impressions Shoulder X-Ray 04/03/24 00:35 IMPRESSION: No acute abnormalities. Electronically signed by: Jigar Benjamin MD 04/03/2024 07:30 AM EDT RP Chest X-Ray 04/13/24 19:10 IMPRESSION: Asymmetric elevation of the right hemidiaphragm with mild subsegmental atelectasis in the right lower lung. Electronically signed by: Keyanna Olea MD 04/13/2024 08:56 PM EDT RP Head CT 04/15/24 18:47 IMPRESSION: 1. No acute intracranial pathology. 2. Mild chronic microangiopathic ischemic changes. Electronically signed by: Yanci Ramirez MD 04/15/2024 11:23 PM EDT RP Cervical Spine CT 04/21/24 10:45 IMPRESSION: Multilevel spondylosis without acute fracture or trauma-related listhesis. Thyroglossal duct cyst, infrahyoid. . Electronically signed by: Florencio Carrillo MD 04/21/2024 12:02 PM EDT RP Head CT 04/21/24 10:45 IMPRESSION: No acute fracture, bony calvarium. No acute intracranial hemorrhage. Small vessel occlusive disease. Superimposed acute stroke/nonhemorrhagic ischemia cannot be excluded. Polypoid paranasal sinus disease. Blood products versus fungal infection, paranasal sinuses. Electronically signed by: Florencio Carrillo MD 04/21/2024 11:35 AM EDT RP Hip X-Ray 04/21/24 10:50 IMPRESSION: No acute fracture seen. Slight superior left hip joint space narrowing. Electronically signed by: Rocco Vila MD 04/21/2024 04:18 PM EDT RP Medications Medications Current Medications Acetaminophen (Acetaminophen 325 Mg Tablet) 650 mg PO Q6H PRN PRN Reason: Headache/Pain Mild Scale (1-3) Last Admin: 04/25/24 07:29 Dose: 650 mg Al Hydroxide/Mg Hydroxide (Magnesium Hydrox/Alum Hydrox 30 Ml Oral.Susp) 30 ml PO Q6H PRN PRN Reason: Heartburn/Nausea Last Admin: 04/19/24 15:35 Dose: 30 ml Albuterol Sulfate (Albuterol Sulfate 90 Mcg 8 Gm Inhaler) 2 puff INHALE RQ4H PRN PRN Reason: Shortness of Breath Amlodipine Besylate (Amlodipine Besylate 5 Mg Tablet) 5 mg PO DAILY CASSI; Protocol Last Admin: 04/25/24 08:53 Dose: 5 mg Aspirin (Aspirin 81 Mg Tab.Chew) 81 mg PO DAILY [facility] Last Admin: 04/25/24 08:53 Dose: 81 mg Divalproex Sodium (Divalproex Sodium 250 Mg Tablet.Dr) 250 mg PO BID [facility] Last Admin: 04/25/24 08:53 Dose: 250 mg Famotidine (Famotidine 20 Mg Tablet) 20 mg PO BID [facility] Last Admin: 04/25/24 08:53 Dose: 20 mg Folic Acid (Folic Acid 1 Mg Tablet) 1 mg PO DAILY [facility] Last Admin: 04/25/24 08:53 Dose: 1 mg Hydrocortisone (Hydrocortisone 1 % Cream 28.35 Gm Tube) 1 appl TOPICAL BID PRN; Protocol PRN Reason: ankle rash Hydroxyzine HCl (Hydroxyzine Hcl 25 Mg Tablet) 25 mg PO Q6H PRN PRN Reason: Anxiety Last Admin: 04/25/24 08:55 Dose: 25 mg Ibuprofen (Ibuprofen 600 Mg Tablet) 600 mg PO Q6H PRN PRN Reason: moderate pain Last Admin: 04/25/24 08:53 Dose: 600 mg Loratadine (Loratadine 10 Mg Tablet) 10 mg PO DAILY [facility] Last Admin: 04/25/24 08:54 Dose: 10 mg Magnesium Hydroxide (Milk Of Magnesia 30 Ml Oral.Susp) 30 ml PO DAILY PRN PRN Reason: Constipation Last Admin: 04/11/24 08:39 Dose: 30 ml Melatonin (Melatonin 3 Mg Tablet) 6 mg PO BEDTIME [facility] Last Admin: 04/24/24 21:08 Dose: 6 mg Multivitamins/Vitamin C (Multivitamin Tablet) 1 tab PO DAILY [facility] Last Admin: 04/25/24 08:53 Dose: 1 tab Nicotine Polacrilex (Nicotine Polacrilex 2 Mg Gum) 2 mg BUCCAL Q2H PRN PRN Reason: Nicotine Cravings Olanzapine (Olanzapine 5 Mg Tablet) 5 mg PO Q4H PRN PRN Reason: AH or agitiation Last Admin: 04/23/24 14:13 Dose: 5 mg Ondansetron HCl (Ondansetron Odt 4 Mg Tab.Rapdis) 4 mg TRANSLINGU Q6H PRN PRN Reason: Nausea and Vomiting Last Admin: 04/13/24 19:01 Dose: 4 mg Quetiapine Fumarate (Quetiapine Fumarate 25 Mg Tablet) 75 mg PO BEDTIME [facility] Last Admin: 04/24/24 21:08 Dose: 75 mg Sertraline HCl (Sertraline Hcl 25 Mg Tablet) 25 mg PO DAILY [facility] Last Admin: 04/25/24 08:53 Dose: 25 mg Sodium Chloride (Sodium Chloride 0.65 % Nasal 44 Ml Sprbtl) 1 spray NOSTRIL-B Q1H PRN PRN Reason: Shortness of Breath/Wheezing Last Admin: 04/25/24 08:57 Dose: 1 spray Trazodone HCl (Trazodone Hcl 50 Mg Tablet) 50 mg PO BEDTIME MRX1 PRN PRN Reason: Insomnia Last Admin: 04/24/24 21:09 Dose: 50 mg Trolamine Salicylate (Trolamine Salicylate 10 % Cream 141 Gm Tube) 1 appl TOPICAL BID PRN; Protocol PRN Reason: hip pain Last Admin: 04/25/24 08:56 Dose: 1 appl Allergies Allergies Allergy/AdvReac Type Severity Reaction Status Date / Time No Known Allergies Allergy Verified 03/31/24 03:15 Assessment & Plan Assessment & Plan (1) MDD (major depressive disorder), recurrent episode: Status: Acute Code(s): F33.9 - Major depressive disorder, recurrent, unspecified (2) PTSD (post-traumatic stress disorder): Status: Acute Code(s): F43.10 - Post-traumatic stress disorder, unspecified Plan Patient is a 63-year-old male who was brought in by ambulance to [facility] ER due to suicidal ideation and homicidal ideation secondary to getting into an argument with his roommate. Plan: CV 15 minute safety checks Start: Depakote 250mg PO BID Zyprexa 5mg PO Q4HR PRN Referral to outpatient psychiatric providers Encourage groups Discharge planning 04/01: In bed most of shift. Patient declined to meet today due to feeling tired. Patient stated, I did not sleep well last night so I am just going to catch up on sleep. Can we meet tomorrow . Start: Melatonin 6mg PO bedtime 04/02: Pt continues to report depression and suicidal ideation. Pt stated, I'm still thinking about suicide. I would be more hopeful if I had somewhere safe to go after here . pt denies HI/VH/AH. Labs to be drawn tomorrow. 04/03 pt reports he's depressed and with SI (though not with active plan/intent)...he says he's in a real dark place. Discussed meds and he agrees to changes including increase of depakote -pt was started on Depakote for mood; he remains depressed and screen writer considered increasing Depakote, however dx is MDD. 04/04 Patient says that his mood is a little better. But he says it is because he is stoned on the medications he is on. He says he feels a little drowsy from them too. -will defer medication management to returning provider 04/05: Pt reports feeling down and anxious d/t thinking about the future and not know what will happen. Pt reports suicidal ideation with no plan d/t not having anywhere to go . He feels medications are helping with his mood. denies HI/VH/AH. 04/06:Active on unit. pt reports feeling okay but anxious ; he continues to reports suicidal ideation with no plan. Pt stated, I'm worried I won't get into any where. I've been disappointed before with not getting placement . Pt reports difficulty sleeping. Start: Mirtazapine 7.5mg PO bedtime. denies HI/VH/AH. 04/07: pt reports feeling not great today; patient stated, I'm really missing my best friend today, who was like my brother. I don't have anything anymore . Patient continues to report suicidal ideation with no plan. Patient reports waking up a few times last night. denies HI/VH/AH. Continue current treatment plan. 04/08: pt reports feeling okay today; patient stated, I'm waiting to see if I get to go to the [facility]. It seems like a good place . Patient reports passive suicidal ideation with no plan. he continues to reports waking up a few times last night. denies HI/VH/AH. Increase: Mirtazapine to 15mg PO bedtime 04/09: pt reports feeling okay today. Pt reports he only woke up twice rather than 3 times last night . He reports chronic passive suicidal ideation; pt stated, I have always felt suicidal but I reach out for help before acting on it . denies HI/VH/AH. 04/10: Continue current regimen and plans 04/11: Continue current regimen and plans. Claritin, Aspercreme/for hips and nasal spray ordered 04/12: Continue current plans and regimen 04/13: Active on unit. medication compliant. Per outreach and education social worker, pt was declined from [facility]; pt notified. Pt reports he believes medications are not working for sleep ; however per nursing, pt slept 7 hours last night. Pt continues to report passive suicidal ideation with no plan. denies HI/VH/AH. Pt hoping for placement soon. 04/14: Continue treatment. 04/15 CAT Head- reports cognitive, hearing changes Olanzapine 5 mg HS- reports increased trigger response with increase in fear Folic Acid 1 mg daily -initial level low Ferrous Sulfate 325 mg daily MVI i tab daily Message left to discuss hearing eval with [facility]. 04/16: Continue tx. 04/17: Continue tx 04/18: Cortisone Cream prn to R ankle rash Increase Olanzapine to 10 mg HS Increase Mirtazapine to 22.5 mg HS 04/19: Pt continues to report feeling depressed. Pt stated, I'm not good because I keep getting rejected from every where . Pt reports he is not attending groups d/t not being able to hear what they are saying . He continues to report suicidal ideation; per nursing staff, pt turning in ripped pieces of fabric that he thought of hurting himself with; placed on 5 minute safety checks. He denies HI/VH/AH. 04/21: Continue current plan. 04/23: Tentative acceptance to [facility] for next week. 04/24: Continue current management and treatment plan. 04/25: Continue current management and treatment plan. Reason for continued inpatient stay Substantial Risk for: harm to self, inability to function and rapid decompensation Time Spent With Patient Time: Total time managing care of this patient today ____ minutes.
[2024-04-25] MEDS: OLANZapine 5 MG TABLET PO (12:43)
[2024-04-25 15:12] VITALS: BP 134/72; PULSE 86
[2024-04-25 15:13] VITALS: BP 138/75; PULSE 94
[2024-04-25 15:14] VITALS: BP 153/75; PULSE 92
[2024-04-25 19:55] VITALS: BP 151/72; PULSE 86; RESP 15; TEMP 36.6; O2SAT 99
[2024-04-25] MEDS: Melatonin 3 MG TABLET 6 MG PO (20:24)
[2024-04-25] MEDS: QUEtiapine Fumarate 25 MG TABLET 75 MG PO (20:24)
[2024-04-25] MEDS: traZODone HCL 50 MG TABLET PO (20:24)
[2024-04-26] VITALS (7 sets, daily range): BP systolic 110–171; BP diastolic 63–79; PULSE 80–100; RESP 18; TEMP 36.8; O2SAT 93–96
--- NOTE | 2024-04-26 09:57 | HO.PSYCHPN ---
Subjective Subjective Date of Service: 04/26/24 Reason For Visit: f32.A Subjective Notes: Conditional Voluntary Healthcare Proxy: No Guardianship: No Medical Problems Affecting Mental Status: No Interim History: Denies SI,HI,AH,VH Hearing continues to be impaired, however, team reports at times, pt is able to hear with no issues. Hearing eval scheduled for 04/29. BP elevated, Amlodipine increase to 7.5 mg daily from 5 mg Pt is pleased with his acceptance at [facility], feeling relief that he will have a safe place to live. Team is working on transition tasks. Medication Compliance: Yes Side effects from medications: No Attending Groups: Intermittent Review of Systems Acute medical concerns: No increase in antihypertensive Medical Review of Systems: unchanged Review of Systems Review of Systems Yes all other systems are reviewed and are negative Mental Status Exam Mental Status Exam Patient Appearance: Appropriate Patient Orientation: Person, Place, Time and Situation Level of Consciousness: Alert Patient Behavior: Talkative and Good Eye Contact Mood Description: Appropriate Affect Description: Appropriate Patient Cognition Impaired: No Ability to Follow Directions: Good Speech Pattern: Spontaneous Speech Hallucinations: None Delusions: Not Present Perceptual Disturbances: Depersonalization Thought Content: positive for Perseveration Judgement: Good Diagnostics Vital Signs (24Hr): Vital Signs - 24 hr 04/25/24 15:12 04/25/24 15:13 04/25/24 15:14 Temperature Pulse Rate 86 94 92 Respiratory Rate Blood Pressure 134/72 138/75 153/75 H Pulse Oximetry 04/25/24 19:55 Temperature 97.8 F Pulse Rate 86 Respiratory Rate 15 Blood Pressure 151/72 H Pulse Oximetry 99 BMI result Body Mass Index 30.7 Labs 04/13/24 18:45 Imaging Radiology Impressions: ITS Impressions Shoulder X-Ray 04/03/24 00:35 IMPRESSION: No acute abnormalities. Electronically signed by: Jigar Benjamin MD 04/03/2024 07:30 AM EDT RP Chest X-Ray 04/13/24 19:10 IMPRESSION: Asymmetric elevation of the right hemidiaphragm with mild subsegmental atelectasis in the right lower lung. Electronically signed by: Keyanna Olea MD 04/13/2024 08:56 PM EDT RP Head CT 04/15/24 18:47 IMPRESSION: 1. No acute intracranial pathology. 2. Mild chronic microangiopathic ischemic changes. Electronically signed by: Yanci Ramirez MD 04/15/2024 11:23 PM EDT RP Cervical Spine CT 04/21/24 10:45 IMPRESSION: Multilevel spondylosis without acute fracture or trauma-related listhesis. Thyroglossal duct cyst, infrahyoid. . Electronically signed by: Florencio Carrillo MD 04/21/2024 12:02 PM EDT RP Head CT 04/21/24 10:45 IMPRESSION: No acute fracture, bony calvarium. No acute intracranial hemorrhage. Small vessel occlusive disease. Superimposed acute stroke/nonhemorrhagic ischemia cannot be excluded. Polypoid paranasal sinus disease. Blood products versus fungal infection, paranasal sinuses. Electronically signed by: Florencio Carrillo MD 04/21/2024 11:35 AM EDT RP Hip X-Ray 04/21/24 10:50 IMPRESSION: No acute fracture seen. Slight superior left hip joint space narrowing. Electronically signed by: Rocco Vila MD 04/21/2024 04:18 PM EDT RP Medications Medications Current Medications Acetaminophen (Acetaminophen 325 Mg Tablet) 650 mg PO Q6H PRN PRN Reason: Headache/Pain Mild Scale (1-3) Last Admin: 04/25/24 17:50 Dose: 650 mg Al Hydroxide/Mg Hydroxide (Magnesium Hydrox/Alum Hydrox 30 Ml Oral.Susp) 30 ml PO Q6H PRN PRN Reason: Heartburn/Nausea Last Admin: 04/19/24 15:35 Dose: 30 ml Albuterol Sulfate (Albuterol Sulfate 90 Mcg 8 Gm Inhaler) 2 puff INHALE RQ4H PRN PRN Reason: Shortness of Breath Amlodipine Besylate (Amlodipine Besylate 5 Mg Tablet) 5 mg PO DAILY [facility]; Protocol Last Admin: 04/25/24 08:53 Dose: 5 mg Aspirin (Aspirin 81 Mg Tab.Chew) 81 mg PO DAILY [facility] Last Admin: 04/25/24 08:53 Dose: 81 mg Divalproex Sodium (Divalproex Sodium 250 Mg Tablet.Dr) 250 mg PO BID [facility] Last Admin: 04/25/24 20:25 Dose: 250 mg Famotidine (Famotidine 20 Mg Tablet) 20 mg PO BID [facility] Last Admin: 04/25/24 20:25 Dose: 20 mg Folic Acid (Folic Acid 1 Mg Tablet) 1 mg PO DAILY [facility] Last Admin: 04/25/24 08:53 Dose: 1 mg Hydrocortisone (Hydrocortisone 1 % Cream 28.35 Gm Tube) 1 appl TOPICAL BID PRN; Protocol PRN Reason: ankle rash Hydroxyzine HCl (Hydroxyzine Hcl 25 Mg Tablet) 25 mg PO Q6H PRN PRN Reason: Anxiety Last Admin: 04/25/24 20:24 Dose: 25 mg Ibuprofen (Ibuprofen 600 Mg Tablet) 600 mg PO Q6H PRN PRN Reason: moderate pain Last Admin: 04/25/24 20:24 Dose: 600 mg Loratadine (Loratadine 10 Mg Tablet) 10 mg PO DAILY [facility] Last Admin: 04/25/24 08:54 Dose: 10 mg Magnesium Hydroxide (Milk Of Magnesia 30 Ml Oral.Susp) 30 ml PO DAILY PRN PRN Reason: Constipation Last Admin: 04/11/24 08:39 Dose: 30 ml Melatonin (Melatonin 3 Mg Tablet) 6 mg PO BEDTIME [facility] Last Admin: 04/25/24 20:24 Dose: 6 mg Multivitamins/Vitamin C (Multivitamin Tablet) 1 tab PO DAILY [facility] Last Admin: 04/25/24 08:53 Dose: 1 tab Nicotine Polacrilex (Nicotine Polacrilex 2 Mg Gum) 2 mg BUCCAL Q2H PRN PRN Reason: Nicotine Cravings Olanzapine (Olanzapine 5 Mg Tablet) 5 mg PO Q4H PRN PRN Reason: AH or agitiation Last Admin: 04/25/24 12:43 Dose: 5 mg Ondansetron HCl (Ondansetron Odt 4 Mg Tab.Rapdis) 4 mg TRANSLINGU Q6H PRN PRN Reason: Nausea and Vomiting Last Admin: 04/13/24 19:01 Dose: 4 mg Quetiapine Fumarate (Quetiapine Fumarate 25 Mg Tablet) 75 mg PO BEDTIME [facility] Last Admin: 04/25/24 20:24 Dose: 75 mg Sertraline HCl (Sertraline Hcl 25 Mg Tablet) 25 mg PO DAILY [facility] Last Admin: 04/25/24 08:53 Dose: 25 mg Sodium Chloride (Sodium Chloride 0.65 % Nasal 44 Ml Sprbtl) 1 spray NOSTRIL-B Q1H PRN PRN Reason: Shortness of Breath/Wheezing Last Admin: 04/25/24 17:50 Dose: 1 spray Trazodone HCl (Trazodone Hcl 50 Mg Tablet) 50 mg PO BEDTIME MRX1 PRN PRN Reason: Insomnia Last Admin: 04/25/24 20:24 Dose: 50 mg Trolamine Salicylate (Trolamine Salicylate 10 % Cream 141 Gm Tube) 1 appl TOPICAL BID PRN; Protocol PRN Reason: hip pain Last Admin: 04/25/24 08:56 Dose: 1 appl Allergies Allergies Allergy/AdvReac Type Severity Reaction Status Date / Time No Known Allergies Allergy Verified 03/31/24 03:15 Assessment & Plan Assessment & Plan (1) MDD (major depressive disorder), recurrent episode: Status: Acute Code(s): F33.9 - Major depressive disorder, recurrent, unspecified (2) PTSD (post-traumatic stress disorder): Status: Acute Code(s): F43.10 - Post-traumatic stress disorder, unspecified Plan Patient is a 63-year-old male who was brought in by ambulance to [facility] ER due to suicidal ideation and homicidal ideation secondary to getting into an argument with his roommate. Plan: CV 15 minute safety checks Start: Depakote 250mg PO BID Zyprexa 5mg PO Q4HR PRN Referral to outpatient psychiatric providers Encourage groups Discharge planning 04/01: In bed most of shift. Patient declined to meet today due to feeling tired. Patient stated, I did not sleep well last night so I am just going to catch up on sleep. Can we meet tomorrow . Start: Melatonin 6mg PO bedtime 04/02: Pt continues to report depression and suicidal ideation. Pt stated, I'm still thinking about suicide. I would be more hopeful if I had somewhere safe to go after here . pt denies HI/VH/AH. Labs to be drawn tomorrow. 04/03 pt reports he's depressed and with SI (though not with active plan/intent)...he says he's in a real dark place. Discussed meds and he agrees to changes including increase of depakote -pt was started on Depakote for mood; he remains depressed and residential mortgage underwriter considered increasing Depakote, however dx is MDD. 04/04 Patient says that his mood is a little better. But he says it is because he is stoned on the medications he is on. He says he feels a little drowsy from them too. -will defer medication management to returning provider 04/05: Pt reports feeling down and anxious d/t thinking about the future and not know what will happen. Pt reports suicidal ideation with no plan d/t not having anywhere to go . He feels medications are helping with his mood. denies HI/VH/AH. 04/06:Active on unit. pt reports feeling okay but anxious ; he continues to reports suicidal ideation with no plan. Pt stated, I'm worried I won't get into any where. I've been disappointed before with not getting placement . Pt reports difficulty sleeping. Start: Mirtazapine 7.5mg PO bedtime. denies HI/VH/AH. 04/07: pt reports feeling not great today; patient stated, I'm really missing my best friend today, who was like my brother. I don't have anything anymore . Patient continues to report suicidal ideation with no plan. Patient reports waking up a few times last night. denies HI/VH/AH. Continue current treatment plan. 04/08: pt reports feeling okay today; patient stated, I'm waiting to see if I get to go to the [facility] [place] [facility]. It seems like a good place . Patient reports passive suicidal ideation with no plan. he continues to reports waking up a few times last night. denies HI/VH/AH. Increase: Mirtazapine to 15mg PO bedtime 04/09: pt reports feeling okay today. Pt reports he only woke up twice rather than 3 times last night . He reports chronic passive suicidal ideation; pt stated, I have always felt suicidal but I reach out for help before acting on it . denies HI/VH/AH. 04/10: Continue current regimen and plans 04/11: Continue current regimen and plans. Claritin, Aspercreme/for hips and nasal spray ordered 04/12: Continue current plans and regimen 04/13: Active on unit. medication compliant. Per social studies teacher, pt was declined from [facility]; pt notified. Pt reports he believes medications are not working for sleep ; however per nursing, pt slept 7 hours last night. Pt continues to report passive suicidal ideation with no plan. denies HI/VH/AH. Pt hoping for placement soon. 04/14: Continue treatment. 04/15 CAT Head- reports cognitive, hearing changes Olanzapine 5 mg HS- reports increased trigger response with increase in fear Folic Acid 1 mg daily -initial level low Ferrous Sulfate 325 mg daily MVI i tab daily Message left to discuss hearing eval with [facility] Speech and Hearing Dept. 04/16: Continue tx. 04/17: Continue tx 04/18: Cortisone Cream prn to R ankle rash Increase Olanzapine to 10 mg HS Increase Mirtazapine to 22.5 mg HS 04/19: Pt continues to report feeling depressed. Pt stated, I'm not good because I keep getting rejected from every where . Pt reports he is not attending groups d/t not being able to hear what they are saying . He continues to report suicidal ideation; per nursing staff, pt turning in ripped pieces of fabric that he thought of hurting himself with; placed on 5 minute safety checks. He denies HI/VH/AH. 04/21: Continue current plan. 04/23: Tentative acceptance to [facility] for next week. 04/24: Continue current management and treatment plan. 04/25: Continue current management and treatment plan. 04/26: Prepare for transition to [facility] Increase Amlodipine to 7.5 mg. Reason for continued inpatient stay Substantial Risk for: rapid decompensation Time Spent With Patient Time: Total time managing care of this patient today ____ minutes.
[2024-04-26] MEDS: Divalproex Sodium 250 MG TABLET.DR PO ×2 (10:13→22:02)
[2024-04-26] MEDS: Famotidine 20 MG TABLET PO ×2 (10:13→20:49)
[2024-04-26] MEDS: amLODIPine Besylate 5 MG TABLET PO (10:13)
[2024-04-26] MEDS: Multivitamin TABLET 1 TAB PO (10:14)
[2024-04-26] MEDS: Loratadine 10 MG TABLET PO (10:14)
[2024-04-26] MEDS: Folic Acid 1 MG TABLET PO (10:14)
[2024-04-26] MEDS: Ibuprofen 600 MG TABLET PO ×2 (10:15→20:49)
[2024-04-26] MEDS: Trolamine Salicylate 10 % Cream 141 gm Tube 1 APPL TOPICAL (10:17)
[2024-04-26] MEDS: Aspirin 81 MG TAB.CHEW PO (10:19)
[2024-04-26] MEDS: Sertraline HCL 25 MG TABLET PO (10:20)
[2024-04-26] MEDS: Lidocaine 4 % Patch ADH..PATCH 1 PATCH TRANSDERMA (10:53)
--- NOTE | 2024-04-26 11:07 | PC.NURSE ---
Kai's orthos this morning were: supine 171/75 (HR 80), sitting 164/64 (HR 86), standing 149/68 (88). SIVAKUMAR Hickman made aware via tigertext. Cardiac meds administered per AUG.
[2024-04-26] MEDS: hydrOXYzine HCL 25 MG TABLET PO ×2 (12:20→20:48)
[2024-04-26] MEDS: Sodium Chloride 0.65 % Nasal 44 ML SPRBTL 1 SPRAY NOSTRIL-B (16:17)
[2024-04-26] MEDS: traZODone HCL 50 MG TABLET PO (20:48)
[2024-04-26] MEDS: Melatonin 3 MG TABLET 6 MG PO (20:48)
[2024-04-26] MEDS: QUEtiapine Fumarate 25 MG TABLET 75 MG PO (20:48)
[2024-04-27 07:55] VITALS: BP 118/65; PULSE 88; RESP 18; TEMP 36.8; O2SAT 98
[2024-04-27] MEDS: Folic Acid 1 MG TABLET PO (08:11)
[2024-04-27] MEDS: Sertraline HCL 25 MG TABLET PO (08:11)
[2024-04-27] MEDS: Loratadine 10 MG TABLET PO (08:12)
[2024-04-27] MEDS: hydrOXYzine HCL 25 MG TABLET PO ×2 (08:12→19:00)
[2024-04-27] MEDS: amLODIPine Besylate 2.5 MG TABLET 7.5 MG PO (08:12)
[2024-04-27] MEDS: Aspirin 81 MG TAB.CHEW PO (08:12)
[2024-04-27] MEDS: Multivitamin TABLET 1 TAB PO (08:12)
[2024-04-27] MEDS: Ibuprofen 600 MG TABLET PO ×2 (08:12→19:00)
[2024-04-27] MEDS: Divalproex Sodium 250 MG TABLET.DR PO ×2 (08:12→20:49)
[2024-04-27] MEDS: Famotidine 20 MG TABLET PO ×2 (08:13→20:49)
[2024-04-27] MEDS: Lidocaine 4 % Patch ADH..PATCH 1 PATCH TRANSDERMA (08:15)
[2024-04-27] MEDS: Ondansetron ODT 4 MG TAB.RAPDIS TRANSLINGU (12:56)
[2024-04-27 15:13] VITALS: BP 133/71; PULSE 89
[2024-04-27 15:14] VITALS: BP 132/78; PULSE 87
[2024-04-27 15:15] VITALS: BP 158/85; PULSE 87
--- NOTE | 2024-04-27 16:09 | P.PNPSI_ITS ---
Subjective Subjective Date of Service: 04/27/24 Reason For Visit: f32.A Subjective Notes: Conditional Voluntary Healthcare Proxy: No Guardianship: No Medical Problems Affecting Mental Status: No Interim History: Denies SI/HI/AH/VH Tolerating increase in Amlodipine Visable in milieu Denies current concerns today Medication Compliance: Yes Side effects from medications: No Attending Groups: Intermittent Review of Systems Acute medical concerns: No Medical Review of Systems: unchanged Review of Systems Review of Systems Yes all other systems are reviewed and are negative Mental Status Exam Mental Status Exam Patient Appearance: Appropriate Patient Orientation: Person, Place, Time and Situation Level of Consciousness: Alert Patient Behavior: Talkative and Good Eye Contact Mood Description: Appropriate Affect Description: Appropriate Patient Cognition Impaired: No Ability to Follow Directions: Good Speech Pattern: Spontaneous Speech Hallucinations: None Delusions: Not Present Perceptual Disturbances: Depersonalization Thought Content: positive for Perseveration Judgement: Good Diagnostics Vital Signs (24Hr): Vital Signs - 24 hr 04/26/24 16:50 04/26/24 16:51 04/26/24 19:49 Temperature 98.2 F Pulse Rate 100 97 92 Respiratory Rate Blood Pressure 136/79 141/78 H 110/63 Pulse Oximetry 93 Oxygen Delivery Method Room Air 04/27/24 07:55 04/27/24 15:13 04/27/24 15:14 Temperature 98.2 F Pulse Rate 88 89 87 Respiratory Rate 18 Blood Pressure 118/65 133/71 132/78 Pulse Oximetry 98 Oxygen Delivery Method Room Air 04/27/24 15:15 Temperature Pulse Rate 87 Respiratory Rate Blood Pressure 158/85 H Pulse Oximetry Oxygen Delivery Method BMI result Body Mass Index 30.7 Labs 04/13/24 18:45 Imaging Radiology Impressions: ITS Impressions Shoulder X-Ray 04/03/24 00:35 IMPRESSION: No acute abnormalities. Electronically signed by: Jigar Benjamin MD 04/03/2024 07:30 AM EDT RP Chest X-Ray 04/13/24 19:10 IMPRESSION: Asymmetric elevation of the right hemidiaphragm with mild subsegmental atelectasis in the right lower lung. Electronically signed by: Keyanna Olea MD 04/13/2024 08:56 PM EDT RP Head CT 04/15/24 18:47 IMPRESSION: 1. No acute intracranial pathology. 2. Mild chronic microangiopathic ischemic changes. Electronically signed by: Yanci Ramirez MD 04/15/2024 11:23 PM EDT RP Cervical Spine CT 04/21/24 10:45 IMPRESSION: Multilevel spondylosis without acute fracture or trauma-related listhesis. Thyroglossal duct cyst, infrahyoid. . Electronically signed by: Florencio Carrillo MD 04/21/2024 12:02 PM EDT RP Head CT 04/21/24 10:45 IMPRESSION: No acute fracture, bony calvarium. No acute intracranial hemorrhage. Small vessel occlusive disease. Superimposed acute stroke/nonhemorrhagic ischemia cannot be excluded. Polypoid paranasal sinus disease. Blood products versus fungal infection, paranasal sinuses. Electronically signed by: Florencio Carrillo MD 04/21/2024 11:35 AM EDT RP Hip X-Ray 04/21/24 10:50 IMPRESSION: No acute fracture seen. Slight superior left hip joint space narrowing. Electronically signed by: Rocco Vila MD 04/21/2024 04:18 PM EDT RP Medications Medications Current Medications Acetaminophen (Acetaminophen 325 Mg Tablet) 650 mg PO Q6H PRN PRN Reason: Headache/Pain Mild Scale (1-3) Last Admin: 04/25/24 17:50 Dose: 650 mg Al Hydroxide/Mg Hydroxide (Magnesium Hydrox/Alum Hydrox 30 Ml Oral.Susp) 30 ml PO Q6H PRN PRN Reason: Heartburn/Nausea Last Admin: 04/19/24 15:35 Dose: 30 ml Albuterol Sulfate (Albuterol Sulfate 90 Mcg 8 Gm Inhaler) 2 puff INHALE RQ4H PRN PRN Reason: Shortness of Breath Amlodipine Besylate (Amlodipine Besylate 2.5 Mg Tablet) 7.5 mg PO DAILY [facility]; Protocol Last Admin: 04/27/24 08:12 Dose: 7.5 mg Aspirin (Aspirin 81 Mg Tab.Chew) 81 mg PO DAILY [facility] Last Admin: 04/27/24 08:12 Dose: 81 mg Divalproex Sodium (Divalproex Sodium 250 Mg Tablet.Dr) 250 mg PO BID [facility] Last Admin: 04/27/24 08:12 Dose: 250 mg Famotidine (Famotidine 20 Mg Tablet) 20 mg PO BID [facility] Last Admin: 04/27/24 08:13 Dose: 20 mg Folic Acid (Folic Acid 1 Mg Tablet) 1 mg PO DAILY [facility] Last Admin: 04/27/24 08:11 Dose: 1 mg Hydrocortisone (Hydrocortisone 1 % Cream 28.35 Gm Tube) 1 appl TOPICAL BID PRN; Protocol PRN Reason: ankle rash Hydroxyzine HCl (Hydroxyzine Hcl 25 Mg Tablet) 25 mg PO Q6H PRN PRN Reason: Anxiety Last Admin: 04/27/24 08:12 Dose: 25 mg Ibuprofen (Ibuprofen 600 Mg Tablet) 600 mg PO Q6H PRN PRN Reason: moderate pain Last Admin: 04/27/24 08:12 Dose: 600 mg Lidocaine (Lidocaine 4 % Patch Adh..Patch) 1 patch TRANSDERMA DAILY [facility]; Protocol Last Admin: 04/27/24 08:15 Dose: 1 patch Loratadine (Loratadine 10 Mg Tablet) 10 mg PO DAILY [facility] Last Admin: 04/27/24 08:12 Dose: 10 mg Magnesium Hydroxide (Milk Of Magnesia 30 Ml Oral.Susp) 30 ml PO DAILY PRN PRN Reason: Constipation Last Admin: 04/11/24 08:39 Dose: 30 ml Melatonin (Melatonin 3 Mg Tablet) 6 mg PO BEDTIME [facility] Last Admin: 04/26/24 20:48 Dose: 6 mg Multivitamins/Vitamin C (Multivitamin Tablet) 1 tab PO DAILY [facility] Last Admin: 04/27/24 08:12 Dose: 1 tab Nicotine Polacrilex (Nicotine Polacrilex 2 Mg Gum) 2 mg BUCCAL Q2H PRN PRN Reason: Nicotine Cravings Olanzapine (Olanzapine 5 Mg Tablet) 5 mg PO Q4H PRN PRN Reason: AH or agitiation Last Admin: 04/25/24 12:43 Dose: 5 mg Ondansetron HCl (Ondansetron Odt 4 Mg Tab.Rapdis) 4 mg TRANSLINGU Q6H PRN PRN Reason: Nausea and Vomiting Last Admin: 04/27/24 12:56 Dose: 4 mg Quetiapine Fumarate (Quetiapine Fumarate 25 Mg Tablet) 75 mg PO BEDTIME [facility] Last Admin: 04/26/24 20:48 Dose: 75 mg Sertraline HCl (Sertraline Hcl 25 Mg Tablet) 25 mg PO DAILY [facility] Last Admin: 04/27/24 08:11 Dose: 25 mg Sodium Chloride (Sodium Chloride 0.65 % Nasal 44 Ml Sprbtl) 1 spray NOSTRIL-B Q1H PRN PRN Reason: Shortness of Breath/Wheezing Last Admin: 04/26/24 16:17 Dose: 1 spray Trazodone HCl (Trazodone Hcl 50 Mg Tablet) 50 mg PO BEDTIME MRX1 PRN PRN Reason: Insomnia Last Admin: 04/26/24 20:48 Dose: 50 mg Trolamine Salicylate (Trolamine Salicylate 10 % Cream 141 Gm Tube) 1 appl TOPICAL BID PRN; Protocol PRN Reason: hip pain Last Admin: 04/26/24 10:17 Dose: 1 appl Allergies Allergies Allergy/AdvReac Type Severity Reaction Status Date / Time No Known Allergies Allergy Verified 03/31/24 03:15 Assessment & Plan Assessment & Plan (1) MDD (major depressive disorder), recurrent episode: Status: Acute Code(s): F33.9 - Major depressive disorder, recurrent, unspecified (2) PTSD (post-traumatic stress disorder): Status: Acute Code(s): F43.10 - Post-traumatic stress disorder, unspecified Plan Patient is a 63-year-old male who was brought in by ambulance to [facility] ER due to suicidal ideation and homicidal ideation secondary to getting into an argument with his roommate. Plan: CV 15 minute safety checks Start: Depakote 250mg PO BID Zyprexa 5mg PO Q4HR PRN Referral to outpatient psychiatric providers Encourage groups Discharge planning 04/01: In bed most of shift. Patient declined to meet today due to feeling tired. Patient stated, I did not sleep well last night so I am just going to catch up on sleep. Can we meet tomorrow . Start: Melatonin 6mg PO bedtime 04/02: Pt continues to report depression and suicidal ideation. Pt stated, I'm still thinking about suicide. I would be more hopeful if I had somewhere safe to go after here . pt denies HI/VH/AH. Labs to be drawn tomorrow. 04/03 pt reports he's depressed and with SI (though not with active plan/intent)...he says he's in a real dark place. Discussed meds and he agrees to changes including increase of depakote -pt was started on Depakote for mood; he remains depressed and poem writer considered increasing Depakote, however dx is MDD. 04/04 Patient says that his mood is a little better. But he says it is because he is stoned on the medications he is on. He says he feels a little drowsy from them too. -will defer medication management to returning provider 04/05: Pt reports feeling down and anxious d/t thinking about the future and not know what will happen. Pt reports suicidal ideation with no plan d/t not having anywhere to go . He feels medications are helping with his mood. denies HI/VH/AH. 04/06:Active on unit. pt reports feeling okay but anxious ; he continues to reports suicidal ideation with no plan. Pt stated, I'm worried I won't get into any where. I've been disappointed before with not getting placement . Pt reports difficulty sleeping. Start: Mirtazapine 7.5mg PO bedtime. denies HI/VH/AH. 04/07: pt reports feeling not great today; patient stated, I'm really missing my best friend today, who was like my brother. I don't have anything anymore . Patient continues to report suicidal ideation with no plan. Patient reports waking up a few times last night. denies HI/VH/AH. Continue current treatment plan. 04/08: pt reports feeling okay today; patient stated, I'm waiting to see if I get to go to the [facility]. It seems like a good place . Patient reports passive suicidal ideation with no plan. he continues to reports waking up a few times last night. denies HI/VH/AH. Increase: Mirtazapine to 15mg PO bedtime 04/09: pt reports feeling okay today. Pt reports he only woke up twice rather than 3 times last night . He reports chronic passive suicidal ideation; pt stated, I have always felt suicidal but I reach out for help before acting on it . denies HI/VH/AH. 04/10: Continue current regimen and plans 04/11: Continue current regimen and plans. Claritin, Aspercreme/for hips and nasal spray ordered 04/12: Continue current plans and regimen 04/13: Active on unit. medication compliant. Per social worker psychiatric, pt was declined from [facility]; pt notified. Pt reports he believes medications are not working for sleep ; however per nursing, pt slept 7 hours last night. Pt continues to report passive suicidal ideation with no plan. denies HI/VH/AH. Pt hoping for placement soon. 04/14: Continue treatment. 04/15 CAT Head- reports cognitive, hearing changes Olanzapine 5 mg HS- reports increased trigger response with increase in fear Folic Acid 1 mg daily -initial level low Ferrous Sulfate 325 mg daily MVI i tab daily Message left to discuss hearing eval with [facility] [place] [facility] [place]. 04/16: Continue tx. 04/17: Continue tx 04/18: Cortisone Cream prn to R ankle rash Increase Olanzapine to 10 mg HS Increase Mirtazapine to 22.5 mg HS 04/19: Pt continues to report feeling depressed. Pt stated, I'm not good because I keep getting rejected from every where . Pt reports he is not attending groups d/t not being able to hear what they are saying . He continues to report suicidal ideation; per nursing staff, pt turning in ripped pieces of fabric that he thought of hurting himself with; placed on 5 minute safety checks. He denies HI/VH/AH. 04/21: Continue current plan. 04/23: Tentative acceptance to [facility] for next week. 04/24: Continue current management and treatment plan. 04/25: Continue current management and treatment plan. 04/27: Continue current plan Reason for continued inpatient stay Substantial Risk for: rapid decompensation Time Spent With Patient Time: Total time managing care of this patient today ____ minutes.
[2024-04-27] MEDS: Sodium Chloride 0.65 % Nasal 44 ML SPRBTL 1 SPRAY NOSTRIL-B (16:30)
[2024-04-27] MEDS: OLANZapine 5 MG TABLET PO (19:00)
[2024-04-27 20:00] VITALS: BP 123/61; PULSE 80; TEMP 36.4; O2SAT 97
[2024-04-27] MEDS: Melatonin 3 MG TABLET 6 MG PO (20:48)
[2024-04-27] MEDS: QUEtiapine Fumarate 25 MG TABLET 75 MG PO (20:49)
[2024-04-28] MEDS: Acetaminophen 325 MG TABLET 650 MG PO ×2 (08:00→20:45)
[2024-04-28 08:59] VITALS: BP 124/67; PULSE 71; TEMP 36.4; O2SAT 94
[2024-04-28] MEDS: Lidocaine 4 % Patch ADH..PATCH 1 PATCH TRANSDERMA (09:00)
[2024-04-28] MEDS: Famotidine 20 MG TABLET PO ×2 (09:01→20:45)
[2024-04-28] MEDS: Loratadine 10 MG TABLET PO (09:01)
[2024-04-28] MEDS: amLODIPine Besylate 2.5 MG TABLET 7.5 MG PO (09:01)
[2024-04-28] MEDS: Sertraline HCL 25 MG TABLET PO (09:01)
[2024-04-28] MEDS: Folic Acid 1 MG TABLET PO (09:01)
[2024-04-28] MEDS: Multivitamin TABLET 1 TAB PO (09:01)
[2024-04-28] MEDS: Divalproex Sodium 250 MG TABLET.DR PO ×2 (09:01→20:45)
[2024-04-28] MEDS: Aspirin 81 MG TAB.CHEW PO (09:01)
[2024-04-28] MEDS: Ibuprofen 600 MG TABLET PO (15:58)
[2024-04-28] MEDS: hydrOXYzine HCL 25 MG TABLET PO (15:59)
[2024-04-28] MEDS: Sodium Chloride 0.65 % Nasal 44 ML SPRBTL 1 SPRAY NOSTRIL-B (16:00)
--- NOTE | 2024-04-28 16:53 | P.PNPSI_ITS ---
Subjective Subjective Date of Service: 04/28/24 Reason For Visit: f32.A Subjective Notes: Conditional Voluntary Healthcare Proxy: No Guardianship: No Medical Problems Affecting Mental Status: No Interim History: Discussed feeling relief that he will have a safe place to live. Hearing eval scheduled for 04/29. Pt does report apprehension about this as he worries he will lose his hearing completely. We are in the process of medical clearance for admission to [facility] next week. Pt is in agreement of all testing and is pleased with this plan of care. Medication Compliance: Yes Side effects from medications: No Attending Groups: Intermittent Review of Systems Acute medical concerns: No Medical Review of Systems: unchanged Mental Status Exam Mental Status Exam Patient Appearance: Appropriate Patient Orientation: Person, Place, Time and Situation Level of Consciousness: Alert Patient Behavior: Talkative and Good Eye Contact Mood Description: Appropriate Affect Description: Appropriate Patient Cognition Impaired: No Ability to Follow Directions: Good Speech Pattern: Spontaneous Speech Hallucinations: None Delusions: Not Present Perceptual Disturbances: Depersonalization Thought Content: positive for Perseveration Judgement: Good Diagnostics Vital Signs (24Hr): Vital Signs - 24 hr 04/27/24 20:00 04/28/24 08:59 Temperature 97.5 F 97.6 F Pulse Rate 80 71 Blood Pressure 123/61 124/67 Pulse Oximetry 97 94 Oxygen Delivery Method Room Air Room Air BMI result Body Mass Index 30.7 Labs 04/30/24 08:46 04/30/24 08:46 Imaging Radiology Impressions: ITS Impressions Shoulder X-Ray 04/03/24 00:35 IMPRESSION: No acute abnormalities. Electronically signed by: Jigar Benjamin MD 04/03/2024 07:30 AM EDT RP Chest X-Ray 04/13/24 19:10 IMPRESSION: Asymmetric elevation of the right hemidiaphragm with mild subsegmental atelectasis in the right lower lung. Electronically signed by: Keyanna Olea MD 04/13/2024 08:56 PM EDT RP Head CT 04/15/24 18:47 IMPRESSION: 1. No acute intracranial pathology. 2. Mild chronic microangiopathic ischemic changes. Electronically signed by: Yanci Ramirez MD 04/15/2024 11:23 PM EDT RP Cervical Spine CT 04/21/24 10:45 IMPRESSION: Multilevel spondylosis without acute fracture or trauma-related listhesis. Thyroglossal duct cyst, infrahyoid. . Electronically signed by: Florencio Carrillo MD 04/21/2024 12:02 PM EDT RP Head CT 04/21/24 10:45 IMPRESSION: No acute fracture, bony calvarium. No acute intracranial hemorrhage. Small vessel occlusive disease. Superimposed acute stroke/nonhemorrhagic ischemia cannot be excluded. Polypoid paranasal sinus disease. Blood products versus fungal infection, paranasal sinuses. Electronically signed by: Florencio Carrillo MD 04/21/2024 11:35 AM EDT RP Hip X-Ray 04/21/24 10:50 IMPRESSION: No acute fracture seen. Slight superior left hip joint space narrowing. Electronically signed by: Rocco Vila MD 04/21/2024 04:18 PM EDT RP Medications Medications Current Medications Acetaminophen (Acetaminophen 325 Mg Tablet) 650 mg PO Q6H PRN PRN Reason: Headache/Pain Mild Scale (1-3) Last Admin: 04/28/24 08:00 Dose: 650 mg Al Hydroxide/Mg Hydroxide (Magnesium Hydrox/Alum Hydrox 30 Ml Oral.Susp) 30 ml PO Q6H PRN PRN Reason: Heartburn/Nausea Last Admin: 04/19/24 15:35 Dose: 30 ml Albuterol Sulfate (Albuterol Sulfate 90 Mcg 8 Gm Inhaler) 2 puff INHALE RQ4H PRN PRN Reason: Shortness of Breath Amlodipine Besylate (Amlodipine Besylate 2.5 Mg Tablet) 7.5 mg PO DAILY [facility]; Protocol Last Admin: 04/28/24 09:01 Dose: 7.5 mg Aspirin (Aspirin 81 Mg Tab.Chew) 81 mg PO DAILY [facility] Last Admin: 04/28/24 09:01 Dose: 81 mg Divalproex Sodium (Divalproex Sodium 250 Mg Tablet.Dr) 250 mg PO BID [facility] Last Admin: 04/28/24 09:01 Dose: 250 mg Famotidine (Famotidine 20 Mg Tablet) 20 mg PO BID [facility] Last Admin: 04/28/24 09:01 Dose: 20 mg Folic Acid (Folic Acid 1 Mg Tablet) 1 mg PO DAILY [facility] Last Admin: 04/28/24 09:01 Dose: 1 mg Hydrocortisone (Hydrocortisone 1 % Cream 28.35 Gm Tube) 1 appl TOPICAL BID PRN; Protocol PRN Reason: ankle rash Hydroxyzine HCl (Hydroxyzine Hcl 25 Mg Tablet) 25 mg PO Q6H PRN PRN Reason: Anxiety Last Admin: 04/28/24 15:59 Dose: 25 mg Ibuprofen (Ibuprofen 600 Mg Tablet) 600 mg PO Q6H PRN PRN Reason: moderate pain Last Admin: 04/28/24 15:58 Dose: 600 mg Lidocaine (Lidocaine 4 % Patch Adh..Patch) 1 patch TRANSDERMA DAILY [facility]; Protocol Last Admin: 04/28/24 09:00 Dose: 1 patch Loratadine (Loratadine 10 Mg Tablet) 10 mg PO DAILY [facility] Last Admin: 04/28/24 09:01 Dose: 10 mg Magnesium Hydroxide (Milk Of Magnesia 30 Ml Oral.Susp) 30 ml PO DAILY PRN PRN Reason: Constipation Last Admin: 04/11/24 08:39 Dose: 30 ml Melatonin (Melatonin 3 Mg Tablet) 6 mg PO BEDTIME [facility] Last Admin: 04/27/24 20:48 Dose: 6 mg Multivitamins/Vitamin C (Multivitamin Tablet) 1 tab PO DAILY [facility] Last Admin: 04/28/24 09:01 Dose: 1 tab Nicotine Polacrilex (Nicotine Polacrilex 2 Mg Gum) 2 mg BUCCAL Q2H PRN PRN Reason: Nicotine Cravings Olanzapine (Olanzapine 5 Mg Tablet) 5 mg PO Q4H PRN PRN Reason: AH or agitiation Last Admin: 04/27/24 19:00 Dose: 5 mg Ondansetron HCl (Ondansetron Odt 4 Mg Tab.Rapdis) 4 mg TRANSLINGU Q6H PRN PRN Reason: Nausea and Vomiting Last Admin: 04/27/24 12:56 Dose: 4 mg Quetiapine Fumarate (Quetiapine Fumarate 25 Mg Tablet) 75 mg PO BEDTIME [facility] Last Admin: 04/27/24 20:49 Dose: 75 mg Sertraline HCl (Sertraline Hcl 25 Mg Tablet) 25 mg PO DAILY [facility] Last Admin: 04/28/24 09:01 Dose: 25 mg Sodium Chloride (Sodium Chloride 0.65 % Nasal 44 Ml Sprbtl) 1 spray NOSTRIL-B Q1H PRN PRN Reason: Shortness of Breath/Wheezing Last Admin: 04/28/24 16:00 Dose: 1 spray Trazodone HCl (Trazodone Hcl 50 Mg Tablet) 50 mg PO BEDTIME MRX1 PRN PRN Reason: Insomnia Last Admin: 04/26/24 20:48 Dose: 50 mg Trolamine Salicylate (Trolamine Salicylate 10 % Cream 141 Gm Tube) 1 appl TOPICAL BID PRN; Protocol PRN Reason: hip pain Last Admin: 04/26/24 10:17 Dose: 1 appl Allergies Allergies Allergy/AdvReac Type Severity Reaction Status Date / Time No Known Allergies Allergy Verified 03/31/24 03:15 Assessment & Plan Assessment & Plan (1) MDD (major depressive disorder), recurrent episode: Status: Acute Code(s): F33.9 - Major depressive disorder, recurrent, unspecified (2) PTSD (post-traumatic stress disorder): Status: Acute Code(s): F43.10 - Post-traumatic stress disorder, unspecified Plan Patient is a 63-year-old male who was brought in by ambulance to [facility] ER due to suicidal ideation and homicidal ideation secondary to getting into an argument with his roommate. Plan: CV 15 minute safety checks Start: Depakote 250mg PO BID Zyprexa 5mg PO Q4HR PRN Referral to outpatient psychiatric providers Encourage groups Discharge planning 04/01: In bed most of shift. Patient declined to meet today due to feeling tired. Patient stated, I did not sleep well last night so I am just going to catch up on sleep. Can we meet tomorrow . Start: Melatonin 6mg PO bedtime 04/02: Pt continues to report depression and suicidal ideation. Pt stated, I'm still thinking about suicide. I would be more hopeful if I had somewhere safe to go after here . pt denies HI/VH/AH. Labs to be drawn tomorrow. 04/03 pt reports he's depressed and with SI (though not with active plan/intent)...he says he's in a real dark place. Discussed meds and he agrees to changes including increase of depakote -pt was started on Depakote for mood; he remains depressed and fha underwriter considered increasing Depakote, however dx is MDD. 04/04 Patient says that his mood is a little better. But he says it is because he is stoned on the medications he is on. He says he feels a little drowsy from them too. -will defer medication management to returning provider 04/05: Pt reports feeling down and anxious d/t thinking about the future and not know what will happen. Pt reports suicidal ideation with no plan d/t not having anywhere to go . He feels medications are helping with his mood. denies HI/VH/AH. 04/06:Active on unit. pt reports feeling okay but anxious ; he continues to reports suicidal ideation with no plan. Pt stated, I'm worried I won't get into any where. I've been disappointed before with not getting placement . Pt reports difficulty sleeping. Start: Mirtazapine 7.5mg PO bedtime. denies HI/VH/AH. 04/07: pt reports feeling not great today; patient stated, I'm really missing my best friend today, who was like my brother. I don't have anything anymore . Patient continues to report suicidal ideation with no plan. Patient reports waking up a few times last night. denies HI/VH/AH. Continue current treatment plan. 04/08: pt reports feeling okay today; patient stated, I'm waiting to see if I get to go to the [facility] [facility]. It seems like a good place . Patient reports passive suicidal ideation with no plan. he continues to reports waking up a few times last night. denies HI/VH/AH. Increase: Mirtazapine to 15mg PO bedtime 04/09: pt reports feeling okay today. Pt reports he only woke up twice rather than 3 times last night . He reports chronic passive suicidal ideation; pt stated, I have always felt suicidal but I reach out for help before acting on it . denies HI/VH/AH. 04/10: Continue current regimen and plans 04/11: Continue current regimen and plans. Claritin, Aspercreme/for hips and nasal spray ordered 04/12: Continue current plans and regimen 04/13: Active on unit. medication compliant. Per director social welfare, pt was declined from [facility]; pt notified. Pt reports he believes medications are not working for sleep ; however per nursing, pt slept 7 hours last night. Pt continues to report passive suicidal ideation with no plan. denies HI/VH/AH. Pt hoping for placement soon. 04/14: Continue treatment. 04/15 CAT Head- reports cognitive, hearing changes Olanzapine 5 mg HS- reports increased trigger response with increase in fear Folic Acid 1 mg daily -initial level low Ferrous Sulfate 325 mg daily MVI i tab daily Message left to discuss [place] [facility] [place] 04/16: Continue tx. 04/17: Continue tx 04/18: Cortisone Cream prn to R ankle rash Increase Olanzapine to 10 mg HS Increase Mirtazapine to 22.5 mg HS 04/19: Pt continues to report feeling depressed. Pt stated, I'm not good because I keep getting rejected from every where . Pt reports he is not attending groups d/t not being able to hear what they are saying . He continues to report suicidal ideation; per nursing staff, pt turning in ripped pieces of fabric that he thought of hurting himself with; placed on 5 minute safety checks. He denies HI/VH/AH. 04/21: Continue current plan. 04/23: Tentative acceptance to [facility] for next week. 04/24: Continue current management and treatment plan. 04/25: Continue current management and treatment plan. 04/27: Continue current plan 04/28: Continue current plan Reason for continued inpatient stay Substantial Risk for: rapid decompensation Time Spent With Patient Time: Total time managing care of this patient today ____ minutes.
[2024-04-28 19:56] VITALS: BP 142/71; PULSE 80; RESP 14; TEMP 36.2; O2SAT 96
[2024-04-28] MEDS: QUEtiapine Fumarate 25 MG TABLET 75 MG PO (20:45)
[2024-04-28] MEDS: Melatonin 3 MG TABLET 6 MG PO (20:45)
[2024-04-28] MEDS: traZODone HCL 50 MG TABLET PO (20:45)
[2024-04-29] MEDS: Acetaminophen 325 MG TABLET 650 MG PO (04:02)
[2024-04-29 08:00] VITALS: PULSE 82; TEMP 36.4; O2SAT 96
[2024-04-29] MEDS: Ibuprofen 600 MG TABLET PO ×2 (08:15→21:41)
[2024-04-29 09:31] VITALS: BP 115/56
[2024-04-29] MEDS: amLODIPine Besylate 2.5 MG TABLET 7.5 MG PO (09:31)
[2024-04-29] MEDS: Divalproex Sodium 250 MG TABLET.DR PO ×2 (09:32→21:37)
[2024-04-29] MEDS: Famotidine 20 MG TABLET PO ×2 (09:32→21:37)
[2024-04-29] MEDS: Multivitamin TABLET 1 TAB PO (09:32)
[2024-04-29] MEDS: Sertraline HCL 25 MG TABLET PO (09:32)
[2024-04-29] MEDS: Loratadine 10 MG TABLET PO (09:32)
[2024-04-29] MEDS: Folic Acid 1 MG TABLET PO (09:32)
[2024-04-29] MEDS: Aspirin 81 MG TAB.CHEW PO (09:32)
[2024-04-29] MEDS: Lidocaine 4 % Patch ADH..PATCH 1 PATCH TRANSDERMA (11:20)
[2024-04-29 11:23] LABS: HBS Num1 4.36 mIU/mL (0-7.99); HBc Num1 0.13 S/CO (0.00-0.79); HBsAGNum1 0.54 S/CO (0.00-0.99); Hepatitis A Antibody IgM 0.29 Index (0-0.79); Hepatitis B Core Antibody Nonreactive (Nonreactive); Hepatitis B Surface Antigen Negative (Negative); ~HepC Num1 0.14 S/CO (0.00-0.79); ~Hepatitis A Antibody IgM Nonreactive (Nonreactive); ~Hepatitis B Surface Antibody NONREACTIVE (Nonreactive); ~Hepatitis C Antibody Nonreactive (Nonreactive)
[2024-04-29] MEDS: Magnesium Hydrox/Alum Hydrox 30 ML ORAL.SUSP PO (11:24)
--- NOTE | 2024-04-29 16:24 | HO.PSYCHPN ---
Subjective Subjective Date of Service: 04/29/24 Reason For Visit: f32.A Subjective Notes: Conditional Voluntary Healthcare Proxy: No Guardianship: No Medical Problems Affecting Mental Status: No Interim History: Hearing eval completed. Team requests pt have an ENT consult so the proper hearing aides may be ordered. Team is working on scheduling this eval. Tentative DC for 05/[address] [facility]. I am very happy, but nervous at the same time. Medication Compliance: Yes Side effects from medications: No Attending Groups: Yes Review of Systems Acute medical concerns: No Medical Review of Systems: unchanged Review of Systems Review of Systems Hearing loss Mental Status Exam Mental Status Exam Patient Appearance: Appropriate Patient Orientation: Person, Place, Time and Situation Level of Consciousness: Alert Patient Behavior: Talkative and Good Eye Contact Mood Description: Appropriate Affect Description: Appropriate Patient Cognition Impaired: No Ability to Follow Directions: Good Speech Pattern: Spontaneous Speech Hallucinations: None Delusions: Not Present Perceptual Disturbances: Depersonalization Thought Content: positive for Perseveration Judgement: Good Diagnostics Vital Signs (24Hr): Vital Signs - 24 hr 04/28/24 19:56 04/29/24 08:00 04/29/24 09:31 Temperature 97.2 F 97.5 F Pulse Rate 80 82 Respiratory Rate 14 Blood Pressure 142/71 H 115/56 L Pulse Oximetry 96 96 Oxygen Delivery Method Room Air Room Air BMI result Body Mass Index 30.7 Labs 04/30/24 08:46 04/30/24 08:46 Labs: Laboratory Results - last 48 hr 04/29/24 10:40 Hepatitis A IgM Ab Nonreactive Hep Bs Antigen Negative Hep Bs Antibody NONREACTIVE Hep B Core Total Ab Nonreactive Hepatitis C Ab (EIA) Nonreactive Imaging Radiology Impressions: ITS Impressions Shoulder X-Ray 04/03/24 00:35 IMPRESSION: No acute abnormalities. Electronically signed by: Jigar Benjamin MD 04/03/2024 07:30 AM EDT RP Chest X-Ray 04/13/24 19:10 IMPRESSION: Asymmetric elevation of the right hemidiaphragm with mild subsegmental atelectasis in the right lower lung. Electronically signed by: Keyanna Olea MD 04/13/2024 08:56 PM EDT RP Head CT 10/17/24 18:47 IMPRESSION: 1. No acute intracranial pathology. 2. Mild chronic microangiopathic ischemic changes. Electronically signed by: Yanci Ramirez MD 04/15/2024 11:23 PM EDT RP Cervical Spine CT 04/21/24 10:45 IMPRESSION: Multilevel spondylosis without acute fracture or trauma-related listhesis. Thyroglossal duct cyst, infrahyoid. . Electronically signed by: Florencio Carrillo MD 04/21/2024 12:02 PM EDT RP Head CT 04/21/24 10:45 IMPRESSION: No acute fracture, bony calvarium. No acute intracranial hemorrhage. Small vessel occlusive disease. Superimposed acute stroke/nonhemorrhagic ischemia cannot be excluded. Polypoid paranasal sinus disease. Blood products versus fungal infection, paranasal sinuses. Electronically signed by: Florencio Carrillo MD 04/21/2024 11:35 AM EDT RP Hip X-Ray 04/21/24 10:50 IMPRESSION: No acute fracture seen. Slight superior left hip joint space narrowing. Electronically signed by: Rocco Vila MD 04/21/2024 04:18 PM EDT RP Medications Medications Current Medications Acetaminophen (Acetaminophen 325 Mg Tablet) 650 mg PO Q6H PRN PRN Reason: Headache/Pain Mild Scale (1-3) Last Admin: 04/29/24 04:02 Dose: 650 mg Al Hydroxide/Mg Hydroxide (Magnesium Hydrox/Alum Hydrox 30 Ml Oral.Susp) 30 ml PO Q6H PRN PRN Reason: Heartburn/Nausea Last Admin: 04/29/24 11:24 Dose: 30 ml Albuterol Sulfate (Albuterol Sulfate 90 Mcg 8 Gm Inhaler) 2 puff INHALE RQ4H PRN PRN Reason: Shortness of Breath Amlodipine Besylate (Amlodipine Besylate 2.5 Mg Tablet) 7.5 mg PO DAILY [facility] BEDS AT [facility]; Protocol Last Admin: 04/29/24 09:31 Dose: 7.5 mg Aspirin (Aspirin 81 Mg Tab.Chew) 81 mg PO DAILY [facility] 234 BEDS AT THE [facility] Last Admin: 04/29/24 09:32 Dose: 81 mg Divalproex Sodium (Divalproex Sodium 250 Mg Tablet.Dr) 250 mg PO BID [facility]CLUDE 234 BEDS AT THE [facility] Last Admin: 04/29/24 09:32 Dose: 250 mg Famotidine (Famotidine 20 Mg Tablet) 20 mg PO BID [facility]CLUDE 234 BEDS AT THE [facility] Last Admin: 04/29/24 09:32 Dose: 20 mg Folic Acid (Folic Acid 1 Mg Tablet) 1 mg PO DAILY [facility]CLUDE 234 BEDS AT THE [facility] Last Admin: 04/29/24 09:32 Dose: 1 mg Hydrocortisone (Hydrocortisone 1 % Cream 28.35 Gm Tube) 1 appl TOPICAL BID PRN; Protocol PRN Reason: ankle rash Hydroxyzine HCl (Hydroxyzine Hcl 25 Mg Tablet) 25 mg PO Q6H PRN PRN Reason: Anxiety Last Admin: 04/28/24 15:59 Dose: 25 mg Ibuprofen (Ibuprofen 600 Mg Tablet) 600 mg PO Q6H PRN PRN Reason: moderate pain Last Admin: 04/29/24 08:15 Dose: 600 mg Lidocaine (Lidocaine 4 % Patch Adh..Patch) 1 patch TRANSDERMA DAILY [facility] 234 BEDS AT THE [facility]; Protocol Last Admin: 04/29/24 11:20 Dose: 1 patch Loratadine (Loratadine 10 Mg Tablet) 10 mg PO DAILY [facility] 234 BEDS AT THE [facility] Last Admin: 04/29/24 09:32 Dose: 10 mg Magnesium Hydroxide (Milk Of Magnesia 30 Ml Oral.Susp) 30 ml PO DAILY PRN PRN Reason: Constipation Last Admin: 04/11/24 08:39 Dose: 30 ml Melatonin (Melatonin 3 Mg Tablet) 6 mg PO BEDTIME [facility] 234 BEDS AT [facility] Last Admin: 04/28/24 20:45 Dose: 6 mg Multivitamins/Vitamin C (Multivitamin Tablet) 1 tab PO DAILY [facility] 234 BEDS AT THE [facility] Last Admin: 04/29/24 09:32 Dose: 1 tab Nicotine Polacrilex (Nicotine Polacrilex 2 Mg Gum) 2 mg BUCCAL Q2H PRN PRN Reason: Nicotine Cravings Olanzapine (Olanzapine 5 Mg Tablet) 5 mg PO Q4H PRN PRN Reason: AH or agitiation Last Admin: 04/27/24 19:00 Dose: 5 mg Ondansetron HCl (Ondansetron Odt 4 Mg Tab.Rapdis) 4 mg TRANSLINGU Q6H PRN PRN Reason: Nausea and Vomiting Last Admin: 04/27/24 12:56 Dose: 4 mg Quetiapine Fumarate (Quetiapine Fumarate 25 Mg Tablet) 75 mg PO BEDTIME [facility] 234 BEDS AT THE [facility] Last Admin: 04/28/24 20:45 Dose: 75 mg Sertraline HCl (Sertraline Hcl 25 Mg Tablet) 25 mg PO DAILY [facility] Last Admin: 04/29/24 09:32 Dose: 25 mg Sodium Chloride (Sodium Chloride 0.65 % Nasal 44 Ml Sprbtl) 1 spray NOSTRIL-B Q1H PRN PRN Reason: Shortness of Breath/Wheezing Last Admin: 04/28/24 16:00 Dose: 1 spray Trazodone HCl (Trazodone Hcl 50 Mg Tablet) 50 mg PO BEDTIME MRX1 PRN PRN Reason: Insomnia Last Admin: 04/28/24 20:45 Dose: 50 mg Trolamine Salicylate (Trolamine Salicylate 10 % Cream 141 Gm Tube) 1 appl TOPICAL BID PRN; Protocol PRN Reason: hip pain Last Admin: 04/26/24 10:17 Dose: 1 appl Allergies Allergies Allergy/AdvReac Type Severity Reaction Status Date / Time No Known Allergies Allergy Verified 03/31/24 03:15 Assessment & Plan Assessment & Plan (1) MDD (major depressive disorder), recurrent episode: Status: Acute Code(s): F33.9 - Major depressive disorder, recurrent, unspecified (2) PTSD (post-traumatic stress disorder): Status: Acute Code(s): F43.10 - Post-traumatic stress disorder, unspecified Plan Patient is a 63-year-old male who was brought in by ambulance to [facility] ER due to suicidal ideation and homicidal ideation secondary to getting into an argument with his roommate. Plan: CV 15 minute safety checks Start: Depakote 250mg PO BID Zyprexa 5mg PO Q4HR PRN Referral to outpatient psychiatric providers Encourage groups Discharge planning 04/01: In bed most of shift. Patient declined to meet today due to feeling tired. Patient stated, I did not sleep well last night so I am just going to catch up on sleep. Can we meet tomorrow . Start: Melatonin 6mg PO bedtime 04/02: Pt continues to report depression and suicidal ideation. Pt stated, I'm still thinking about suicide. I would be more hopeful if I had somewhere safe to go after here . pt denies HI/VH/AH. Labs to be drawn tomorrow. 04/03 pt reports he's depressed and with SI (though not with active plan/intent)...he says he's in a real dark place. Discussed meds and he agrees to changes including increase of depakote -pt was started on Depakote for mood; he remains depressed and bid writer considered increasing Depakote, however dx is MDD. 04/04 Patient says that his mood is a little better. But he says it is because he is stoned on the medications he is on. He says he feels a little drowsy from them too. -will defer medication management to returning provider 04/05: Pt reports feeling down and anxious d/t thinking about the future and not know what will happen. Pt reports suicidal ideation with no plan d/t not having anywhere to go . He feels medications are helping with his mood. denies HI/VH/AH. 04/06:Active on unit. pt reports feeling okay but anxious ; he continues to reports suicidal ideation with no plan. Pt stated, I'm worried I won't get into any where. I've been disappointed before with not getting placement . Pt reports difficulty sleeping. Start: Mirtazapine 7.5mg PO bedtime. denies HI/VH/AH. 04/07: pt reports feeling not great today; patient stated, I'm really missing my best friend today, who was like my brother. I don't have anything anymore . Patient continues to report suicidal ideation with no plan. Patient reports waking up a few times last night. denies HI/VH/AH. Continue current treatment plan. 04/08: pt reports feeling okay today; patient stated, I'm waiting to see if I get to go to the [facility]. It seems like a good place . Patient reports passive suicidal ideation with no plan. he continues to reports waking up a few times last night. denies HI/VH/AH. Increase: Mirtazapine to 15mg PO bedtime 04/09: pt reports feeling okay today. Pt reports he only woke up twice rather than 3 times last night . He reports chronic passive suicidal ideation; pt stated, I have always felt suicidal but I reach out for help before acting on it . denies HI/VH/AH. 04/10: Continue current regimen and plans 04/11: Continue current regimen and plans. Claritin, Aspercreme/for hips and nasal spray ordered 04/12: Continue current plans and regimen 04/13: Active on unit. medication compliant. Per psychiatric social worker, pt was declined from [facility]; pt notified. Pt reports he believes medications are not working for sleep ; however per nursing, pt slept 7 hours last night. Pt continues to report passive suicidal ideation with no plan. denies HI/VH/AH. Pt hoping for placement soon. 04/14: Continue treatment. 04/15 CAT Head- reports cognitive, hearing changes Olanzapine 5 mg HS- reports increased trigger response with increase in fear Folic Acid 1 mg daily -initial level low Ferrous Sulfate 325 mg daily MVI i tab daily Message left to discuss hearing eval with [facility] [place] [facility]. 04/16: Continue tx. 04/17: Continue tx 04/18: Cortisone Cream prn to R ankle rash Increase Olanzapine to 10 mg HS Increase Mirtazapine to 22.5 mg HS 04/19: Pt continues to report feeling depressed. Pt stated, I'm not good because I keep getting rejected from every where . Pt reports he is not attending groups d/t not being able to hear what they are saying . He continues to report suicidal ideation; per nursing staff, pt turning in ripped pieces of fabric that he thought of hurting himself with; placed on 5 minute safety checks. He denies HI/VH/AH. 04/21: Continue current plan. 04/23: Tentative acceptance to [facility] for next week. 04/24: Continue current management and treatment plan. 04/25: Continue current management and treatment plan. 04/27: Continue current plan 04/29/24: ENT Consult TBS Continue current plan. Reason for continued inpatient stay Substantial Risk for: rapid decompensation and med/psych decompensation Time Spent With Patient Time: Total time managing care of this patient today ____ minutes.
--- NOTE | 2024-04-29 16:57 | HO.PM.IMCN ---
History of Present Illness Data of Consult Service Date: 04/29/24 Primary Care Provider: None Physician HPI Reason for consult: Discharge H&P Patient is a 63-year-old male with a PMH significant for hemochromatosis, arthritis, asthma, hard of hearing, left eye blindness, and depression who was admitted to [facility] for increasing depression with SI and HI. Patient has tentatively been accepted to [facility]. Hospitalist consult for medical clearance for discharge. Patient seen and evaluated at bedside where he is resting comfortably. Reports he is ?doing much better and ?feeling pretty good?. States earlier today had minor stomach upset that was alleviated by TUMS. Otherwise has no acute medical complaints at this time. Denies chest pain/pressure, palpitations. No nausea, vomiting, abdominal pain. Denies fever, chills. No shortness a breath or difficulty breathing. Denies headache or acute vision changes. Vital signs stable and WNL. Labs reviewed, grossly unremarkable and baseline for patient no leukocytosis. Stable H&H of 14.1/40.1. No significant electrolyte abnormalities. Renal function baseline. Hepatic function with mildly elevated AST and ALT, at baseline. Patient's iron studies indicate 88% saturation and ferritin levels elevated at 1457. Reached out to Dr. Hudson in Hematology who said patient should set up phlebotomy outpatient. No indication for emergent phlebotomy at this time. He also needs to follow regularly with PCP and/or hematology outpatient. Review of Systems Review of Systems: Patient has no acute medical complaints at this time [facility] Medical History Hemochromatosis Blindness of left eye Hard of hearing Arthritis Social History Household Members: Other Household Members Other:: Housemate Housing: House Do you presently have visiting nurse or other home services: No Comment: [email or web address] Patient Tobacco Use Status: Former Tobacco user Tobacco use type: Cigarette e-Cigarette/Vaping Use: Never Used service: No Sexual orientation: Straight/Heterosexual Meds Allergies Allergy/AdvReac Type Severity Reaction Status Date / Time No Known Allergies Allergy Verified 03/31/24 03:15 Active Medications: Current Medications Acetaminophen (Acetaminophen 325 Mg Tablet) 650 mg PO Q6H PRN PRN Reason: Headache/Pain Mild Scale (1-3) Last Admin: 04/29/24 04:02 Dose: 650 mg Al Hydroxide/Mg Hydroxide (Magnesium Hydrox/Alum Hydrox 30 Ml Oral.Susp) 30 ml PO Q6H PRN PRN Reason: Heartburn/Nausea Last Admin: 04/29/24 11:24 Dose: 30 ml Albuterol Sulfate (Albuterol Sulfate 90 Mcg 8 Gm Inhaler) 2 puff INHALE RQ4H PRN PRN Reason: Shortness of Breath Amlodipine Besylate (Amlodipine Besylate 2.5 Mg Tablet) 7.5 mg PO DAILY [facility]; Protocol Last Admin: 04/29/24 09:31 Dose: 7.5 mg Aspirin (Aspirin 81 Mg Tab.Chew) 81 mg PO DAILY [facility] Last Admin: 04/29/24 09:32 Dose: 81 mg Divalproex Sodium (Divalproex Sodium 250 Mg Tablet.Dr) 250 mg PO BID [facility] Last Admin: 04/29/24 09:32 Dose: 250 mg Famotidine (Famotidine 20 Mg Tablet) 20 mg PO BID [facility] Last Admin: 04/29/24 09:32 Dose: 20 mg Folic Acid (Folic Acid 1 Mg Tablet) 1 mg PO DAILY [facility] Last Admin: 04/29/24 09:32 Dose: 1 mg Hydrocortisone (Hydrocortisone 1 % Cream 28.35 Gm Tube) 1 appl TOPICAL BID PRN; Protocol PRN Reason: ankle rash Hydroxyzine HCl (Hydroxyzine Hcl 25 Mg Tablet) 25 mg PO Q6H PRN PRN Reason: Anxiety Last Admin: 04/28/24 15:59 Dose: 25 mg Ibuprofen (Ibuprofen 600 Mg Tablet) 600 mg PO Q6H PRN PRN Reason: moderate pain Last Admin: 04/29/24 08:15 Dose: 600 mg Lidocaine (Lidocaine 4 % Patch Adh..Patch) 1 patch TRANSDERMA DAILY [facility]; Protocol Last Admin: 04/29/24 11:20 Dose: 1 patch Loratadine (Loratadine 10 Mg Tablet) 10 mg PO DAILY [facility] Last Admin: 04/29/24 09:32 Dose: 10 mg Magnesium Hydroxide (Milk Of Magnesia 30 Ml Oral.Susp) 30 ml PO DAILY PRN PRN Reason: Constipation Last Admin: 04/11/24 08:39 Dose: 30 ml Melatonin (Melatonin 3 Mg Tablet) 6 mg PO BEDTIME [facility] Last Admin: 04/28/24 20:45 Dose: 6 mg Multivitamins/Vitamin C (Multivitamin Tablet) 1 tab PO DAILY [facility] Last Admin: 04/29/24 09:32 Dose: 1 tab Nicotine Polacrilex (Nicotine Polacrilex 2 Mg Gum) 2 mg BUCCAL Q2H PRN PRN Reason: Nicotine Cravings Olanzapine (Olanzapine 5 Mg Tablet) 5 mg PO Q4H PRN PRN Reason: AH or agitiation Last Admin: 04/27/24 19:00 Dose: 5 mg Ondansetron HCl (Ondansetron Odt 4 Mg Tab.Rapdis) 4 mg TRANSLINGU Q6H PRN PRN Reason: Nausea and Vomiting Last Admin: 04/27/24 12:56 Dose: 4 mg Quetiapine Fumarate (Quetiapine Fumarate 25 Mg Tablet) 75 mg PO BEDTIME CASSI Last Admin: 04/28/24 20:45 Dose: 75 mg Sertraline HCl (Sertraline Hcl 25 Mg Tablet) 25 mg PO DAILY [facility] Last Admin: 04/29/24 09:32 Dose: 25 mg Sodium Chloride (Sodium Chloride 0.65 % Nasal 44 Ml Sprbtl) 1 spray NOSTRIL-B Q1H PRN PRN Reason: Shortness of Breath/Wheezing Last Admin: 04/28/24 16:00 Dose: 1 spray Trazodone HCl (Trazodone Hcl 50 Mg Tablet) 50 mg PO BEDTIME MRX1 PRN PRN Reason: Insomnia Last Admin: 04/28/24 20:45 Dose: 50 mg Trolamine Salicylate (Trolamine Salicylate 10 % Cream 141 Gm Tube) 1 appl TOPICAL BID PRN; Protocol PRN Reason: hip pain Last Admin: 04/26/24 10:17 Dose: 1 appl Home Medications ?Medication ?Instructions ?Recorded ?Confirmed ?Last Taken ?Type No Known Home Meds 03/31/24 03/31/24 Unknown History Physical Exam Vital Signs and Narrative: Vital Signs: Last Vital Signs Temp 97.5 F 04/29/24 08:00 Pulse 82 04/29/24 08:00 Resp 14 04/28/24 19:56 BP 115/56 L 04/29/24 09:31 Pulse Ox 96 04/29/24 08:00 O2 Del Method Room Air 04/29/24 08:00 BMI result Body Mass Index 30.7 General: AOx3, no acute distress Resp: CTA bilaterally CVS: S1, S2, RRR GI: +BS, NT, no distention Skin: Warm, dry Neuro: Cranial nerves II-XII grossly intact bilaterally. Motor grossly intact bilaterally Extremities: No edema Psych: Appropriate affect Results Labs 04/30/24 08:46 04/30/24 08:46 Labs: Laboratory Results - last 24 hr 04/29/24 10:40 Hepatitis A IgM Ab Nonreactive Hep Bs Antigen Negative Hep Bs Antibody NONREACTIVE Hep B Core Total Ab Nonreactive Hepatitis C Ab (EIA) Nonreactive Assessment and Plan (1) MDD (major depressive disorder), recurrent episode: Status: Acute Plan Patient is a 63-year-old male with a PMH significant for hemochromatosis, arthritis, asthma, hard of hearing, left eye blindness, and depression who was admitted to [facility] for increasing depression with SI and HI. Patient has tentatively been accepted to [facility]. Hospitalist consult for medical clearance for discharge. Patient has no acute medical complaints at this time. Mood disorder Plan as per Psychiatry Hemochromatosis Patient reports history of hemochromatosis, unclear where or by whom Patient does not follow with Hematology, unclear if ever sought treatment Iron elevated 180, TIBC low at 205, iron saturation elevated at 88%, ferritin elevated at 1457 Mild transaminitis, at baseline Pt asymptomatic No need for emergent inpatient phlebotomy, should establish phlebotomy outpatient Consider hematology consult if want to establish care prior to discharge Needs to follow with PCP and/or hematology outpatient Mild intermittent asthma Not in acute exacerbation, previously not inhalers Continue rescue albuterol inhaler Arthritis Acetaminophen Bilateral hearing loss Worsening x2 years Follow up outpatient with audiology Given benign HPI/ROS and physical exam, there are no acute medical conditions requiring additional treatment and workup at this time. There are no medical contraindications preventing patient's transfer to [facility].
[2024-04-29] MEDS: hydrOXYzine HCL 25 MG TABLET PO (16:59)
[2024-04-29 20:00] VITALS: BP 125/59; PULSE 74; TEMP 36.4; O2SAT 94
[2024-04-29] MEDS: Melatonin 3 MG TABLET 6 MG PO (21:37)
[2024-04-29] MEDS: QUEtiapine Fumarate 25 MG TABLET 75 MG PO (21:37)
[2024-04-29] MEDS: Diphth,Pertus(ACell),Tet Adult 0.5 ML SYRINGE IM (22:34)
[2024-04-30] MEDS: Acetaminophen 325 MG TABLET 650 MG PO (07:21)
[2024-04-30 07:59] VITALS: BP 114/66; PULSE 81; TEMP 36.4; O2SAT 94
[2024-04-30 08:22] VITALS: PULSE 73; O2SAT 95
[2024-04-30] MEDS: Ibuprofen 600 MG TABLET PO (08:50)
[2024-04-30] MEDS: Famotidine 20 MG TABLET PO ×2 (08:51→22:02)
[2024-04-30] MEDS: Divalproex Sodium 250 MG TABLET.DR PO ×2 (08:51→22:02)
[2024-04-30] MEDS: amLODIPine Besylate 2.5 MG TABLET 7.5 MG PO (08:51)
[2024-04-30] MEDS: Aspirin 81 MG TAB.CHEW PO (08:51)
[2024-04-30] MEDS: Folic Acid 1 MG TABLET PO (08:51)
[2024-04-30] MEDS: Loratadine 10 MG TABLET PO (08:51)
[2024-04-30] MEDS: Multivitamin TABLET 1 TAB PO (08:51)
[2024-04-30] MEDS: Sertraline HCL 25 MG TABLET PO (08:51)
[2024-04-30] MEDS: Lidocaine 4 % Patch ADH..PATCH 1 PATCH TRANSDERMA (08:52)
[2024-04-30 09:10] LABS: MANUAL DIFF FLAG NO
[2024-04-30 09:14] LABS: Basophils Absolute Auto 0.1 X10*3/uL (0.0-0.2); Basophils Percent Auto 1.4 % (0-2); Eosinophils Absolute Auto 0.6 X10*3/uL (0.0-0.4); Eosinophils Percent Auto 9.2 % (0-4); Hematocrit 40.1 % (42.0-52.0); Hemoglobin 14.1 g/dl (14.0-18.0); Imm Gran Abs Auto 0.07 X10*3/uL (0.00-0.03); Imm Gran Pct Auto 1.1 % (0.0-0.4); Lymphocytes Absolute Auto 1.7 X10*3/uL (1.2-4.9); Lymphocytes Percent Auto 26.1 % (20-40); Mean Corpuscular HGB Conc 35.2 g/dl (31.0-36.0); Mean Corpuscular Hemoglobin 34.4 pg (27.0-33.0); Mean Corpuscular Volume 97.8 fL (80.0-98.0); Mean Platelet Volume 10.2 fL (9.4-12.4); Monocytes Percent Auto 15.7 % (2-11); Neutrophils Absolute Auto 2.9 x10*3/uL (2.0-8.3); Neutrophils Percent Auto 46.5 % (45-73); Platelet Count 218 X10*3/uL (160-400); Red Cell Distribution Width 14.3 % (11.0-16.0); White Blood Count 6.3 X10*3/uL (4.8-10.8)
[2024-04-30 09:27] LABS: Valproate 34.8 mcg/mL (50.0-100.0)
[2024-04-30 09:33] LABS: Alanine Aminotransferase 85 U/L (0-40); Albumin Level 3.9 g/dL (3.5-5.0); Alkaline Phosphatase 104 U/L (39-117); Anion Gap 12 (12-20); Aspartate Amino Transferase 61 U/L (5-37); Bilirubin Total 0.7 mg/dL (0.0-1.0); Blood Urea Nitrogen 21 mg/dL (9-16); Calcium 9.7 mg/dL (8.4-10.2); Carbon Dioxide 29 mmol/L (22-29); Chloride 105 mmol/L (96-108); Estimated Glomerular Filt Rate > 60; Glucose Fasting 94 mg/dL (60-99); Potassium 4.2 mmol/L (3.3-5.1); Sodium 142 mmol/L (135-145); Total Protein 6.7 g/dL (6.5-8.0)
[2024-04-30] MEDS: Albuterol Sulfate 90 MCG 8 GM INHALER 2 PUFF INHALE (11:53)
[2024-04-30 12:45] LABS: Ferritin 1457 ng/mL (20-250)
--- NOTE | 2024-04-30 12:46 | P.PNPSI_ITS ---
Subjective Subjective Date of Service: 04/30/24 Reason For Visit: f32.A Subjective Notes: Conditional Voluntary Healthcare Proxy: No Guardianship: No Medical Problems Affecting Mental Status: No Interim History: Denies SI/HI/AH/VH Satisfied with plan of care Denies med SE, reports efficacy of regime. Agrees to ENT consult for appropriate hearing aides. Medication Compliance: Yes Side effects from medications: No Attending Groups: Intermittent Review of Systems hearing loss Medical Review of Systems: unchanged Mental Status Exam Mental Status Exam Patient Appearance: Appropriate Patient Orientation: Person, Place, Time and Situation Level of Consciousness: Alert Patient Behavior: Talkative and Good Eye Contact Mood Description: Appropriate Affect Description: Appropriate Patient Cognition Impaired: No Ability to Follow Directions: Good Speech Pattern: Spontaneous Speech Hallucinations: None Delusions: Not Present Perceptual Disturbances: Depersonalization Thought Content: positive for Perseveration Judgement: Good Diagnostics Vital Signs (24Hr): Vital Signs - 24 hr 04/29/24 20:00 04/30/24 07:59 04/30/24 08:22 Temperature 97.5 F 97.6 F Pulse Rate 74 81 73 Blood Pressure 125/59 L 114/66 Pulse Oximetry 94 94 95 Oxygen Delivery Method Room Air Room Air Room Air BMI result Body Mass Index 30.7 Labs 04/30/24 08:46 04/30/24 08:46 Labs: Laboratory Results - last 48 hr 04/29/24 04/30/24 10:40 08:46 WBC 6.3 RBC 4.10 L Hgb 14.1 Hct 40.1 L MCV 97.8 MCH 34.4 H MCHC 35.2 RDW 14.3 Plt Count 218 MPV 10.2 Immature Gran % (Auto) 1.1 H Neut % (Auto) 46.5 Lymph % (Auto) 26.1 [place] % (Auto) 15.7 H Eos % (Auto) 9.2 H Baso % (Auto) 1.4 Lymph # (Auto) 1.7 [place] # (Auto) 1.0 Eos # (Auto) 0.6 H Baso # (Auto) 0.1 Abs Immat Gran (auto) 0.07 H Absolute Neuts (auto) 2.9 Absolute Nucleated RBC 0.000 Nucleated RBC % (auto) 0.0 Sodium 142 Potassium 4.2 Chloride 105 Carbon Dioxide 29 Anion Gap 12 BUN 21 H Creatinine 0.68 Estim Creat Clear Calc 92.0 Estimated GFR > 60 Fasting Glucose 94 Calcium 9.7 Ferritin 1457 H Total Bilirubin 0.7 AST 61 H ALT 85 H Alkaline Phosphatase 104 Total Protein 6.7 Albumin 3.9 Valproic Acid 34.8 L Hepatitis A IgM Ab Nonreactive Hep Bs Antigen Negative Hep Bs Antibody NONREACTIVE Hep B Core Total Ab Nonreactive Hepatitis C Ab (EIA) Nonreactive Imaging Radiology Impressions: ITS Impressions Shoulder X-Ray 04/03/24 00:35 IMPRESSION: No acute abnormalities. Electronically signed by: Jigar Benjamin MD 04/03/2024 07:30 AM EDT RP Chest X-Ray 04/13/24 19:10 IMPRESSION: Asymmetric elevation of the right hemidiaphragm with mild subsegmental atelectasis in the right lower lung. Electronically signed by: Keyanna Olea MD 04/13/2024 08:56 PM EDT RP Head CT 04/15/24 18:47 IMPRESSION: 1. No acute intracranial pathology. 2. Mild chronic microangiopathic ischemic changes. Electronically signed by: Yanci Ramirez MD 04/15/2024 11:23 PM EDT RP Cervical Spine CT 04/21/24 10:45 IMPRESSION: Multilevel spondylosis without acute fracture or trauma-related listhesis. Thyroglossal duct cyst, infrahyoid. . Electronically signed by: Florencio Carrillo MD 04/21/2024 12:02 PM EDT RP Head CT 04/21/24 10:45 IMPRESSION: No acute fracture, bony calvarium. No acute intracranial hemorrhage. Small vessel occlusive disease. Superimposed acute stroke/nonhemorrhagic ischemia cannot be excluded. Polypoid paranasal sinus disease. Blood products versus fungal infection, paranasal sinuses. Electronically signed by: Florencio Carrillo MD 04/21/2024 11:35 AM EDT RP Hip X-Ray 04/21/24 10:50 IMPRESSION: No acute fracture seen. Slight superior left hip joint space narrowing. Electronically signed by: Rocco Vila MD 04/21/2024 04:18 PM EDT RP Medications Medications Current Medications Acetaminophen (Acetaminophen 325 Mg Tablet) 650 mg PO Q6H PRN PRN Reason: Headache/Pain Mild Scale (1-3) Last Admin: 04/30/24 07:21 Dose: 650 mg Al Hydroxide/Mg Hydroxide (Magnesium Hydrox/Alum Hydrox 30 Ml Oral.Susp) 30 ml PO Q6H PRN PRN Reason: Heartburn/Nausea Last Admin: 04/29/24 11:24 Dose: 30 ml Albuterol Sulfate (Albuterol Sulfate 90 Mcg 8 Gm Inhaler) 2 puff INHALE RQ4H PRN PRN Reason: Shortness of Breath Last Admin: 04/30/24 11:53 Dose: 2 puff Amlodipine Besylate (Amlodipine Besylate 2.5 Mg Tablet) 7.5 mg PO DAILY [facility]; Protocol Last Admin: 04/30/24 08:51 Dose: 7.5 mg Aspirin (Aspirin 81 Mg Tab.Chew) 81 mg PO DAILY [facility] Last Admin: 04/30/24 08:51 Dose: 81 mg Divalproex Sodium (Divalproex Sodium 250 Mg Tablet.Dr) 250 mg PO BID [facility] Last Admin: 04/30/24 08:51 Dose: 250 mg Famotidine (Famotidine 20 Mg Tablet) 20 mg PO BID [facility] Last Admin: 04/30/24 08:51 Dose: 20 mg Folic Acid (Folic Acid 1 Mg Tablet) 1 mg PO DAILY [facility] Last Admin: 04/30/24 08:51 Dose: 1 mg Hydrocortisone (Hydrocortisone 1 % Cream 28.35 Gm Tube) 1 appl TOPICAL BID PRN; Protocol PRN Reason: ankle rash Hydroxyzine HCl (Hydroxyzine Hcl 25 Mg Tablet) 25 mg PO Q6H PRN PRN Reason: Anxiety Last Admin: 04/29/24 16:59 Dose: 25 mg Ibuprofen (Ibuprofen 600 Mg Tablet) 600 mg PO Q6H PRN PRN Reason: moderate pain Last Admin: 04/30/24 08:50 Dose: 600 mg Lidocaine (Lidocaine 4 % Patch Adh..Patch) 1 patch TRANSDERMA DAILY [facility]; Protocol Last Admin: 04/30/24 08:52 Dose: 1 patch Loratadine (Loratadine 10 Mg Tablet) 10 mg PO DAILY [facility] Last Admin: 04/30/24 08:51 Dose: 10 mg Magnesium Hydroxide (Milk Of Magnesia 30 Ml Oral.Susp) 30 ml PO DAILY PRN PRN Reason: Constipation Last Admin: 04/11/24 08:39 Dose: 30 ml Melatonin (Melatonin 3 Mg Tablet) 6 mg PO BEDTIME CASSI Last Admin: 04/29/24 21:37 Dose: 6 mg Multivitamins/Vitamin C (Multivitamin Tablet) 1 tab PO DAILY [facility] Last Admin: 04/30/24 08:51 Dose: 1 tab Nicotine Polacrilex (Nicotine Polacrilex 2 Mg Gum) 2 mg BUCCAL Q2H PRN PRN Reason: Nicotine Cravings Olanzapine (Olanzapine 5 Mg Tablet) 5 mg PO Q4H PRN PRN Reason: AH or agitiation Last Admin: 04/27/24 19:00 Dose: 5 mg Ondansetron HCl (Ondansetron Odt 4 Mg Tab.Rapdis) 4 mg TRANSLINGU Q6H PRN PRN Reason: Nausea and Vomiting Last Admin: 04/27/24 12:56 Dose: 4 mg Quetiapine Fumarate (Quetiapine Fumarate 25 Mg Tablet) 75 mg PO BEDTIME [facility] Last Admin: 04/29/24 21:37 Dose: 75 mg Sertraline HCl (Sertraline Hcl 25 Mg Tablet) 25 mg PO DAILY [facility] Last Admin: 04/30/24 08:51 Dose: 25 mg Sodium Chloride (Sodium Chloride 0.65 % Nasal 44 Ml Sprbtl) 1 spray NOSTRIL-B Q1H PRN PRN Reason: Shortness of Breath/Wheezing Last Admin: 04/28/24 16:00 Dose: 1 spray Trazodone HCl (Trazodone Hcl 50 Mg Tablet) 50 mg PO BEDTIME MRX1 PRN PRN Reason: Insomnia Last Admin: 04/28/24 20:45 Dose: 50 mg Trolamine Salicylate (Trolamine Salicylate 10 % Cream 141 Gm Tube) 1 appl TOPICAL BID PRN; Protocol PRN Reason: hip pain Last Admin: 04/26/24 10:17 Dose: 1 appl Allergies Allergies Allergy/AdvReac Type Severity Reaction Status Date / Time No Known Allergies Allergy Verified 03/31/24 03:15 Assessment & Plan Assessment & Plan (1) MDD (major depressive disorder), recurrent episode: Status: Acute Code(s): F33.9 - Major depressive disorder, recurrent, unspecified Assessment and Plan: 04/30/24- Continue tx. Plan Patient is a 63-year-old male with a PMH significant for hemochromatosis, arthritis, asthma, hard of hearing, left eye blindness, and depression who was admitted to [facility] for increasing depression with SI and HI. Patient has tentatively been accepted to [facility]. Hospitalist consult for medical clearance for discharge. Patient has no acute medical complaints at this time. Mood disorder Plan as per Psychiatry ?Hemochromatosis Patient reports history of hemochromatosis, unclear where or by whom Patient does not follow with Hematology, unclear if ever sought treatment Iron elevated 180, TIBC low at 205, iron saturation elevated at 88%, ferritin Mild transaminitis, at baseline Pt asymptomatic Needs to follow up outpatient with PCP and/or Hematology for additional workup, monitoring, and potential treatment (regular phlebotomy) Mild intermittent asthma Not in acute exacerbation, previously not inhalers Continue rescue albuterol inhaler Arthritis Acetaminophen Bilateral hearing loss Worsening x2 years Follow up outpatient with audiology Given benign HPI/ROS and physical exam, there are no acute medical conditions requiring additional treatment and workup at this time. There are no medical contraindications preventing patient's transfer to [facility]. Reason for continued inpatient stay Substantial Risk for: rapid decompensation Time Spent With Patient Time: Total time managing care of this patient today ____ minutes.
[2024-04-30 12:49] LABS: Herpes Simplex Type 1 IgG 1.04 index; Herpes Simplex Type 2 IgG <0.90 index
[2024-04-30] MEDS: OLANZapine 5 MG TABLET PO (16:58)
[2024-04-30 20:00] VITALS: BP 128/73; PULSE 67; RESP 16; TEMP 36.1; O2SAT 98
[2024-04-30 21:19] LABS: Varicella IgG Antibody 7.77 S/CO
[2024-04-30] MEDS: Melatonin 3 MG TABLET 6 MG PO (22:02)
[2024-04-30] MEDS: QUEtiapine Fumarate 25 MG TABLET 75 MG PO (22:02)
[2024-05-01] MEDS: Ibuprofen 600 MG TABLET PO ×2 (06:05→18:38)
[2024-05-01] MEDS: Albuterol Sulfate 90 MCG 8 GM INHALER 2 PUFF INHALE (08:04)
[2024-05-01 08:42] VITALS: BP 113/65; PULSE 67; TEMP 36.4; O2SAT 95
--- NOTE | 2024-05-01 08:42 | HO.PSYCHPN ---
Subjective Subjective Date of Service: 05/01/24 Reason For Visit: f32.A Interim History: Met with patient; discussed with team; reviewed chart Resting comfortably on approach. Says he is okay and denies any requests or complaints. No change in presentation Mental Status Exam Mental Status Exam Patient Appearance: Appropriate Patient Orientation: Person, Place, Time and Situation Level of Consciousness: Alert Patient Behavior: Talkative and Good Eye Contact Mood Description: Appropriate Affect Description: Appropriate Patient Cognition Impaired: No Ability to Follow Directions: Good Speech Pattern: Spontaneous Speech Hallucinations: None Delusions: Not Present Perceptual Disturbances: Depersonalization Thought Content: positive for Perseveration Judgement: Good Diagnostics Vital Signs (24Hr): Vital Signs - 24 hr 04/30/24 20:00 Temperature 97.0 F Pulse Rate 67 Respiratory Rate 16 Blood Pressure 128/73 Pulse Oximetry 98 Oxygen Delivery Method Room Air BMI result Body Mass Index 30.7 Labs 04/30/24 08:46 04/30/24 08:46 Labs: Laboratory Results - last 48 hr 04/29/24 04/30/24 10:40 08:46 WBC 6.3 RBC 4.10 L Hgb 14.1 Hct 40.1 L MCV 97.8 MCH 34.4 H MCHC 35.2 RDW 14.3 Plt Count 218 MPV 10.2 Immature Gran % (Auto) 1.1 H Neut % (Auto) 46.5 Lymph % (Auto) 26.1 [place] % (Auto) 15.7 H Eos % (Auto) 9.2 H Baso % (Auto) 1.4 Lymph # (Auto) 1.7 [place] # (Auto) 1.0 Eos # (Auto) 0.6 H Baso # (Auto) 0.1 Abs Immat Gran (auto) 0.07 H Absolute Neuts (auto) 2.9 Absolute Nucleated RBC 0.000 Nucleated RBC % (auto) 0.0 Sodium 142 Potassium 4.2 Chloride 105 Carbon Dioxide 29 Anion Gap 12 BUN 21 H Creatinine 0.68 Estim Creat Clear Calc 92.0 Estimated GFR > 60 Fasting Glucose 94 Calcium 9.7 Ferritin 1457 H Total Bilirubin 0.7 AST 61 H ALT 85 H Alkaline Phosphatase 104 Total Protein 6.7 Albumin 3.9 Valproic Acid 34.8 L Hepatitis A IgM Ab Nonreactive Hep Bs Antigen Negative Hep Bs Antibody NONREACTIVE Hep B Core Total Ab Nonreactive Hepatitis C Ab (EIA) Nonreactive HSV I IgG Ab 1.04 H HSV II IgG <0.90 VZV IgG Antibody 7.77 Imaging Radiology Impressions: ITS Impressions Shoulder X-Ray 04/03/24 00:35 IMPRESSION: No acute abnormalities. Electronically signed by: Jigar Benjamin MD 04/03/2024 07:30 AM EDT RP Chest X-Ray 04/13/24 19:10 IMPRESSION: Asymmetric elevation of the right hemidiaphragm with mild subsegmental atelectasis in the right lower lung. Electronically signed by: Keyanna Olea MD 04/13/2024 08:56 PM EDT RP Head CT 04/15/24 18:47 IMPRESSION: 1. No acute intracranial pathology. 2. Mild chronic microangiopathic ischemic changes. Electronically signed by: Yanci Ramirez MD 04/15/2024 11:23 PM EDT RP Cervical Spine CT 04/21/24 10:45 IMPRESSION: Multilevel spondylosis without acute fracture or trauma-related listhesis. Thyroglossal duct cyst, infrahyoid. . Electronically signed by: Florencio Carrillo MD 04/21/2024 12:02 PM EDT RP Head CT 04/21/24 10:45 IMPRESSION: No acute fracture, bony calvarium. No acute intracranial hemorrhage. Small vessel occlusive disease. Superimposed acute stroke/nonhemorrhagic ischemia cannot be excluded. Polypoid paranasal sinus disease. Blood products versus fungal infection, paranasal sinuses. Electronically signed by: Florencio Carrillo MD 04/21/2024 11:35 AM EDT RP Hip X-Ray 04/21/24 10:50 IMPRESSION: No acute fracture seen. Slight superior left hip joint space narrowing. Electronically signed by: Rocco Vila MD 04/21/2024 04:18 PM EDT RP Medications Medications Current Medications Acetaminophen (Acetaminophen 325 Mg Tablet) 650 mg PO Q6H PRN PRN Reason: Headache/Pain Mild Scale (1-3) Last Admin: 04/30/24 07:21 Dose: 650 mg Al Hydroxide/Mg Hydroxide (Magnesium Hydrox/Alum Hydrox 30 Ml Oral.Susp) 30 ml PO Q6H PRN PRN Reason: Heartburn/Nausea Last Admin: 04/29/24 11:24 Dose: 30 ml Albuterol Sulfate (Albuterol Sulfate 90 Mcg 8 Gm Inhaler) 2 puff INHALE RQ4H PRN PRN Reason: Shortness of Breath Last Admin: 05/01/24 08:04 Dose: 2 puff Amlodipine Besylate (Amlodipine Besylate 2.5 Mg Tablet) 7.5 mg PO DAILY [facility]; Protocol Last Admin: 04/30/24 08:51 Dose: 7.5 mg Aspirin (Aspirin 81 Mg Tab.Chew) 81 mg PO DAILY [facility] Last Admin: 04/30/24 08:51 Dose: 81 mg Divalproex Sodium (Divalproex Sodium 250 Mg Tablet.Dr) 250 mg PO BID [facility] Last Admin: 04/30/24 22:02 Dose: 250 mg Famotidine (Famotidine 20 Mg Tablet) 20 mg PO BID [facility] Last Admin: 04/30/24 22:02 Dose: 20 mg Folic Acid (Folic Acid 1 Mg Tablet) 1 mg PO DAILY [facility] Last Admin: 04/30/24 08:51 Dose: 1 mg Hydrocortisone (Hydrocortisone 1 % Cream 28.35 Gm Tube) 1 appl TOPICAL BID PRN; Protocol PRN Reason: ankle rash Hydroxyzine HCl (Hydroxyzine Hcl 25 Mg Tablet) 25 mg PO Q6H PRN PRN Reason: Anxiety Last Admin: 04/29/24 16:59 Dose: 25 mg Ibuprofen (Ibuprofen 600 Mg Tablet) 600 mg PO Q6H PRN PRN Reason: moderate pain Last Admin: 05/01/24 06:05 Dose: 600 mg Lidocaine (Lidocaine 4 % Patch Adh..Patch) 1 patch TRANSDERMA DAILY [facility]; Protocol Last Admin: 04/30/24 08:52 Dose: 1 patch Loratadine (Loratadine 10 Mg Tablet) 10 mg PO DAILY [facility] Last Admin: 04/30/24 08:51 Dose: 10 mg Magnesium Hydroxide (Milk Of Magnesia 30 Ml Oral.Susp) 30 ml PO DAILY PRN PRN Reason: Constipation Last Admin: 04/11/24 08:39 Dose: 30 ml Melatonin (Melatonin 3 Mg Tablet) 6 mg PO BEDTIME [facility] Last Admin: 04/30/24 22:02 Dose: 6 mg Multivitamins/Vitamin C (Multivitamin Tablet) 1 tab PO DAILY [facility] Last Admin: 04/30/24 08:51 Dose: 1 tab Nicotine Polacrilex (Nicotine Polacrilex 2 Mg Gum) 2 mg BUCCAL Q2H PRN PRN Reason: Nicotine Cravings Olanzapine (Olanzapine 5 Mg Tablet) 5 mg PO Q4H PRN PRN Reason: AH or agitiation Last Admin: 04/30/24 16:58 Dose: 5 mg Ondansetron HCl (Ondansetron Odt 4 Mg Tab.Rapdis) 4 mg TRANSLINGU Q6H PRN PRN Reason: Nausea and Vomiting Last Admin: 04/27/24 12:56 Dose: 4 mg Quetiapine Fumarate (Quetiapine Fumarate 25 Mg Tablet) 75 mg PO BEDTIME [facility] Last Admin: 04/30/24 22:02 Dose: 75 mg Sertraline HCl (Sertraline Hcl 25 Mg Tablet) 25 mg PO DAILY [facility] Last Admin: 04/30/24 08:51 Dose: 25 mg Sodium Chloride (Sodium Chloride 0.65 % Nasal 44 Ml Sprbtl) 1 spray NOSTRIL-B Q1H PRN PRN Reason: Shortness of Breath/Wheezing Last Admin: 04/28/24 16:00 Dose: 1 spray Trazodone HCl (Trazodone Hcl 50 Mg Tablet) 50 mg PO BEDTIME MRX1 PRN PRN Reason: Insomnia Last Admin: 04/28/24 20:45 Dose: 50 mg Trolamine Salicylate (Trolamine Salicylate 10 % Cream 141 Gm Tube) 1 appl TOPICAL BID PRN; Protocol PRN Reason: hip pain Last Admin: 04/26/24 10:17 Dose: 1 appl Allergies Allergies Allergy/AdvReac Type Severity Reaction Status Date / Time No Known Allergies Allergy Verified 03/31/24 03:15 Assessment & Plan Assessment & Plan (1) MDD (major depressive disorder), recurrent episode: Status: Acute Code(s): F33.9 - Major depressive disorder, recurrent, unspecified Assessment and Plan: 04/30/24- Continue tx. Plan Hospital course: 05/01 continue treatment plan Patient is a 63-year-old male with a PMH significant for hemochromatosis, arthritis, asthma, hard of hearing, left eye blindness, and depression who was admitted to Psychiatric unit for increasing depression with SI and HI. Patient has tentatively been accepted to [facility]. Hospitalist consult for medical clearance for discharge. Patient has no acute medical complaints at this time. Mood disorder Plan as per Psychiatry ?Hemochromatosis Patient reports history of hemochromatosis, unclear where or by whom Patient does not follow with Hematology, unclear if ever sought treatment Iron elevated 180, TIBC low at 205, iron saturation elevated at 88%, ferritin Mild transaminitis, at baseline Pt asymptomatic Needs to follow up outpatient with PCP and/or Hematology for additional workup, monitoring, and potential treatment (regular phlebotomy) Mild intermittent asthma Not in acute exacerbation, previously not inhalers Continue rescue albuterol inhaler Arthritis Acetaminophen Bilateral hearing loss Worsening x2 years Follow up outpatient with audiology Given benign HPI/ROS and physical exam, there are no acute medical conditions requiring additional treatment and workup at this time. There are no medical contraindications preventing [facility]. Patient educated on: diagnosis Informed Consent: understands Reason for continued inpatient stay Substantial Risk for: rapid decompensation Time Spent With Patient Time: Total time managing care of this patient today ____ minutes.
[2024-05-01] MEDS: Lidocaine 4 % Patch ADH..PATCH 1 PATCH TRANSDERMA (09:29)
[2024-05-01] MEDS: Sertraline HCL 25 MG TABLET PO (09:30)
[2024-05-01] MEDS: Divalproex Sodium 250 MG TABLET.DR PO (09:30)
[2024-05-01 09:31] VITALS: BP 138/70
[2024-05-01] MEDS: amLODIPine Besylate 2.5 MG TABLET 7.5 MG PO (09:31)
[2024-05-01] MEDS: Folic Acid 1 MG TABLET PO (09:31)
[2024-05-01] MEDS: Aspirin 81 MG TAB.CHEW PO (09:31)
[2024-05-01] MEDS: Loratadine 10 MG TABLET PO (09:31)
[2024-05-01] MEDS: Famotidine 20 MG TABLET PO (09:31)
[2024-05-01] MEDS: Multivitamin TABLET 1 TAB PO (09:33)
[2024-05-01] MEDS: OLANZapine 5 MG TABLET PO (15:51)
[2024-05-01 20:00] VITALS: BP 118/66; PULSE 79; RESP 14; TEMP 36.4; O2SAT 96
[2024-05-02] MEDS: traZODone HCL 50 MG TABLET PO ×2 (00:36→20:59)
[2024-05-02] MEDS: Divalproex Sodium 250 MG TABLET.DR PO ×3 (00:36→20:59)
[2024-05-02] MEDS: Melatonin 3 MG TABLET 6 MG PO ×2 (00:36→20:59)
[2024-05-02] MEDS: QUEtiapine Fumarate 25 MG TABLET 75 MG PO ×2 (00:36→20:58)
[2024-05-02] MEDS: Famotidine 20 MG TABLET PO ×3 (00:37→20:59)
[2024-05-02] MEDS: Ibuprofen 600 MG TABLET PO ×3 (00:38→20:58)
[2024-05-02] MEDS: Acetaminophen 325 MG TABLET 650 MG PO ×2 (06:47→14:03)
[2024-05-02 08:05] VITALS: BP 128/62; PULSE 73; TEMP 36.4; O2SAT 96
[2024-05-02] MEDS: Lidocaine 4 % Patch ADH..PATCH 1 PATCH TRANSDERMA (08:37)
[2024-05-02] MEDS: Loratadine 10 MG TABLET PO (08:37)
[2024-05-02] MEDS: Aspirin 81 MG TAB.CHEW PO (08:37)
[2024-05-02] MEDS: Multivitamin TABLET 1 TAB PO (08:38)
[2024-05-02] MEDS: Sertraline HCL 25 MG TABLET PO (08:38)
[2024-05-02] MEDS: amLODIPine Besylate 2.5 MG TABLET 7.5 MG PO (08:38)
[2024-05-02] MEDS: Folic Acid 1 MG TABLET PO (08:38)
[2024-05-02] MEDS: Sodium Chloride 0.65 % Nasal 44 ML SPRBTL 1 SPRAY NOSTRIL-B (08:38)
--- NOTE | 2024-05-02 10:31 | HO.PSYCHPN ---
Subjective Subjective Date of Service: 05/02/24 Reason For Visit: f32.A Interim History: Met with patient; discussed with team Patient reports that he is doing okay, no complaints or requests. Casually joking with staff Mental Status Exam Mental Status Exam Patient Appearance: Appropriate Patient Orientation: Person, Place, Time and Situation Level of Consciousness: Alert Patient Behavior: Talkative and Good Eye Contact Mood Description: Appropriate Affect Description: Appropriate Patient Cognition Impaired: No Ability to Follow Directions: Good Speech Pattern: Spontaneous Speech Hallucinations: None Delusions: Not Present Perceptual Disturbances: Depersonalization Thought Content: positive for Perseveration Judgement: Good Diagnostics Vital Signs (24Hr): Vital Signs - 24 hr 05/01/24 20:00 05/02/24 08:05 Temperature 97.6 F 97.5 F Pulse Rate 79 73 Respiratory Rate 14 Blood Pressure 118/66 128/62 Pulse Oximetry 96 96 Oxygen Delivery Method Room Air Room Air BMI result Body Mass Index 30.7 Labs 04/30/24 08:46 04/30/24 08:46 Labs: Laboratory Results - last 48 hr 04/29/24 04/30/24 10:40 08:46 Ferritin 1457 H HSV I IgG Ab 1.04 H HSV II IgG <0.90 VZV IgG Antibody 7.77 Imaging Radiology Impressions: ITS Impressions Shoulder X-Ray 04/03/24 00:35 IMPRESSION: No acute abnormalities. Electronically signed by: Jigar Benjamin MD 04/03/2024 07:30 AM EDT RP Chest X-Ray 04/13/24 19:10 IMPRESSION: Asymmetric elevation of the right hemidiaphragm with mild subsegmental atelectasis in the right lower lung. Electronically signed by: Keyanna Olea MD 04/13/2024 08:56 PM EDT RP Head CT 04/15/24 18:47 IMPRESSION: 1. No acute intracranial pathology. 2. Mild chronic microangiopathic ischemic changes. Electronically signed by: Yanci Ramirez MD 04/15/2024 11:23 PM EDT RP Cervical Spine CT 04/21/24 10:45 IMPRESSION: Multilevel spondylosis without acute fracture or trauma-related listhesis. Thyroglossal duct cyst, infrahyoid. . Electronically signed by: Florencio Carrillo MD 04/21/2024 12:02 PM EDT RP Head CT 04/21/24 10:45 IMPRESSION: No acute fracture, bony calvarium. No acute intracranial hemorrhage. Small vessel occlusive disease. Superimposed acute stroke/nonhemorrhagic ischemia cannot be excluded. Polypoid paranasal sinus disease. Blood products versus fungal infection, paranasal sinuses. Electronically signed by: Florencio Carrillo MD 04/21/2024 11:35 AM EDT RP Hip X-Ray 04/21/24 10:50 IMPRESSION: No acute fracture seen. Slight superior left hip joint space narrowing. Electronically signed by: Rocco Vila MD 04/21/2024 04:18 PM EDT RP Medications Medications Current Medications Acetaminophen (Acetaminophen 325 Mg Tablet) 650 mg PO Q6H PRN PRN Reason: Headache/Pain Mild Scale (1-3) Last Admin: 05/02/24 06:47 Dose: 650 mg Al Hydroxide/Mg Hydroxide (Magnesium Hydrox/Alum Hydrox 30 Ml Oral.Susp) 30 ml PO Q6H PRN PRN Reason: Heartburn/Nausea Last Admin: 04/29/24 11:24 Dose: 30 ml Albuterol Sulfate (Albuterol Sulfate 90 Mcg 8 Gm Inhaler) 2 puff INHALE RQ4H PRN PRN Reason: Shortness of Breath Last Admin: 05/01/24 08:04 Dose: 2 puff Amlodipine Besylate (Amlodipine Besylate 2.5 Mg Tablet) 7.5 mg PO DAILY [facility]; Protocol Last Admin: 05/02/24 08:38 Dose: 7.5 mg Aspirin (Aspirin 81 Mg Tab.Chew) 81 mg PO DAILY [facility] Last Admin: 05/02/24 08:37 Dose: 81 mg Divalproex Sodium (Divalproex Sodium 250 Mg Tablet.Dr) 250 mg PO BID [facility] Last Admin: 05/02/24 08:37 Dose: 250 mg Famotidine (Famotidine 20 Mg Tablet) 20 mg PO BID [facility] Last Admin: 05/02/24 08:37 Dose: 20 mg Folic Acid (Folic Acid 1 Mg Tablet) 1 mg PO DAILY [facility] Last Admin: 05/02/24 08:38 Dose: 1 mg Hydrocortisone (Hydrocortisone 1 % Cream 28.35 Gm Tube) 1 appl TOPICAL BID PRN; Protocol PRN Reason: ankle rash Hydroxyzine HCl (Hydroxyzine Hcl 25 Mg Tablet) 25 mg PO Q6H PRN PRN Reason: Anxiety Last Admin: 04/29/24 16:59 Dose: 25 mg Ibuprofen (Ibuprofen 600 Mg Tablet) 600 mg PO Q6H PRN PRN Reason: moderate pain Last Admin: 05/02/24 09:47 Dose: 600 mg Lidocaine (Lidocaine 4 % Patch Adh..Patch) 1 patch TRANSDERMA DAILY [facility]; Protocol Last Admin: 05/02/24 08:37 Dose: 1 patch Loratadine (Loratadine 10 Mg Tablet) 10 mg PO DAILY [facility] Last Admin: 05/02/24 08:37 Dose: 10 mg Magnesium Hydroxide (Milk Of Magnesia 30 Ml Oral.Susp) 30 ml PO DAILY PRN PRN Reason: Constipation Last Admin: 04/11/24 08:39 Dose: 30 ml Melatonin (Melatonin 3 Mg Tablet) 6 mg PO BEDTIME [facility] Last Admin: 05/02/24 00:36 Dose: 6 mg Multivitamins/Vitamin C (Multivitamin Tablet) 1 tab PO DAILY [facility] Last Admin: 05/02/24 08:38 Dose: 1 tab Nicotine Polacrilex (Nicotine Polacrilex 2 Mg Gum) 2 mg BUCCAL Q2H PRN PRN Reason: Nicotine Cravings Olanzapine (Olanzapine 5 Mg Tablet) 5 mg PO Q4H PRN PRN Reason: AH or agitiation Last Admin: 05/01/24 15:51 Dose: 5 mg Ondansetron HCl (Ondansetron Odt 4 Mg Tab.Rapdis) 4 mg TRANSLINGU Q6H PRN PRN Reason: Nausea and Vomiting Last Admin: 04/27/24 12:56 Dose: 4 mg Quetiapine Fumarate (Quetiapine Fumarate 25 Mg Tablet) 75 mg PO BEDTIME [facility] Last Admin: 05/02/24 00:36 Dose: 75 mg Sertraline HCl (Sertraline Hcl 25 Mg Tablet) 25 mg PO DAILY [facility] Last Admin: 05/02/24 08:38 Dose: 25 mg Sodium Chloride (Sodium Chloride 0.65 % Nasal 44 Ml Sprbtl) 1 spray NOSTRIL-B Q1H PRN PRN Reason: Shortness of Breath/Wheezing Last Admin: 05/02/24 08:38 Dose: 1 spray Trazodone HCl (Trazodone Hcl 50 Mg Tablet) 50 mg PO BEDTIME MRX1 PRN PRN Reason: Insomnia Last Admin: 05/02/24 00:36 Dose: 50 mg Trolamine Salicylate (Trolamine Salicylate 10 % Cream 141 Gm Tube) 1 appl TOPICAL BID PRN; Protocol PRN Reason: hip pain Last Admin: 04/26/24 10:17 Dose: 1 appl Allergies Allergies Allergy/AdvReac Type Severity Reaction Status Date / Time No Known Allergies Allergy Verified 03/31/24 03:15 Assessment & Plan Assessment & Plan (1) MDD (major depressive disorder), recurrent episode: Status: Acute Code(s): F33.9 - Major depressive disorder, recurrent, unspecified Assessment and Plan: 04/30/24- Continue tx. Plan Hospital course: 05/01 continue treatment plan 05/02 continue treatment plan Patient is a 63-year-old male with a PMH significant for hemochromatosis, arthritis, asthma, hard of hearing, left eye blindness, and depression who was admitted to [facility] Psych[facility] unit for increasing depression with SI and HI. Patient has tentatively been accepted to [facility]. Hospitalist consult for medical clearance for discharge. Patient has no acute medical complaints at this time. Mood disorder Plan as per Psychiatry ?Hemochromatosis Patient reports history of hemochromatosis, unclear where or by whom Patient does not follow with Hematology, unclear if ever sought treatment Iron elevated 180, TIBC low at 205, iron saturation elevated at 88%, ferritin Mild transaminitis, at baseline Pt asymptomatic Needs to follow up outpatient with PCP and/or Hematology for additional workup, monitoring, and potential treatment (regular phlebotomy) Mild intermittent asthma Not in acute exacerbation, previously not inhalers Continue rescue albuterol inhaler Arthritis Acetaminophen Bilateral hearing loss Worsening x2 years Follow up outpatient with audiology Given benign HPI/ROS and physical exam, there are no acute medical conditions requiring additional treatment and workup at this time. There are no medical contraindications preventing patient's transfer to [facility]. Patient educated on: diagnosis Informed Consent: understands Reason for continued inpatient stay Substantial Risk for: stable for discharge and rapid decompensation Time Spent With Patient Time: Total time managing care of this patient today ____ minutes.
[2024-05-02] MEDS: OLANZapine 5 MG TABLET PO (17:59)
[2024-05-02 20:00] VITALS: BP 125/70; PULSE 79; RESP 17; TEMP 36.4; O2SAT 96
[2024-05-03] MEDS: Acetaminophen 325 MG TABLET 650 MG PO (06:48)
[2024-05-03 08:47] VITALS: BP 123/63; PULSE 72; RESP 16; TEMP 36.4; O2SAT 96
[2024-05-03] MEDS: Multivitamin TABLET 1 TAB PO (08:48)
[2024-05-03] MEDS: Sertraline HCL 25 MG TABLET PO (08:48)
[2024-05-03] MEDS: Divalproex Sodium 250 MG TABLET.DR PO ×2 (08:48→21:08)
[2024-05-03] MEDS: Famotidine 20 MG TABLET PO ×2 (08:48→21:08)
[2024-05-03] MEDS: OLANZapine 5 MG TABLET PO (08:48)
[2024-05-03] MEDS: Aspirin 81 MG TAB.CHEW PO (08:48)
[2024-05-03] MEDS: amLODIPine Besylate 2.5 MG TABLET 7.5 MG PO (08:48)
[2024-05-03] MEDS: Loratadine 10 MG TABLET PO (08:48)
[2024-05-03] MEDS: Folic Acid 1 MG TABLET PO (08:48)
[2024-05-03] MEDS: Lidocaine 4 % Patch ADH..PATCH 1 PATCH TRANSDERMA (11:00)
[2024-05-03] MEDS: hydrOXYzine HCL 25 MG TABLET PO (14:37)
--- NOTE | 2024-05-03 16:04 | HO.PSYCHPN ---
Subjective Subjective Date of Service: 05/03/24 Reason For Visit: f32.A Subjective Notes: Conditional Voluntary Healthcare Proxy: No Guardianship: No Medical Problems Affecting Mental Status: No Interim History: Team reports pt will be scheduled for discharge to [facility] on 05/04. Pt reports he is anxious, nervous, excited and happy. I hope this will work for me. We continue to work on an ENT appt to assist pt in getting hearing aides and this will continue post discharge, which pt verbalizes understanding of. Denies SI/HI/AH/VH. Denies med SE Medication Compliance: Yes Side effects from medications: No Attending Groups: Intermittent Review of Systems Acute medical concerns: No Review of Systems Review of Systems Denies today Mental Status Exam Mental Status Exam Patient Appearance: Appropriate Patient Orientation: Person, Place, Time and Situation Level of Consciousness: Alert Patient Behavior: Talkative and Good Eye Contact Mood Description: Appropriate and Apprehensive Affect Description: Appropriate and Apprehensive Patient Cognition Impaired: No Ability to Follow Directions: Good Speech Pattern: Spontaneous Speech Hallucinations: None Delusions: Not Present Perceptual Disturbances: Depersonalization Thought Content: positive for Perseveration Judgement: Good Diagnostics Vital Signs (24Hr): Vital Signs - 24 hr 05/02/24 20:00 05/03/24 08:47 Temperature 97.5 F 97.5 F Pulse Rate 79 72 Respiratory Rate 17 16 Blood Pressure 125/70 123/63 Pulse Oximetry 96 96 Oxygen Delivery Method Room Air Room Air BMI result Body Mass Index 30.7 Labs 04/30/24 08:46 04/30/24 08:46 Imaging Radiology Impressions: ITS Impressions Shoulder X-Ray 04/03/24 00:35 IMPRESSION: No acute abnormalities. Electronically signed by: Jigar Benjamin MD 04/03/2024 07:30 AM EDT RP Chest X-Ray 04/13/24 19:10 IMPRESSION: Asymmetric elevation of the right hemidiaphragm with mild subsegmental atelectasis in the right lower lung. Electronically signed by: Keyanna Olea MD 04/13/2024 08:56 PM EDT RP Head CT 04/15/24 18:47 IMPRESSION: 1. No acute intracranial pathology. 2. Mild chronic microangiopathic ischemic changes. Electronically signed by: Yanci Ramirez MD 04/15/2024 11:23 PM EDT RP Cervical Spine CT 04/21/24 10:45 IMPRESSION: Multilevel spondylosis without acute fracture or trauma-related listhesis. Thyroglossal duct cyst, infrahyoid. . Electronically signed by: Florencio Carrillo MD 04/21/2024 12:02 PM EDT RP Head CT 04/21/24 10:45 IMPRESSION: No acute fracture, bony calvarium. No acute intracranial hemorrhage. Small vessel occlusive disease. Superimposed acute stroke/nonhemorrhagic ischemia cannot be excluded. Polypoid paranasal sinus disease. Blood products versus fungal infection, paranasal sinuses. Electronically signed by: Florencio Carrillo MD 04/21/2024 11:35 AM EDT RP Hip X-Ray 04/21/24 10:50 IMPRESSION: No acute fracture seen. Slight superior left hip joint space narrowing. Electronically signed by: Rocco Vila MD 04/21/2024 04:18 PM EDT RP Medications Medications Current Medications Acetaminophen (Acetaminophen 325 Mg Tablet) 650 mg PO Q6H PRN PRN Reason: Headache/Pain Mild Scale (1-3) Last Admin: 05/03/24 06:48 Dose: 650 mg Al Hydroxide/Mg Hydroxide (Magnesium Hydrox/Alum Hydrox 30 Ml Oral.Susp) 30 ml PO Q6H PRN PRN Reason: Heartburn/Nausea Last Admin: 04/29/24 11:24 Dose: 30 ml Albuterol Sulfate (Albuterol Sulfate 90 Mcg 8 Gm Inhaler) 2 puff INHALE RQ4H PRN PRN Reason: Shortness of Breath Last Admin: 05/01/24 08:04 Dose: 2 puff Amlodipine Besylate (Amlodipine Besylate 2.5 Mg Tablet) 7.5 mg PO DAILY [facility]; Protocol Last Admin: 05/03/24 08:48 Dose: 7.5 mg Aspirin (Aspirin 81 Mg Tab.Chew) 81 mg PO DAILY [facility] Last Admin: 05/03/24 08:48 Dose: 81 mg Divalproex Sodium (Divalproex Sodium 250 Mg Tablet.Dr) 250 mg PO BID [facility] Last Admin: 05/03/24 08:48 Dose: 250 mg Famotidine (Famotidine 20 Mg Tablet) 20 mg PO BID [facility] Last Admin: 05/03/24 08:48 Dose: 20 mg Folic Acid (Folic Acid 1 Mg Tablet) 1 mg PO DAILY [facility] Last Admin: 05/03/24 08:48 Dose: 1 mg Hydrocortisone (Hydrocortisone 1 % Cream 28.35 Gm Tube) 1 appl TOPICAL BID PRN; Protocol PRN Reason: ankle rash Hydroxyzine HCl (Hydroxyzine Hcl 25 Mg Tablet) 25 mg PO Q6H PRN PRN Reason: Anxiety Last Admin: 05/03/24 14:37 Dose: 25 mg Ibuprofen (Ibuprofen 600 Mg Tablet) 600 mg PO Q6H PRN PRN Reason: moderate pain Last Admin: 05/02/24 20:58 Dose: 600 mg Lidocaine (Lidocaine 4 % Patch Adh..Patch) 1 patch TRANSDERMA DAILY [facility]; Protocol Last Admin: 05/03/24 11:00 Dose: 1 patch Loratadine (Loratadine 10 Mg Tablet) 10 mg PO DAILY [facility] Last Admin: 05/03/24 08:48 Dose: 10 mg Magnesium Hydroxide (Milk Of Magnesia 30 Ml Oral.Susp) 30 ml PO DAILY PRN PRN Reason: Constipation Last Admin: 04/11/24 08:39 Dose: 30 ml Melatonin (Melatonin 3 Mg Tablet) 6 mg PO BEDTIME [facility] Last Admin: 05/02/24 20:59 Dose: 6 mg Multivitamins/Vitamin C (Multivitamin Tablet) 1 tab PO DAILY [facility] Last Admin: 05/03/24 08:48 Dose: 1 tab Nicotine Polacrilex (Nicotine Polacrilex 2 Mg Gum) 2 mg BUCCAL Q2H PRN PRN Reason: Nicotine Cravings Olanzapine (Olanzapine 5 Mg Tablet) 5 mg PO Q4H PRN PRN Reason: AH or agitiation Last Admin: 05/03/24 08:48 Dose: 5 mg Ondansetron HCl (Ondansetron Odt 4 Mg Tab.Rapdis) 4 mg TRANSLINGU Q6H PRN PRN Reason: Nausea and Vomiting Last Admin: 04/27/24 12:56 Dose: 4 mg Quetiapine Fumarate (Quetiapine Fumarate 25 Mg Tablet) 75 mg PO BEDTIME [facility] Last Admin: 05/02/24 20:58 Dose: 75 mg Sertraline HCl (Sertraline Hcl 25 Mg Tablet) 25 mg PO DAILY [facility] Last Admin: 05/03/24 08:48 Dose: 25 mg Sodium Chloride (Sodium Chloride 0.65 % Nasal 44 Ml Sprbtl) 1 spray NOSTRIL-B Q1H PRN PRN Reason: Shortness of Breath/Wheezing Last Admin: 05/02/24 08:38 Dose: 1 spray Trazodone HCl (Trazodone Hcl 50 Mg Tablet) 50 mg PO BEDTIME MRX1 PRN PRN Reason: Insomnia Last Admin: 05/02/24 20:59 Dose: 50 mg Trolamine Salicylate (Trolamine Salicylate 10 % Cream 141 Gm Tube) 1 appl TOPICAL BID PRN; Protocol PRN Reason: hip pain Last Admin: 04/26/24 10:17 Dose: 1 appl Allergies Allergies Allergy/AdvReac Type Severity Reaction Status Date / Time No Known Allergies Allergy Verified 03/31/24 03:15 Assessment & Plan Assessment & Plan (1) PTSD (post-traumatic stress disorder): Status: Acute Code(s): F43.10 - Post-traumatic stress disorder, unspecified (2) MDD (major depressive disorder), recurrent episode: Status: Acute Code(s): F33.9 - Major depressive disorder, recurrent, unspecified Plan Hospital course: 05/01 continue treatment plan 05/02 continue treatment plan 05/03 Discharge to [facility] on 05/04. Pt is in agreement with this plan. Patient is a 63-year-old male with a PMH significant for hemochromatosis, arthritis, asthma, hard of hearing, left eye blindness, and depression who was admitted to [facility] for increasing depression with SI and HI. Patient has tentatively been accepted to [facility]. Hospitalist consult for medical clearance for discharge. Patient has no acute medical complaints at this time. Mood disorder Plan as per Psychiatry ?Hemochromatosis Patient reports history of hemochromatosis, unclear where or by whom Patient does not follow with Hematology, unclear if ever sought treatment Iron elevated 180, TIBC low at 205, iron saturation elevated at 88%, ferritin Mild transaminitis, at baseline Pt asymptomatic Needs to follow up outpatient with PCP and/or Hematology for additional workup, monitoring, and potential treatment (regular phlebotomy) Mild intermittent asthma Not in acute exacerbation, previously not inhalers Continue rescue albuterol inhaler Arthritis Acetaminophen Bilateral hearing loss Worsening x2 years Follow up outpatient with audiology Given benign HPI/ROS and physical exam, there are no acute medical conditions requiring additional treatment and workup at this time. There are no medical contraindications preventing [facility] transfer to [facility]. Reason for continued inpatient stay Substantial Risk for: stable for discharge Time Spent With Patient Time: Total time managing care of this patient today ____ minutes.
[2024-05-03 17:58] LABS: Mumps Virus IgG Antibody <9.00 AU/mL; Rubeola IgG (Measles) <13.50 AU/mL
[2024-05-03 20:00] VITALS: BP 129/95; PULSE 84; RESP 16; TEMP 36.7; O2SAT 97
[2024-05-03] MEDS: Ibuprofen 600 MG TABLET PO (21:08)
[2024-05-03] MEDS: QUEtiapine Fumarate 25 MG TABLET 75 MG PO (21:08)
[2024-05-03] MEDS: Melatonin 3 MG TABLET 6 MG PO (21:08)
[2024-05-03] MEDS: traZODone HCL 50 MG TABLET PO (21:08)
[2024-05-04] MEDS: Acetaminophen 325 MG TABLET 650 MG PO (07:09)
[2024-05-04 08:30] VITALS: BP 150/74; PULSE 86; RESP 16; TEMP 36.4; O2SAT 98
[2024-05-04] MEDS: Loratadine 10 MG TABLET PO (08:32)
[2024-05-04] MEDS: hydrOXYzine HCL 25 MG TABLET PO (08:32)
[2024-05-04] MEDS: Multivitamin TABLET 1 TAB PO (08:32)
[2024-05-04] MEDS: Lidocaine 4 % Patch ADH..PATCH 1 PATCH TRANSDERMA (08:32)
[2024-05-04] MEDS: Famotidine 20 MG TABLET PO (08:32)
[2024-05-04] MEDS: Sertraline HCL 25 MG TABLET PO (08:32)
[2024-05-04] MEDS: Divalproex Sodium 250 MG TABLET.DR PO (08:32)
[2024-05-04] MEDS: Aspirin 81 MG TAB.CHEW PO (08:32)
[2024-05-04] MEDS: Folic Acid 1 MG TABLET PO (08:32)
[2024-05-04] MEDS: amLODIPine Besylate 2.5 MG TABLET 7.5 MG PO (08:32)
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
== END 2024-05-04 09:34 | disposition skilled nursing facility (03) | DRG 885 ==
PROVIDERS: Psychiatry & Neurology Psychiatry; Registered Nurse; Student in an Organized Health Care Education/Training Program; Admitting Provider Psychiatry & Neurology Psychiatry; Visit Provider Clinical Nurse Specialist Psychiatric/Mental Health, Adult
DX: F33.9 Major depressive disorder, recurrent, unspecified (principal); R45.851 Suicidal ideations; E83.119 Hemochromatosis, unspecified; J45.909 Unspecified asthma, uncomplicated; H91.93 Unspecified hearing loss, bilateral; M19.90 Unspecified osteoarthritis, unspecified site; K29.70 Gastritis, unspecified, without bleeding; F43.10 Post-traumatic stress disorder, unspecified; Z23 Encounter for immunization; Z87.891 Personal history of nicotine dependence; Z79.82 Long term (current) use of aspirin; Z79.899 Other long term (current) drug therapy
CPT/HCPCS: 36415; 70450; 71045; 72125; 73030; 73502; 80053; 80061; 80076; 80164; 82140; 82607; 82728; 82746; 82947; 83540; 84443; 84484; 85025; 86695; 86696; 86704; 86706; 86709; 86735; 86762; 86765; 86787; 86803; 87340; 90715; 93005

== ENCOUNTER 2024-03-31 02:23 | Outpatient (BNV) | payer MEDICARE, MEDICAID, SELFPAY | END 2024-04-13 18:49 | PROVIDERS: Admitting Provider Psychiatry & Neurology Psychiatry; Visit Provider Internal Medicine | DX: R07.9 Chest pain, unspecified (principal) | CPT/HCPCS: 93010 ==

== ENCOUNTER → 2024-03-31 02:23 | Outpatient (BNV) | payer MEDICARE, MEDICAID, SELFPAY | PROVIDERS: Admitting Provider Psychiatry & Neurology Psychiatry; Visit Provider Registered Nurse | DX: F33.2 Major depressive disorder, recurrent severe without psychotic features (principal); F43.11 Post-traumatic stress disorder, acute | CPT/HCPCS: 90792; 99231; 99232; 99238; 99499 ==

== ENCOUNTER → 2024-03-31 02:23 | Outpatient (BNV) | payer MEDICARE, MEDICAID, SELFPAY | PROVIDERS: Admitting Provider Psychiatry & Neurology Psychiatry; Visit Provider Student in an Organized Health Care Education/Training Program | DX: E83.119 Hemochromatosis, unspecified (principal) | CPT/HCPCS: 99231; 99429; 99499 ==

== ENCOUNTER 2024-04-29 14:20 | Outpatient (REF) | payer MEDICARE, MEDICAID, SELFPAY | END 2024-04-29 14:21 | disposition home or self-care (01) | LOC: HO.SH 14:20 | PROVIDERS: Visit Provider Clinical Nurse Specialist Psychiatric/Mental Health, Adult | DX: Z01.118 Encounter for examination of ears and hearing with other abnormal findings (principal); H90.3 Sensorineural hearing loss, bilateral | CPT/HCPCS: 92557; 92567; 92588 ==